=== PATIENT | female | born 1955 | race African-American/Black ===

== ENCOUNTER 2017-05-25 08:40 | Inpatient (IN) | payer MEDICAID ==
--- NOTE | 2017-05-25 09:38 | ER Document Report ---
ED General - General Chief Complaint: Altered Mental Status Stated Complaint: CONFUSION Time Seen by Provider: 05/25/17 09:29 Information source: Patient Notes: 61-year-old female that presents to the emergency department with her brother-in -law secondary to some increased confusion noted over the last 24 hours. Patient lives alone and the [id number] states that she normally is oriented to person place and time. He states that he called on the phone and she was "saying strange things". He states when he went to her house she was talking to people that were not present. She also stated that she wanted to visit his mother who has been for many years. On interviewing the patient herself, she denies any and all pain. Specifically denies any headache, chest pain, or abdominal pain. She denies any weakness or numbness, nausea, vomiting, cough, or fevers. She does not know why she is here. She did report that she believes she possibly fell yesterday but does not elaborate. TRAVEL OUTSIDE OF THE [place] IN LAST 30 DAYS: No - HPI Onset: Other - See above Onset/Duration: Persistent Quality of pain: No pain Severity: Moderate Pain Level: Denies Associated symptoms: Other - See above Exacerbated by: Denies Relieved by: Denies Similar symptoms previously: No Recently seen / treated by doctor: No - Related Data Allergies/Adverse Reactions: Penicillins Allergy (Severe, Verified 05/25/17 09:51) Hives Home Medications: Current Home Medications Amlodipine Besylate/Benazepril [Amlodipine-Benazepril 5-20 mg] 1 tab PO DAILY [History] Cetirizine HCl [Zyrtec 10 mg Tablet] 1 tab PO DAILY 05/25/17 [History] Past Medical History - General Information source: Patient - Social History Smoking Status: Unknown if Ever Smoked Cigarette use (# per day): No Chew tobacco use (# tins/day): No Smoking Education Provided: No Frequency of alcohol use: None Drug Abuse: None Family History: Reviewed & Not Pertinent Past Surgical History: Denies: Hx Pacemaker - Immunizations Hx Diphtheria, Pertussis, Tetanus Vaccination: No Review of Systems - Review of Systems Constitutional: denies: Fever EENT: denies: Eye discharge, Nose discharge Cardiovascular: denies: Chest pain, Palpitations Respiratory: denies: Short of breath Gastrointestinal: denies: Vomiting Genitourinary: denies: Dysuria Musculoskeletal: denies: Leg swelling Skin: Other - no hives. denies: Rash Neurological/Psychological: Other - no slurred speech -: Yes All other systems reviewed and negative Physical Exam - Vital signs Vitals: Temp Pulse Resp BP Pulse Ox 98.2 F 70 16 152/65 H 99 05/25/17 08:56 05/25/17 08:56 05/25/17 08:56 05/25/17 08:56 05/25/17 08:56 Notes: Reviewed vital signs and nursing note as charted by RN. CONSTITUTIONAL: Alert and polite. Patient is disoriented to president, place, and time HEAD: Normocephalic; atraumatic EYES: PERRL; Sclerae non-icteric ENT: Normal nose; no rhinorrhea; dry mucous membranes; pharynx without lesions noted NECK: Supple without meningismus; non-tender; no carotid bruits; no cervical lymphadenopathy, no masses CARD: Regular rate and rhythm; no murmurs, no clicks, no rubs, no gallops; symmetric distal pulses RESP: Normal chest excursion without splinting or tachypnea; breath sounds clear and equal bilaterally ABD/GI: Normal bowel sounds; non-distended; soft, non-tender, no palpable organomegaly or masses BACK: The back appears normal and is non-tender to palpation EXT: Normal ROM in all joints; non-tender to palpation; no edema SKIN: No acute lesions noted NEURO: CN 2-12 intact. Moves all extremities equally; 5 out of 5 bilateral upper and lower extremity strength with sensation intact to light touch PSYCH: The patient's mood and manner are appropriate. Grooming and personal hygiene are appropriate. Course - Re-evaluation Re-evalutation: 05/25/17 09:38 Given the history and physical examination I would like to evaluate for the possible causes of acute delirium. Patient currently has no pain and no focal neurological deficits. 05/25/17 10:01 EKG shows a heart of 72, normal sinus rhythm, normal axis, no obvious ST elevation or depression 05/25/17 10:39 No change in mental status or neurologic exam. CT scan of the head as recorded. Labs show some mild dehydration with an elevated sodium and chloride. Urine culture has been sent with an unremarkable urinalysis. Patient did have an admission in August 2015 with a diagnosis of encephalopathy most likely related to urinary tract infection. Patient will be admitted to the hospitalist service. - Vital Signs Vital signs: Temp Pulse Resp BP Pulse Ox 98.2 F 70 17 163/73 H 99 05/25/17 08:56 05/25/17 08:56 05/25/17 10:01 05/25/17 10:01 05/25/17 10:01 - Laboratory Result Diagrams: 05/25/17 09:32 05/25/17 09:32 Laboratory results interpreted by me: 05/25/17 05/25/17 05/25/17 09:14 09:32 09:32 Hct 35.2 L Sodium 145.4 H Chloride 109 H Carbon Dioxide 21 L BUN 27 H Calcium 10.6 H AST 53 H Total Protein 8.3 H Urine Protein 100 H Urine Ketones 20 H Urine Blood SMALL H Urine Urobilinogen 2.0 H Discharge - Discharge Clinical Impression: Altered mental status, unspecified Qualifiers: Altered mental status type: unspecified Qualified Code(s): R41.82 - Altered mental status, unspecified Condition: Fair Disposition: ADMITTED OBSERVATION Admitting Provider: Hospitalist Unit Admitted: Telemetry Referrals: KARI MYRICK MD [Primary Care Provider] - Follow up as needed
[2017-05-25 10:00] LABS: ABSOLUTE BASOPHILS # (AUTO) 0.1 10^3/uL (0.0-0.2); ABSOLUTE EOSINOPHILS # (AUTO) 0.1 10^3/uL (0.0-0.6); ABSOLUTE MONOCYTES (AUTO) 0.6 10^3/uL (0.1-1.4); ABSOLUTE NEUT (AUTO) 4.1 10^3/uL (1.7-8.2); EOSINOPHILS % (AUTO) 1.3 % (0-6); HEMATOCRIT 35.2 % (36.0-47.0); MEAN CORPUSCULAR HEMOGLOBIN 31.8 pg (27.0-33.4); MEAN CORPUSCULAR HGB CONC 34.1 g/dL (32.0-36.0); MEAN CORPUSCULAR VOLUME 93 fl (80-97); MONOCYTES % (AUTO) 8.1 % (3-13); PLATELET COUNT 317 10^3/uL (150-450); RED BLOOD COUNT 3.78 10^6/uL (3.72-5.28); RED CELL DISTRIBUTION WIDTH 12.9 % (11.5-14.0); SEGMENTED NEUTROPHILS % (AUTO) 59.6 % (42-78); TOTAL CELLS COUNTED % (AUTO) 100 %; WHITE BLOOD COUNT 6.8 10^3/uL (4.0-10.5)
[2017-05-25 10:01] LABS: INTERNATIONAL RATION (INR) 1.05; PROTHROMBIN TIME 14.4 SEC (11.4-15.4)
--- NOTE | 2017-05-25 10:02 | RADIOLOGY REPORT (SQ) ---
EXAM DESCRIPTION: CT HEAD WITHOUT COMPLETED DATE/TIME: 05/25/2017 9:43 am REASON FOR STUDY: 17, ams COMPARISON: 12/26/2015 TECHNIQUE: Axial images acquired through the brain without intravenous contrast. Images reviewed wi th bone, brain and subdural windows. Images stored on PACS. All CT scanners at this facility use dose modulation, iterative reconstruction, and/or weight based d osing when appropriate to reduce radiation dose to as low as reasonably achievable (ALARA). [facility]: Dose Right [facility]: CareDose [facility]: Dose Right [facility]: Teradose 4D [facility]: Smart Technologies RADIATION DOSE: CT Rad equipment meets quality standard of care and radiation dose reduction techniq ues were employed. CTDIvol: 64.6 mGy. DLP: 1034 mGy-cm. mGy. LIMITATIONS: None. FINDINGS: VENTRICLES: Compensatory enlargement of the right lateral ventricle and right occipital ho rn adjacent to encephalomalacia. No change. Ventricular system midline. CEREBRUM: There is again evidence of chronic right occipital parietal encephalomalacia unchanged. Co mpensatory enlargement of the right occipital horn noted. CEREBELLUM: No masses. No hemorrhage. No alteration of density. No evidence for acute infarction. EXTRAAXIAL SPACES: No fluid collections. No masses. ORBITS AND GLOBE: No intra- or extraconal masses. Normal contour of globe without masses. CALVARIUM: No fracture. PARANASAL SINUSES: No fluid or mucosal thickening. SOFT TISSUES: No mass or hematoma. OTHER: No other significant finding. IMPRESSION: NO SIGNIFICANT INTERVAL CHANGE. EVIDENCE OF ACUTE STROKE: NO. COMMENT: Quality ID # [id number]: Final reports with documentation of one or more dose reduction techniques (e.g., Automated exposure control, adjustment of the mA and/or kV according to patient size, use of iterative reconstruction technique) TECHNICAL DOCUMENTATION: JOB ID: [id number] SC-69 2010 [employer]- All Rights Reserved
[2017-05-25 10:12] LABS: ALANINE AMINOTRANSFERASE 36 U/L (9-52); ALBUMIN 4.5 g/dL (3.5-5.0); ALKALINE PHOSPHATASE 49 U/L (38-126); ANION GAP 15 (5-19); ASPARTATE AMINO TRANSFERASE 53 U/L (14-36); BILIRUBIN,DIRECT 0.4 mg/dL (0.0-0.4); BILIRUBIN,TOTAL 0.7 mg/dL (0.2-1.3); BLOOD UREA NITROGEN 27 mg/dL (7-20); CALCIUM 10.6 mg/dL (8.4-10.2); CARBON DIOXIDE 21 mmol/L (22-30); CHLORIDE 109 mmol/L (98-107); GLUCOSE 106 mg/dL (75-110); SODIUM 145.4 mmol/L (137-145); TOTAL PROTEIN 8.3 g/dL (6.3-8.2)
[2017-05-25 10:24] LABS: APPEARANCE,URINE SLIGHTLY-CLOUDY; BILIRUBIN,URINE NEGATIVE (NEGATIVE); COLOR,URINE YELLOW; GLUCOSE, URINE NEGATIVE (NEGATIVE); KETONES,URINE 20 mg/dL (NEGATIVE); LEUKOCYTE ESTERASE,URINE NEGATIVE (NEGATIVE); NITRITE,URINE NEGATIVE (NEGATIVE); PROTEIN,URINE 100 mg/dL (NEGATIVE); URINE SPECIFIC GRAVITY 1.025
[2017-05-25] MEDS ORDERED: NORMAL SALINE 1000 ML 1,000 ML IV ONE (10:31)
[2017-05-25] MEDS ORDERED: ACETAMINOPHEN 325 MG TABLET PO PRN (10:47)
[2017-05-25] MEDS ORDERED: INSULIN LISPRO 100 UNIT/ML 3 ML VIAL SUBCUT PRN (11:26)
[2017-05-25] MEDS ORDERED: DEXTROSE 50%-WATER 25 GM/50 ML DISP.SYRIN IV PRN ×2 (11:26)
[2017-05-25] MEDS ORDERED: GLUCAGON,HUMAN RECOMB 1 MG INJ IM PRN (11:26)
[2017-05-25] MEDS ORDERED: DEXTROSE 40% GEL 15 GM TUBE PO PRN ×2 (11:26)
--- NOTE | 2017-05-25 11:47 | PDOC H&P ---
History of Present Illness Admission Date/PCP: KARI MYRICK MD May 25, 2017 Patient complains of: No complaints History of Present Illness: SIRENA ZHAO is a 61 year old female who was brought into emergency room by her power of associate attorney who is her [id number]. Accordingly patient was walking down the streets and appeared to be disoriented. Upon inquiring she stated that she was going to go [place] [facility] to see her [id number]. The latter had around 20 years ago. Patient was also talking to people that were not in the room. Patient lives by herself however the power of associate attorney lives next door. He stated that when his brother he was asked to serve as power of associate attorney since she did carry a history of her brain tumor. Patient had a similar episode around a year ago. Up to his knowledge she takes care of cocaine and others chores at home. He admits that he does not know for how long she has been disoriented but he just noticed today. He also states that he thinks that she needs to go to a [place] [facility] since he cannot take care of her since he works. 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 Lives with: Alone Smoking Status: Unknown if Ever Smoked Frequency of Alcohol Use: None Hx Recreational Drug Use: No Drugs: None Hx Prescription Drug Abuse: No Family History Family History: Reviewed & Not Pertinent Parental Family History Reviewed: Yes Children Family History Reviewed: Yes Sibling(s) Family History Reviewed.: Yes Medication/Allergy Home Medications: Ibuprofen [Motrin 800 mg Tablet] 800 mg PO [id number] 08/23/15 Metformin HCl [Glucophage 500 mg Tablet] 500 mg PO BIDACBS #60 tablet 08/24/15 Amlodipine Besylate/Benazepril [Amlodipine-Benazepril 5-20 mg] 1 tab PO DAILY Cetirizine HCl [Zyrtec 10 mg Tablet] 1 tab PO DAILY 05/25/17 Allergies/Adverse Reactions: Penicillins Allergy (Severe, Verified 05/25/17 09:51) Hives Review of Systems ROS unobtainable: Due to mental status Physical Exam Vital Signs: Temp Pulse Resp BP Pulse Ox 98.2 F 70 17 163/73 H 99 05/25/17 08:56 05/25/17 08:56 05/25/17 10:01 05/25/17 10:01 05/25/17 10:01 Intake & Output 05/24/17 05/25/17 05/26/17 06:59 06:59 06:59 Weight 61 kg General appearance: PRESENT: no acute distress, cooperative, well-developed, well-nourished Head exam: PRESENT: atraumatic, normocephalic Eye exam: PRESENT: conjunctiva pink, EOMI, PERRLA. ABSENT: scleral icterus Ear exam: PRESENT: normal external ear exam Mouth exam: PRESENT: dry mucosa, neck supple Neck exam: PRESENT: full ROM. ABSENT: JVD, lymphadenopathy, tenderness, thyromegaly Respiratory exam: PRESENT: clear to auscultation oneil Cardiovascular exam: PRESENT: RRR. ABSENT: diastolic murmur, systolic murmur Vascular exam: PRESENT: normal capillary refill GI/Abdominal exam: PRESENT: normal bowel sounds, soft. ABSENT: guarding, tenderness Extremities exam: ABSENT: joint swelling, pedal edema Neurological exam: PRESENT: alert, awake, oriented to person, oriented to place , other - Mild left sided weakness Psychiatric exam: PRESENT: appropriate affect, normal mood Skin exam: PRESENT: intact, normal color Results Laboratory Results: 05/25/17 09:32 05/25/17 09:32 05/25/17 05/25/17 05/25/17 09:14 09:32 09:32 WBC 6.8 RBC 3.78 Hgb 12.0 Hct 35.2 L MCV 93 MCH 31.8 MCHC 34.1 RDW 12.9 Plt Count 317 Seg Neutrophils % 59.6 Lymphocytes % 30.0 Monocytes % 8.1 Eosinophils % 1.3 Basophils % 1.0 Absolute Neutrophils 4.1 Absolute Lymphocytes 2.0 Absolute Monocytes 0.6 Absolute Eosinophils 0.1 Absolute Basophils 0.1 Sodium 145.4 H Potassium 4.0 Chloride 109 H Carbon Dioxide 21 L Anion Gap 15 BUN 27 H Creatinine 0.94 Est GFR ( Amer) > 60 Est GFR (Non-Af Amer) > 60 Glucose 106 Calcium 10.6 H Total Bilirubin 0.7 AST 53 H ALT 36 Alkaline Phosphatase 49 Total Protein 8.3 H Albumin 4.5 Urine Color YELLOW Urine Appearance SLIGHTLY-CLOUDY Urine pH 5.0 Ur Specific [place] 1.025 Urine Protein 100 H Urine Glucose (UA) NEGATIVE Urine Ketones 20 H Urine Blood SMALL H Urine Nitrite NEGATIVE Ur Leukocyte Esterase NEGATIVE Urine WBC (Auto) 2 Urine RBC (Auto) 3 05/25/17 09:32 Troponin I < 0.012 Impressions: Head CT 05/25/17 09:31 IMPRESSION: NO SIGNIFICANT INTERVAL CHANGE. EVIDENCE OF ACUTE STROKE: NO. 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 Since blood pressure is elevated and to cover for the possibility of hypertensive encephalopathy will increase Norvasc to 10 mgs daily. To order vitamin B12 level since on metformin. Also to order ammonia and TSH level. Pseudodementia is also considered as part of the differential. She has a BUN slightly elevated to order stool for occult blood and will trend hemoglobin every 6 hours 4 (3) Old cerebrovascular accident (CVA) without late effect Is this a current diagnosis for this admission?: Yes Plan: Supportive (4) Dehydration Is this a current diagnosis for this admission?: Yes Plan: Continue IV fluids (5) Hypertensive urgency Is this a current diagnosis for this admission?: Yes Plan: To increase Norvasc to 10 mg p.o. daily and will continue lisinopril 20 mg p.o. daily. To request hydralazine for systolic blood pressure higher or equal to 160 or diastolic blood pressure higher or equal to 110. - Time Time Spent: 50 to 70 Minutes Medications reviewed and adjusted accordingly: Yes Anticipated discharge: SNF Within: within 48 hours - Inpatient Certification Based on my medical assessment, after consideration of the patient's comorbidities, presenting symptoms, or acuity I expect that the services needed warrant INPATIENT care.: No I certify that my determination is in accordance with my understanding of Medicare's requirements for reasonable and necessary INPATIENT services [42 CFR 412.3e].: Yes Medical Necessity: Need For IV Fluids
[2017-05-25] MEDS ORDERED: HYDRALAZINE HCL INJ/PF 20 MG/1 ML SDV IV PRN (11:48)
[2017-05-25] MEDS ORDERED: AMLODIPINE BESYLATE 10 MG TABLET PO ONE (12:00)
[2017-05-25] MEDS ORDERED: LISINOPRIL 10 MG TABLET PO ONE (12:00)
[2017-05-25] MEDS: NORMAL SALINE 1000 ML 1,000 ML IV PRN (12:27)
--- NOTE | 2017-05-25 16:41 | EKG REPORT ---
SEVERITY:- NORMAL ECG - SINUS RHYTHM : Confirmed by: Maynor Caraballo MD 25-May-2017 16:40:16
[2017-05-25] MEDS ORDERED: MIRTAZAPINE 15 MG TABLET PO SCH (22:00)
[2017-05-25] MEDS ORDERED: OLANZAPINE 2.5 MG TABLET PO SCH (22:00)
[2017-05-26] MEDS: NORMAL SALINE 1000 ML 1,000 ML IV PRN (05:21)
[2017-05-26 06:52] LABS: ABSOLUTE BASOPHILS # (AUTO) 0.1 10^3/uL (0.0-0.2); ABSOLUTE EOSINOPHILS # (AUTO) 0.2 10^3/uL (0.0-0.6); ABSOLUTE LYMPHOCYTES (AUTO) 2.4 10^3/uL (0.5-4.7); ABSOLUTE MONOCYTES (AUTO) 0.4 10^3/uL (0.1-1.4); ABSOLUTE NEUT (AUTO) 2.4 10^3/uL (1.7-8.2); BASOPHILS % (AUTO) 1.5 % (0-2); EOSINOPHILS % (AUTO) 3.9 % (0-6); HEMATOCRIT 30.6 % (36.0-47.0); HEMOGLOBIN 10.6 g/dL (12.0-15.5); LYMPHOCYTES % (AUTO) 43.1 % (13-45); MEAN CORPUSCULAR HEMOGLOBIN 31.9 pg (27.0-33.4); MEAN CORPUSCULAR HGB CONC 34.6 g/dL (32.0-36.0); MEAN CORPUSCULAR VOLUME 92 fl (80-97); MONOCYTES % (AUTO) 8.1 % (3-13); PLATELET COUNT 255 10^3/uL (150-450); RED BLOOD COUNT 3.32 10^6/uL (3.72-5.28); RED CELL DISTRIBUTION WIDTH 12.7 % (11.5-14.0); SEGMENTED NEUTROPHILS % (AUTO) 43.4 % (42-78); TOTAL CELLS COUNTED % (AUTO) 100 %; WHITE BLOOD COUNT 5.5 10^3/uL (4.0-10.5)
[2017-05-26 07:16] LABS: ALANINE AMINOTRANSFERASE 36 U/L (9-52); ALBUMIN 3.6 g/dL (3.5-5.0); ALKALINE PHOSPHATASE 42 U/L (38-126); ANION GAP 8 (5-19); ASPARTATE AMINO TRANSFERASE 40 U/L (14-36); BILIRUBIN,DIRECT 0.2 mg/dL (0.0-0.4); BILIRUBIN,TOTAL 0.5 mg/dL (0.2-1.3); BLOOD UREA NITROGEN 15 mg/dL (7-20); CALCIUM 9.4 mg/dL (8.4-10.2); CARBON DIOXIDE 24 mmol/L (22-30); CHLORIDE 111 mmol/L (98-107); GLUCOSE 109 mg/dL (75-110); MAGNESIUM 1.5 mg/dL (1.6-2.3); POTASSIUM 3.9 mmol/L (3.6-5.0); SODIUM 142.9 mmol/L (137-145); TOTAL PROTEIN 6.7 g/dL (6.3-8.2)
[2017-05-26] MEDS: MAGNESIUM SULFATE/D5W 1 GM/100 ML RTUPB IV SCH ×3 (08:48→12:49)
[2017-05-26] MEDS: AMLODIPINE BESYLATE 10 MG TABLET PO SCH (09:33)
[2017-05-26] MEDS: LISINOPRIL 10 MG TABLET PO SCH (09:33)
[2017-05-26] MEDS ORDERED: HALOPERIDOL LACTATE INJ 5 MG/1 ML VIAL IV ONE (12:45)
--- NOTE | 2017-05-26 15:15 | PDOC PROGRESS REPORT ---
Subjective Progress Note for:: 05/26/17 Subjective:: The patient was admitted for disorientation and hypertensive urgency. She remains extremely confused. She is oriented to person only. Reason For Visit: ALTERED MENTAL STATUS Physical Exam Vital Signs: Temp Pulse Resp BP Pulse Ox 97.9 F 86 18 156/72 H 100 05/26/17 12:04 05/26/17 12:04 05/26/17 12:04 05/26/17 12:04 05/26/17 12:04 Intake & Output 05/25/17 05/26/17 05/27/17 06:59 06:59 06:59 Intake Total 648 Output Total 0 Balance 648 Weight 61.8 kg Additional comments: Today, the patient was able to tell me her name. She could not recall the events that occurred yesterday and she was speaking about a man who was walking up and down the [place] overnight. The patient was able to tell me that she was in the [facility] but had to be reminded that she is in [facility]. She told me that it was . She got extremely angry when i asked her questions about her orientation. The patient appears to be older than her stated age of 61. However, she did not appear to be in any distress. She appears to be nontoxic. Her facial appearance is unremarkable. She moves all 4 extremities. Lungs are clear to auscultation bilaterally. Her cardiac exam is regular. She does not have any murmurs, gallops or rubs. The abdomen is soft, flat and benign. The lower extremities are without edema. The skin is clean, warm, dry and intact without lesions or rashes. Results Laboratory Results: 05/26/17 06:23 05/26/17 06:23 05/26/17 05/26/17 06:23 06:23 WBC 5.5 RBC 3.32 L Hgb 10.6 L Hct 30.6 L MCV 92 MCH 31.9 MCHC 34.6 RDW 12.7 Plt Count 255 Seg Neutrophils % 43.4 Lymphocytes % 43.1 Monocytes % 8.1 Eosinophils % 3.9 Basophils % 1.5 Absolute Neutrophils 2.4 Absolute Lymphocytes 2.4 Absolute Monocytes 0.4 Absolute Eosinophils 0.2 Absolute Basophils 0.1 Sodium 142.9 Potassium 3.9 Chloride 111 H Carbon Dioxide 24 Anion Gap 8 BUN 15 Creatinine 0.67 Est GFR ( Amer) > 60 Est GFR (Non-Af Amer) > 60 Glucose 109 Calcium 9.4 Magnesium 1.5 L Total Bilirubin 0.5 AST 40 H ALT 36 Alkaline Phosphatase 42 Total Protein 6.7 Albumin 3.6 05/25/17 05/25/17 12:20 18:50 Troponin I < 0.012 < 0.012 Impressions: Head CT 05/25/17 09:31 IMPRESSION: NO SIGNIFICANT INTERVAL CHANGE. EVIDENCE OF ACUTE STROKE: NO. Assessment & Plan - Diagnosis (1) Hypercalcemia Is this a current diagnosis for this admission?: Yes Plan: Improved after hydration (2) Altered mental status, unspecified Qualifiers: Altered mental status type: disorientation Qualified Code(s): R41.0 - Disorientation, unspecified Is this a current diagnosis for this admission?: Yes Plan: I have not identified an acute source of delirium in this patient such as infection. She may have underlying dementia. Certainly, she is not fit for discharge to go home. (3) Dehydration Is this a current diagnosis for this admission?: Yes Plan: Patient has received IV fluids. (4) Diabetes Qualifiers: Diabetes mellitus type: type 2 Diabetes mellitus complication status: without complication Diabetes mellitus mcfp insulin use: without mcfp use Qualified Code(s): E11.9 - Type 2 diabetes mellitus without complications Is this a current diagnosis for this admission?: Yes Plan: Blood sugars appear to be under good control. Continue sliding scale. (5) Hypertensive urgency Is this a current diagnosis for this admission?: Yes Plan: Norvasc was increased and patient remains on lisinopril. (6) Old cerebrovascular accident (CVA) without late effect Is this a current diagnosis for this admission?: Yes - Time Time Spent with patient: 15-24 minutes Anticipated discharge: SNF - Plan Summary Plan Summary: The patient does not appear to be suitable for discharge to home. She will likely need placement.
[2017-05-26] MEDS ORDERED: HALOPERIDOL 2 MG TABLET PO PRN (15:16)
[2017-05-26] MEDS ORDERED: ZIPRASIDONE MESYLATE INJ/PF 20 MG SDV IM ONE (20:31)
[2017-05-27 07:02] LABS: ANION GAP 9 (5-19); BLOOD UREA NITROGEN 11 mg/dL (7-20); CALCIUM 9.9 mg/dL (8.4-10.2); CARBON DIOXIDE 23 mmol/L (22-30); CHLORIDE 113 mmol/L (98-107); GLUCOSE 97 mg/dL (75-110); POTASSIUM 3.7 mmol/L (3.6-5.0); SODIUM 145.1 mmol/L (137-145)
[2017-05-27] MEDS: AMLODIPINE BESYLATE 10 MG TABLET PO SCH (10:51)
[2017-05-27] MEDS: LISINOPRIL 10 MG TABLET PO SCH (10:51)
--- NOTE | 2017-05-27 11:50 | PDOC PROGRESS REPORT ---
Subjective Progress Note for:: 05/27/17 Subjective:: The patient was admitted for disorientation and hypertensive urgency. She remains extremely confused. She is oriented to person only. She was able to tell me today that she has been receiving disability for a previous history of a brain tumor. Unfortunately, she could not give me any additional details. Reason For Visit: ALTERED MENTAL STATUS Physical Exam Vital Signs: Temp Pulse Resp BP Pulse Ox 98.5 F 81 16 158/62 H 98 05/27/17 07:34 05/27/17 07:34 05/27/17 03:57 05/27/17 07:34 05/27/17 07:34 Intake & Output 05/26/17 05/27/17 05/28/17 06:59 06:59 06:59 Intake Total 648 1872 Output Total 0 Balance 648 1872 Weight 61.8 kg 66.3 kg Additional comments: The patient did not appear to be in any distress. She was pleasant with me this morning. Her facial appearance is unremarkable. She moves all 4 extremities and can follow commands. Her lungs are clear to auscultation bilaterally. Her cardiac exam is regular without murmurs, gallops or rubs. The abdomen is soft, flat and benign. Bowel sounds are present in all 4 quadrants. The lower extremities are warm to touch. No edema is present. The skin is warm, dry and intact without lesions or rashes. Results Laboratory Results: 05/26/17 06:23 05/27/17 06:04 05/27/17 06:04 Sodium 145.1 H Potassium 3.7 Chloride 113 H Carbon Dioxide 23 Anion Gap 9 BUN 11 Creatinine 0.72 Est GFR ( Amer) > 60 Est GFR (Non-Af Amer) > 60 Glucose 97 Calcium 9.9 Magnesium 2.0 05/25/17 05/25/17 12:20 18:50 Troponin I < 0.012 < 0.012 Impressions: Head CT 05/25/17 09:31 IMPRESSION: NO SIGNIFICANT INTERVAL CHANGE. EVIDENCE OF ACUTE STROKE: NO. Assessment & Plan - Diagnosis (1) Hypercalcemia Is this a current diagnosis for this admission?: Yes Plan: Improved after hydration (2) Altered mental status, unspecified Qualifiers: Altered mental status type: disorientation Qualified Code(s): R41.0 - Disorientation, unspecified Is this a current diagnosis for this admission?: Yes Plan: I have not identified an acute source of delirium in this patient such as infection. She may have underlying dementia. Certainly, she is not fit for discharge to go home. I will consult psychiatry. I was unable to find any old records regarding her diagnosis and care for the history of brain tumor. The patient has received Haldol as needed agitation. (3) Dehydration Is this a current diagnosis for this admission?: Yes Plan: Patient has received IV fluids. IV fluids were discontinued. 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 Continue sliding scale. (5) Hypertensive urgency Is this a current diagnosis for this admission?: Yes Plan: Norvasc was increased and patient remains on lisinopril. Blood pressures appear to be somewhat labile. Patient had low blood pressure this morning. I am not going to increase blood pressure medications further at this time. (6) Old cerebrovascular accident (CVA) without late effect Is this a current diagnosis for this admission?: Yes Plan: The patient does not present with any focal neurological defects at this time. - Time Time Spent with patient: 15-24 minutes - Inpatient Certification Medical Necessity: Significant Comorbidiites Make Outpatient Treatment Too Risky , Need Close Monitoring Due to Risk of Patient Decompensation, Need for Neurological Checks, Risk of Complication if Not Cared For in Hospital
--- NOTE | 2017-05-27 12:50 | Physician Advisory Note ---
Physician Advisor ProgressNote .: Pursuant to the plan [facility], I have reviewed the medical record for this patient. Physician Advisor Statement: Please consider documenting, if you agree: 1. "Acute hypernatremia, likely due to " 2. The systolic BPs 180+/ &/or diastolic BPs 120+, that support the dx of hypertensive urgency - or was this dx ruled out? Status: continues with mental status far from baseline, eval continuing past 2 MNs. Appropriate for change to Inpatient status. THanks! CK
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
[2017-05-27] MEDS ORDERED: DIVALPROEX SODIUM 250 MG TAB.SR.24H PO SCH (18:00)
[2017-05-27] MEDS ORDERED: DIVALPROEX SODIUM 250 MG TABLET.DR PO ONE (19:30)
[2017-05-27] MEDS: CLONIDINE HCL 0.1 MG TABLET PO PRN (21:32)
[2017-05-27] MEDS ORDERED: BUSPIRONE HCL 10 MG TABLET PO SCH (22:00)
[2017-05-28 06:13] LABS: ANION GAP 11 (5-19); BLOOD UREA NITROGEN 13 mg/dL (7-20); CALCIUM 9.7 mg/dL (8.4-10.2); CARBON DIOXIDE 24 mmol/L (22-30); CHLORIDE 110 mmol/L (98-107); GLUCOSE 113 mg/dL (75-110); POTASSIUM 3.8 mmol/L (3.6-5.0); SODIUM 144.6 mmol/L (137-145)
[2017-05-28] MEDS: BUSPIRONE HCL 10 MG TABLET PO SCH (07:48)
[2017-05-28] MEDS: LISINOPRIL 10 MG TABLET PO SCH (11:00)
[2017-05-28] MEDS: DIVALPROEX SODIUM 250 MG TABLET.DR PO SCH ×2 (11:00→20:15)
[2017-05-28] MEDS: AMLODIPINE BESYLATE 10 MG TABLET PO SCH (11:00)
[2017-05-28] MEDS: CLONIDINE HCL 0.1 MG TABLET PO PRN (11:03)
--- NOTE | 2017-05-28 12:04 | PDOC PROGRESS REPORT ---
Subjective Progress Note for:: 05/28/17 Subjective:: The patient was admitted for disorientation and hypertensive urgency. She remains extremely confused. She is oriented to person only. Yesterday, she was able to tell me today that she has been receiving disability for a previous history of a brain tumor. Unfortunately, she could not give me any additional details. Psychiatry evaluated the patient yesterday. She has been diagnosed with moderate dementia. At this point time we are making arrangements for a senior living facility. Reason For Visit: ALTERED MENTAL STATUS Physical Exam Vital Signs: Temp Pulse Resp BP Pulse Ox 98.0 F 61 18 144/56 H 99 05/28/17 07:34 05/28/17 07:34 05/28/17 07:34 05/28/17 07:34 05/28/17 07:34 Intake & Output 05/27/17 05/28/17 05/29/17 06:59 06:59 06:59 Intake Total 1872 1388 Balance 1872 1388 Weight 66.3 kg 65.1 kg Additional comments: The patient remains oriented to person but not place. She appears to be cooperative and in good spirits. She has not had any belligerent behavior in over 36 hours. Her facial appearance demonstrates increased skin pigmentation in the periorbital area but is otherwise unremarkable. Her lungs are clear to auscultation bilaterally. Her cardiac exam is regular without murmurs, gallops or rubs. The abdomen is soft and flat. Bowel sounds are present. The extremities are unremarkable. Skin is warm dry and intact without lesions or rashes. Results Laboratory Results: 05/26/17 06:23 05/28/17 05:32 05/28/17 05:32 Sodium 144.6 Potassium 3.8 Chloride 110 H Carbon Dioxide 24 Anion Gap 11 BUN 13 Creatinine 0.73 Est GFR ( Amer) > 60 Est GFR (Non-Af Amer) > 60 Glucose 113 H Calcium 9.7 05/25/17 05/25/17 12:20 18:50 Troponin I < 0.012 < 0.012 Impressions: Head CT 05/25/17 09:31 IMPRESSION: NO SIGNIFICANT INTERVAL CHANGE. EVIDENCE OF ACUTE STROKE: NO. Assessment & Plan - Diagnosis (1) Hypercalcemia Is this a current diagnosis for this admission?: Yes Plan: Improved after hydration (2) Altered mental status, unspecified Qualifiers: Altered mental status type: disorientation Qualified Code(s): R41.0 - Disorientation, unspecified Is this a current diagnosis for this admission?: Yes Plan: The patient appears to have dementia. Recommendations and input from psychiatry are greatly appreciated. I have initiated the medications as recommended. (3) Dehydration Is this a current diagnosis for this admission?: Yes Plan: Patient has received IV fluids. IV fluids were discontinued. (4) Diabetes Qualifiers: Diabetes mellitus type: type 2 Diabetes mellitus complication status: without complication Diabetes mellitus terminal operator insulin use: without terminal operator use Qualified Code(s): E11.9 - Type 2 diabetes mellitus without complications Is this a current diagnosis for this admission?: Yes Plan: Blood sugars appear to be under good control. Continue sliding scale. (5) Hypertensive urgency Is this a current diagnosis for this admission?: Yes Plan: The patient's maximum blood pressure diastolic was 105. She did not meet criteria for hypertensive urgency based on systolic or diastolic blood pressure. Hypertensive urgency has been ruled out. Diagnosis should be changed to uncontrolled hypertension. Blood pressure is much improved. No changes to regimen today. (6) Old cerebrovascular accident (CVA) without late effect Is this a current diagnosis for this admission?: Yes Plan: The patient does not present with any focal neurological defects at this time. (7) Hypernatremia Is this a current diagnosis for this admission?: Yes Plan: Hypernatremia was present due to dehydration (hypovolemia). this resolved with IV fluids. (8) Anemia Is this a current diagnosis for this admission?: Yes Plan: The patient's hemoglobin trended down after IV fluids. This is likely delusional. MCV is normal. Will repeat a level in the morning. - Time Time Spent with patient: 15-24 minutes - Inpatient Certification Medical Necessity: Need Close Monitoring Due to Risk of Patient Decompensation, Need for Neurological Checks, Risk of Complication if Not Cared For in Hospital - Plan Summary Plan Summary: Patient is not safe for discharge to home. Arrangements are being made for placement to a skilled facility.
[2017-05-28] MEDS ORDERED: CLONIDINE HCL 0.1 MG TABLET PO ONE ×2 (14:00→14:30)
[2017-05-28] MEDS ORDERED: CLONIDINE HCL 0.1 MG TABLET PO PRN (14:19)
[2017-05-28] MEDS ORDERED: HALOPERIDOL 2 MG TABLET PO ONE (15:15)
[2017-05-29 05:14] LABS: ABSOLUTE BASOPHILS # (AUTO) 0.1 10^3/uL (0.0-0.2); ABSOLUTE EOSINOPHILS # (AUTO) 0.2 10^3/uL (0.0-0.6); ABSOLUTE LYMPHOCYTES (AUTO) 2.4 10^3/uL (0.5-4.7); ABSOLUTE MONOCYTES (AUTO) 0.4 10^3/uL (0.1-1.4); ABSOLUTE NEUT (AUTO) 2.5 10^3/uL (1.7-8.2); BASOPHILS % (AUTO) 1.1 % (0-2); EOSINOPHILS % (AUTO) 3.7 % (0-6); HEMATOCRIT 31.7 % (36.0-47.0); HEMOGLOBIN 10.8 g/dL (12.0-15.5); LYMPHOCYTES % (AUTO) 43.2 % (13-45); MEAN CORPUSCULAR HEMOGLOBIN 31.5 pg (27.0-33.4); MEAN CORPUSCULAR HGB CONC 34.1 g/dL (32.0-36.0); MEAN CORPUSCULAR VOLUME 92 fl (80-97); MONOCYTES % (AUTO) 7.2 % (3-13); PLATELET COUNT 282 10^3/uL (150-450); RED BLOOD COUNT 3.44 10^6/uL (3.72-5.28); RED CELL DISTRIBUTION WIDTH 12.7 % (11.5-14.0); SEGMENTED NEUTROPHILS % (AUTO) 44.8 % (42-78); TOTAL CELLS COUNTED % (AUTO) 100 %; WHITE BLOOD COUNT 5.6 10^3/uL (4.0-10.5)
[2017-05-29 05:38] LABS: ANION GAP 9 (5-19); BLOOD UREA NITROGEN 13 mg/dL (7-20); CALCIUM 10.3 mg/dL (8.4-10.2); CARBON DIOXIDE 25 mmol/L (22-30); CHLORIDE 108 mmol/L (98-107); GLUCOSE 103 mg/dL (75-110); MAGNESIUM 1.7 mg/dL (1.6-2.3); POTASSIUM 4.1 mmol/L (3.6-5.0)
[2017-05-29] MEDS: BUSPIRONE HCL 10 MG TABLET PO SCH (10:10)
[2017-05-29] MEDS: AMLODIPINE BESYLATE 10 MG TABLET PO SCH (10:11)
[2017-05-29] MEDS: DIVALPROEX SODIUM 250 MG TABLET.DR PO SCH ×2 (10:11→17:06)
[2017-05-29] MEDS: LISINOPRIL 10 MG TABLET PO SCH (10:12)
--- NOTE | 2017-05-29 15:02 | PDOC PROGRESS REPORT ---
Subjective Progress Note for:: 05/29/17 Subjective:: The patient was admitted for disorientation. Upon admission, her blood pressure was noted to be uncontrolled. She remains extremely confused. She is oriented to person only. In general, she is very polite and cooperative, but, at times she can become very agitated. Psychiatry has been by to evaluate the patient. They feel that her presentation is most consistent with moderate dementia. This morning, her calcium is elevated again. Now I am concerned about the possibility of hyperparathyroidism. If this could be causing her abnormal cognitive state she may require surgery. I have ordered a parathyroid hormone level. Reason For Visit: ALTERED MENTAL STATUS,HYPERNATREMIA Physical Exam Vital Signs: Temp Pulse Resp BP Pulse Ox 97.5 F 66 18 167/62 H 100 05/29/17 11:57 05/29/17 11:57 05/29/17 11:57 05/29/17 11:57 05/29/17 11:57 Intake & Output 05/28/17 05/29/17 05/30/17 06:59 06:59 06:59 Intake Total 1388 650 Balance 1388 650 Weight 65.1 kg 65.1 kg Additional comments: The patient was very polite and cooperative this morning. Her facial appearance demonstrates hyperpigmentation around her periorbital area. Otherwise, her facial appearance is normal. Her lungs are clear to auscultation bilaterally. Her cardiac exam is regular without murmurs, gallops or rubs. The abdomen is soft and flat. The lower extremities are warm to touch without any significant pitting edema. The skin is warm, dry and intact without lesions or rashes. Results Laboratory Results: 05/29/17 04:40 05/29/17 04:40 05/29/17 05/29/17 05/29/17 04:40 04:40 11:35 WBC 5.6 RBC 3.44 L Hgb 10.8 L Hct 31.7 L MCV 92 MCH 31.5 MCHC 34.1 RDW 12.7 Plt Count 282 Seg Neutrophils % 44.8 Lymphocytes % 43.2 Monocytes % 7.2 Eosinophils % 3.7 Basophils % 1.1 Absolute Neutrophils 2.5 Absolute Lymphocytes 2.4 Absolute Monocytes 0.4 Absolute Eosinophils 0.2 Absolute Basophils 0.1 Sodium 142.0 Potassium 4.1 Chloride 108 H Carbon Dioxide 25 Anion Gap 9 BUN 13 Creatinine 0.75 Est GFR ( Amer) > 60 Est GFR (Non-Af Amer) > 60 Glucose 103 Calcium 10.3 H Magnesium 1.7 PTH Intact 24.3 05/25/17 05/25/17 12:20 18:50 Troponin I < 0.012 < 0.012 Impressions: Head CT 05/25/17 09:31 IMPRESSION: NO SIGNIFICANT INTERVAL CHANGE. EVIDENCE OF ACUTE STROKE: NO. Assessment & Plan - Diagnosis (1) Hypercalcemia Is this a current diagnosis for this admission?: Yes Plan: The patient's parathyroid hormone level is normal. With persistent hypercalcemia it should be suppressed. I am going to order a thyroid ultrasound. Patient has hyperparathyroidism. She may benefit from surgery. While definitive evaluation does not need to be accomplished in the hospital we should make sure that the patient has appropriate arrangements after discharge pending ultrasound results. Due to such a minimal elevation of calcium at this time I will not add calcitonin but this can be considered. The patient does not eat or drink well. He will try to encourage p.o. intake of fluids. We should avoid thiazide diuretics and lithium. (2) Altered mental status, unspecified Qualifiers: Altered mental status type: disorientation Qualified Code(s): R41.0 - Disorientation, unspecified Is this a current diagnosis for this admission?: Yes Plan: The patient appears to have dementia. Recommendations and input from psychiatry are greatly appreciated. I have initiated the medications as recommended. I am also concerned about hyperparathyroidism. See recommendations above for further evaluation. (3) Dehydration Is this a current diagnosis for this admission?: Yes Plan: Patient has received IV fluids. IV fluids were discontinued. (4) Diabetes Qualifiers: Diabetes mellitus type: type 2 Diabetes mellitus complication status: without complication Diabetes mellitus termite treater helper insulin use: without skilled nursing use Qualified Code(s): E11.9 - Type 2 diabetes mellitus without complications Is this a current diagnosis for this admission?: Yes Plan: Blood sugars appear to be under good control. Continue sliding scale. (5) Hypertensive urgency Is this a current diagnosis for this admission?: Yes Plan: The patient's maximum blood pressure diastolic was 105. She did not meet criteria for hypertensive urgency based on systolic or diastolic blood pressure. Hypertensive urgency has been ruled out. Diagnosis should be changed to uncontrolled hypertension. Blood pressure is much improved. No changes to regimen today. (6) Old cerebrovascular accident (CVA) without late effect Is this a current diagnosis for this admission?: Yes Plan: The patient does not present with any focal neurological defects at this time. (7) Hypernatremia Is this a current diagnosis for this admission?: Yes Plan: Hypernatremia was present due to dehydration (hypovolemia). this resolved with IV fluids. (8) Anemia Is this a current diagnosis for this admission?: Yes Plan: The patient's hemoglobin trended down after IV fluids. This is likely dilutional. MCV is normal. Repeat level is normal. - Time Time Spent with patient: 15-24 minutes - Inpatient Certification Medical Necessity: Need for Neurological Checks, Risk of Complication if Not Cared For in Hospital - Plan Summary Plan Summary: Arrangements are being made to place the patient in a skilled facility.
--- NOTE | 2017-05-29 20:31 | RADIOLOGY REPORT (SQ) ---
EXAM DESCRIPTION: U/S THYROID/SFT TISS HD NECK COMPLETED DATE/TIME: 05/29/2017 8:13 pm REASON FOR STUDY: Hyperparathyroidism COMPARISON: None. TECHNIQUE: Dynamic and static lynch-scale images acquired of the thyroid gland. Selected additional c olor/power Doppler images recorded. All images stored to PACS. LIMITATIONS: None. FINDINGS: RIGHT LOBE: Normal size. Homogeneous echotexture. 6 mm likely solid nodule along the eloina p aspect of the mid gland. Unclear if this lies within the thyroid or is outside the confines of the gland. Location away from the poles argues against a parathyroid adenoma, however. LEFT LOBE: Normal size. Homogeneous echotexture. Isoechoic 7 mm relatively superficial mid gland no dule. ISTHMUS: Normal size. Homogeneous echotexture. No cystic or solid masses. OTHER: No other significant finding. IMPRESSION: Small thyroid nodules without dominant or suspicious lesion as above. TECHNICAL DOCUMENTATION: JOB ID: [id number] [employer]- All Rights Reserved
[2017-05-30 07:02] LABS: ANION GAP 10 (5-19); BLOOD UREA NITROGEN 13 mg/dL (7-20); CALCIUM 10.3 mg/dL (8.4-10.2); CARBON DIOXIDE 27 mmol/L (22-30); CHLORIDE 107 mmol/L (98-107); GLUCOSE 112 mg/dL (75-110); POTASSIUM 4.1 mmol/L (3.6-5.0); SODIUM 144.2 mmol/L (137-145)
[2017-05-30] MEDS: BUSPIRONE HCL 10 MG TABLET PO SCH (08:33)
[2017-05-30] MEDS: LISINOPRIL 10 MG TABLET PO SCH (09:33)
[2017-05-30] MEDS: DIVALPROEX SODIUM 250 MG TABLET.DR PO SCH ×2 (09:34→18:16)
[2017-05-30] MEDS: AMLODIPINE BESYLATE 10 MG TABLET PO SCH (09:35)
[2017-05-30] MEDS ORDERED: HYDRALAZINE HCL INJ/PF 20 MG/1 ML SDV IV PRN (14:30)
[2017-05-30] MEDS ORDERED: ACETAMINOPHEN 325 MG TABLET PO PRN (14:30)
--- NOTE | 2017-05-30 18:37 | PDOC PROGRESS REPORT ---
Subjective Progress Note for:: 05/30/17 Subjective:: No complaints at present Awaiting placement Reason For Visit: ALTERED MENTAL STATUS,HYPERNATREMIA Physical Exam Vital Signs: Temp Pulse Resp BP Pulse Ox 98.5 F 69 18 142/57 H 100 05/30/17 15:28 05/30/17 15:28 05/30/17 15:28 05/30/17 15:28 05/30/17 15:28 Intake & Output 05/29/17 05/30/17 05/31/17 06:59 06:59 06:59 Intake Total 650 1769 1095 Balance 650 1769 1095 Weight 65.1 kg 63 kg General appearance: PRESENT: no acute distress Head exam: PRESENT: atraumatic, normocephalic Eye exam: PRESENT: EOMI, PERRLA. ABSENT: nystagmus Ear exam: PRESENT: normal external ear exam Mouth exam: PRESENT: neck supple Neck exam: ABSENT: tenderness, thyromegaly, tracheal deviation Respiratory exam: PRESENT: clear to auscultation oneil, unlabored Cardiovascular exam: PRESENT: RRR Pulses: PRESENT: normal carotid pulses GI/Abdominal exam: PRESENT: normal bowel sounds, soft. ABSENT: tenderness Rectal exam: PRESENT: deferred Neurological exam: PRESENT: alert, awake Results Laboratory Results: 05/29/17 04:40 05/30/17 05:34 05/30/17 05:34 Sodium 144.2 Potassium 4.1 Chloride 107 Carbon Dioxide 27 Anion Gap 10 BUN 13 Creatinine 0.76 Est GFR ( Amer) > 60 Est GFR (Non-Af Amer) > 60 Glucose 112 H Calcium 10.3 H 05/25/17 05/25/17 12:20 18:50 Troponin I < 0.012 < 0.012 Impressions: Head CT 05/25/17 09:31 IMPRESSION: NO SIGNIFICANT INTERVAL CHANGE. EVIDENCE OF ACUTE STROKE: NO. Thyroid Ultrasound 05/29/17 00:00 IMPRESSION: Small thyroid nodules without dominant or suspicious lesion as above. Assessment & Plan - Diagnosis (1) Altered mental status, unspecified Qualifiers: Altered mental status type: disorientation Qualified Code(s): R41.0 - Disorientation, unspecified Is this a current diagnosis for this admission?: Yes (2) Dehydration Is this a current diagnosis for this admission?: Yes (3) Diabetes Qualifiers: Diabetes mellitus type: type 2 Diabetes mellitus complication status: without complication Diabetes mellitus exterminator helper insulin use: without exterminator helper use Qualified Code(s): E11.9 - Type 2 diabetes mellitus without complications Is this a current diagnosis for this admission?: Yes (4) Hypertensive urgency Is this a current diagnosis for this admission?: Yes - Time Time Spent with patient: 25-34 minutes - Plan Summary Plan Summary: Blood pressure much improved with medication adjustments by Dr. Gray Hypercalcemia work up underway, continue IV fluids Suspect primary hyperparathyroidism Awaiting placement
[2017-05-31 05:30] LABS: ANION GAP 11 (5-19); BLOOD UREA NITROGEN 13 mg/dL (7-20); CALCIUM 10.5 mg/dL (8.4-10.2); CARBON DIOXIDE 29 mmol/L (22-30); CHLORIDE 105 mmol/L (98-107); GLUCOSE 98 mg/dL (75-110); MAGNESIUM 1.7 mg/dL (1.6-2.3); PHOSPHORUS 4.6 mg/dL (2.5-4.5); POTASSIUM 4.2 mmol/L (3.6-5.0); SODIUM 144.9 mmol/L (137-145)
[2017-05-31] MEDS: BUSPIRONE HCL 10 MG TABLET PO SCH (07:49)
[2017-05-31] MEDS: DIVALPROEX SODIUM 250 MG TABLET.DR PO SCH ×2 (09:32→17:55)
[2017-05-31] MEDS: LISINOPRIL 10 MG TABLET PO SCH (09:32)
[2017-05-31] MEDS: AMLODIPINE BESYLATE 10 MG TABLET PO SCH (09:32)
--- NOTE | 2017-05-31 18:53 | PDOC PROGRESS REPORT ---
Subjective Subjective:: No complaints at present Awaiting placement. Reason For Visit: ALTERED MENTAL STATUS,HYPERNATREMIA Physical Exam Vital Signs: Temp Pulse Resp BP Pulse Ox 98.2 F 67 18 154/59 H 100 05/31/17 16:11 05/31/17 16:11 05/31/17 16:11 05/31/17 16:11 05/31/17 16:11 Intake & Output 05/30/17 05/31/17 06/01/17 06:59 06:59 06:59 Intake Total 1769 1515 400 Output Total 100 Balance 1769 1415 400 Weight 63 kg 62.7 kg General appearance: PRESENT: no acute distress Ear exam: PRESENT: normal external ear exam Throat exam: ABSENT: tonsillar exudate Neck exam: ABSENT: tracheal deviation Respiratory exam: PRESENT: unlabored Cardiovascular exam: PRESENT: RRR Results Laboratory Results: 05/29/17 04:40 05/31/17 03:57 05/31/17 03:57 Sodium 144.9 Potassium 4.2 Chloride 105 Carbon Dioxide 29 Anion Gap 11 BUN 13 Creatinine 0.75 Est GFR ( Amer) > 60 Est GFR (Non-Af Amer) > 60 Glucose 98 Calcium 10.5 H Phosphorus 4.6 H Magnesium 1.7 05/25/17 05/25/17 12:20 18:50 Troponin I < 0.012 < 0.012 Impressions: Head CT 05/25/17 09:31 IMPRESSION: NO SIGNIFICANT INTERVAL CHANGE. EVIDENCE OF ACUTE STROKE: NO. Thyroid Ultrasound 05/29/17 00:00 IMPRESSION: Small thyroid nodules without dominant or suspicious lesion as above. Assessment & Plan - Diagnosis (1) Altered mental status, unspecified Qualifiers: Altered mental status type: disorientation Qualified Code(s): R41.0 - Disorientation, unspecified Is this a current diagnosis for this admission?: Yes (2) Dehydration Is this a current diagnosis for this admission?: Yes (3) Diabetes Qualifiers: Diabetes mellitus type: type 2 Diabetes mellitus complication status: without complication Diabetes mellitus tank terminal gauger insulin use: without tank terminal gauger use Qualified Code(s): E11.9 - Type 2 diabetes mellitus without complications Is this a current diagnosis for this admission?: Yes (4) Hypertensive urgency Is this a current diagnosis for this admission?: Yes - Time Time Spent with patient: Less than 15 minutes - Plan Summary Plan Summary: Awaiting placement.
[2017-06-01 06:41] LABS: ANION GAP 9 (5-19); BLOOD UREA NITROGEN 14 mg/dL (7-20); CALCIUM 10.1 mg/dL (8.4-10.2); CARBON DIOXIDE 30 mmol/L (22-30); CHLORIDE 105 mmol/L (98-107); GLUCOSE 115 mg/dL (75-110); POTASSIUM 4.1 mmol/L (3.6-5.0)
[2017-06-01] MEDS: BUSPIRONE HCL 10 MG TABLET PO SCH (07:49)
[2017-06-01] MEDS: AMLODIPINE BESYLATE 10 MG TABLET PO SCH (09:38)
[2017-06-01] MEDS: DIVALPROEX SODIUM 250 MG TABLET.DR PO SCH ×2 (09:38→17:49)
[2017-06-01] MEDS: LISINOPRIL 10 MG TABLET PO SCH (09:38)
[2017-06-02] MEDS: LISINOPRIL 10 MG TABLET PO SCH (09:49)
[2017-06-02] MEDS: DIVALPROEX SODIUM 250 MG TABLET.DR PO SCH ×2 (09:49→17:04)
[2017-06-02] MEDS: AMLODIPINE BESYLATE 10 MG TABLET PO SCH (09:51)
[2017-06-02] MEDS: BUSPIRONE HCL 10 MG TABLET PO SCH (09:52)
--- NOTE | 2017-06-02 10:36 | PDOC PROGRESS REPORT ---
Subjective Progress Note for:: 06/01/17 Subjective:: 61-year-old female with dementia who was found wandering outside. No complaints at present Awaiting placement. She was admitted to the hospital with acute encephalopathy due to dehydration as well as a hypertensive urgency. She is doing better now and is awaiting disposition to a group home facility. Reason For Visit: ALTERED MENTAL STATUS,HYPERNATREMIA Physical Exam Vital Signs: Temp Pulse Resp BP Pulse Ox 98.3 F 74 18 143/62 H 100 06/02/17 07:47 06/02/17 07:47 06/02/17 07:47 06/02/17 07:47 06/02/17 07:47 Intake & Output 06/01/17 06/02/17 06/03/17 06:59 06:59 06:59 Intake Total 950 673 Balance 950 673 Weight 60.07 kg 61.3 kg Additional comments: Middle-aged female sitting comfortably in bed not in acute distress Cardiac: S1-S2 regular no murmurs heard no peripheral edema no calf tenderness no peripheral cyanosis Resp: Lungs clear to auscultation bilaterally normal respiratory effort Abdomen: Soft no focal tenderness normal bowel sounds Skin: Warm and dry Results Laboratory Results: 05/29/17 04:40 06/01/17 05:00 05/25/17 05/25/17 12:20 18:50 Troponin I < 0.012 < 0.012 Impressions: Head CT 05/25/17 09:31 IMPRESSION: NO SIGNIFICANT INTERVAL CHANGE. EVIDENCE OF ACUTE STROKE: NO. Thyroid Ultrasound 05/29/17 00:00 IMPRESSION: Small thyroid nodules without dominant or suspicious lesion as above. Assessment & Plan - Diagnosis (1) Altered mental status, unspecified Qualifiers: Altered mental status type: disorientation Qualified Code(s): R41.0 - Disorientation, unspecified Is this a current diagnosis for this admission?: Yes (2) Dehydration Is this a current diagnosis for this admission?: Yes (3) Diabetes Qualifiers: Diabetes mellitus type: type 2 Diabetes mellitus complication status: without complication Diabetes mellitus web services professional insulin use: without detention use Qualified Code(s): E11.9 - Type 2 diabetes mellitus without complications Is this a current diagnosis for this admission?: Yes (4) Hypertensive urgency Is this a current diagnosis for this admission?: Yes - Plan Summary Plan Summary: Continue current management for hypertension. Awaiting disposition.
--- NOTE | 2017-06-02 10:37 | PDOC PROGRESS REPORT ---
Subjective Progress Note for:: 06/02/17 Subjective:: 61-year-old female with dementia who was found wandering outside and brought in by her [id number] She was admitted to the hospital with acute encephalopathy due to dehydration as well as a hypertensive urgency. She is doing better now and is awaiting disposition to a residential facility. Is doing well. No complaints at present. Reason For Visit: ALTERED MENTAL STATUS,HYPERNATREMIA Physical Exam Vital Signs: Temp Pulse Resp BP Pulse Ox 98.3 F 74 18 143/62 H 100 06/02/17 07:47 06/02/17 07:47 06/02/17 07:47 06/02/17 07:47 06/02/17 07:47 Intake & Output 06/01/17 06/02/17 06/03/17 06:59 06:59 06:59 Intake Total 950 673 Balance 950 673 Weight 60.07 kg 61.3 kg Results Laboratory Results: 05/29/17 04:40 06/01/17 05:00 05/25/17 05/25/17 12:20 18:50 Troponin I < 0.012 < 0.012 Impressions: Head CT 05/25/17 09:31 IMPRESSION: NO SIGNIFICANT INTERVAL CHANGE. EVIDENCE OF ACUTE STROKE: NO. Thyroid Ultrasound 05/29/17 00:00 IMPRESSION: Small thyroid nodules without dominant or suspicious lesion as above. Assessment & Plan - Diagnosis (1) Altered mental status, unspecified Qualifiers: Altered mental status type: disorientation Qualified Code(s): R41.0 - Disorientation, unspecified Is this a current diagnosis for this admission?: Yes (2) Dehydration Is this a current diagnosis for this admission?: Yes (3) Diabetes Qualifiers: Diabetes mellitus type: type 2 Diabetes mellitus complication status: without complication Diabetes mellitus collision technician insulin use: without fci use Qualified Code(s): E11.9 - Type 2 diabetes mellitus without complications Is this a current diagnosis for this admission?: Yes (4) Hypertensive urgency Is this a current diagnosis for this admission?: Yes - Time Time Spent with patient: Less than 15 minutes - Plan Summary Plan Summary: Continue current management for hypertension. Currently awaiting placement.
[2017-06-03] MEDS: BUSPIRONE HCL 10 MG TABLET PO SCH (08:15)
[2017-06-03] MEDS: LISINOPRIL 10 MG TABLET PO SCH (09:40)
[2017-06-03] MEDS: AMLODIPINE BESYLATE 10 MG TABLET PO SCH (09:41)
[2017-06-03] MEDS: DIVALPROEX SODIUM 250 MG TABLET.DR PO SCH ×2 (09:42→17:49)
[2017-06-03] MEDS: METFORMIN HCL 500 MG TABLET PO SCH (15:55)
--- NOTE | 2017-06-03 16:38 | PDOC PROGRESS REPORT ---
Subjective Progress Note for:: 06/03/17 Subjective:: 61-year-old female with dementia who was found wandering outside and brought in by her [id number] She was admitted to the hospital with acute encephalopathy due to dehydration as well as a hypertensive urgency. She is doing better now and is awaiting disposition to a [place] [facility] facility. Sitting comfortably in her chair. She is pleasant and confused. Reason For Visit: ALTERED MENTAL STATUS,HYPERNATREMIA Physical Exam Vital Signs: Temp Pulse Resp BP Pulse Ox 98.2 F 58 L 17 142/54 H 100 06/03/17 11:20 06/03/17 11:20 06/03/17 11:20 06/03/17 11:20 06/03/17 11:20 Intake & Output 06/02/17 06/03/17 06/04/17 06:59 06:59 06:59 Intake Total 673 1375 Balance 673 1375 Weight 61.3 kg 61.7 kg General appearance: PRESENT: no acute distress Respiratory exam: PRESENT: clear to auscultation oneil, unlabored Cardiovascular exam: PRESENT: RRR GI/Abdominal exam: PRESENT: normal bowel sounds. ABSENT: tenderness Results Laboratory Results: 05/29/17 04:40 06/01/17 05:00 05/25/17 05/25/17 12:20 18:50 Troponin I < 0.012 < 0.012 Impressions: Head CT 05/25/17 09:31 IMPRESSION: NO SIGNIFICANT INTERVAL CHANGE. EVIDENCE OF ACUTE STROKE: NO. Thyroid Ultrasound 05/29/17 00:00 IMPRESSION: Small thyroid nodules without dominant or suspicious lesion as above. 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 Currently awaiting placement.
[2017-06-04 06:01] LABS: ABSOLUTE BASOPHILS # (AUTO) 0.1 10^3/uL (0.0-0.2); ABSOLUTE EOSINOPHILS # (AUTO) 0.3 10^3/uL (0.0-0.6); ABSOLUTE LYMPHOCYTES (AUTO) 2.3 10^3/uL (0.5-4.7); ABSOLUTE MONOCYTES (AUTO) 0.5 10^3/uL (0.1-1.4); ABSOLUTE NEUT (AUTO) 2.3 10^3/uL (1.7-8.2); BASOPHILS % (AUTO) 0.9 % (0-2); EOSINOPHILS % (AUTO) 5.3 % (0-6); HEMATOCRIT 33.5 % (36.0-47.0); HEMOGLOBIN 11.2 g/dL (12.0-15.5); LYMPHOCYTES % (AUTO) 42.7 % (13-45); MEAN CORPUSCULAR HEMOGLOBIN 31.5 pg (27.0-33.4); MEAN CORPUSCULAR HGB CONC 33.5 g/dL (32.0-36.0); MEAN CORPUSCULAR VOLUME 94 fl (80-97); MONOCYTES % (AUTO) 8.7 % (3-13); PLATELET COUNT 288 10^3/uL (150-450); RED BLOOD COUNT 3.56 10^6/uL (3.72-5.28); RED CELL DISTRIBUTION WIDTH 12.8 % (11.5-14.0); SEGMENTED NEUTROPHILS % (AUTO) 42.4 % (42-78); TOTAL CELLS COUNTED % (AUTO) 100 %; WHITE BLOOD COUNT 5.4 10^3/uL (4.0-10.5)
[2017-06-04 06:23] LABS: ALANINE AMINOTRANSFERASE 31 U/L (9-52); ALBUMIN 3.7 g/dL (3.5-5.0); ALKALINE PHOSPHATASE 42 U/L (38-126); ASPARTATE AMINO TRANSFERASE 22 U/L (14-36); BILIRUBIN,DIRECT 0.2 mg/dL (0.0-0.4); BILIRUBIN,TOTAL 0.3 mg/dL (0.2-1.3); BLOOD UREA NITROGEN 21 mg/dL (7-20); CARBON DIOXIDE 28 mmol/L (22-30); CHLORIDE 105 mmol/L (98-107); GLUCOSE 142 mg/dL (75-110); MAGNESIUM 1.9 mg/dL (1.6-2.3); POTASSIUM 4.7 mmol/L (3.6-5.0); TOTAL PROTEIN 6.8 g/dL (6.3-8.2)
[2017-06-04 06:35] LABS: ANION GAP 7 (5-19); SODIUM 139.7 mmol/L (137-145)
[2017-06-04] MEDS: METFORMIN HCL 500 MG TABLET PO SCH ×2 (08:51→17:02)
[2017-06-04] MEDS: BUSPIRONE HCL 10 MG TABLET PO SCH (08:51)
[2017-06-04] MEDS: LISINOPRIL 10 MG TABLET PO SCH (09:59)
[2017-06-04] MEDS: AMLODIPINE BESYLATE 10 MG TABLET PO SCH (09:59)
[2017-06-04] MEDS: DIVALPROEX SODIUM 250 MG TABLET.DR PO SCH ×2 (10:00→17:02)
[2017-06-04] MEDS: CETIRIZINE 10 MG TABLET PO SCH (10:00)
[2017-06-04] MEDS: FLUTICASONE NASAL SPRAY 50 MCG/SPRY 120 SPRAY/16 GM NASL SCH (10:00)
--- NOTE | 2017-06-04 18:43 | PDOC PROGRESS REPORT ---
Subjective Progress Note for:: 06/04/17 Subjective:: Patient states that she wants to go home. Nursing states that patient had been very confused however this morning patient is alert and oriented to person place and time. During my encounter patient answer questions appropriately. Spoke with case management to discuss patient's discharge plans. Patient denied any nausea vomiting or chest pain. Reason For Visit: ALTERED MENTAL STATUS,HYPERNATREMIA Physical Exam Vital Signs: Temp Pulse Resp BP Pulse Ox 98.2 F 63 16 147/53 H 100 06/04/17 14:54 06/04/17 14:54 06/04/17 14:54 06/04/17 14:54 06/04/17 14:54 Intake & Output 06/03/17 06/04/17 06/05/17 06:59 06:59 06:59 Intake Total 1375 1897 946 Balance 1375 1897 946 Weight 61.7 kg 63.6 kg General appearance: PRESENT: no acute distress, well-developed, well-nourished, other - Sitting in chair Head exam: PRESENT: atraumatic, normocephalic Eye exam: PRESENT: conjunctiva pink, EOMI. ABSENT: scleral icterus Ear exam: PRESENT: normal external ear exam Mouth exam: PRESENT: moist, tongue midline Neck exam: ABSENT: carotid bruit, JVD, lymphadenopathy, thyromegaly Respiratory exam: PRESENT: clear to auscultation oneil. ABSENT: rales, rhonchi, wheezes Cardiovascular exam: PRESENT: RRR. ABSENT: diastolic murmur, rubs, systolic murmur Pulses: PRESENT: normal dorsalis pedis pul Vascular exam: PRESENT: normal capillary refill GI/Abdominal exam: PRESENT: normal bowel sounds, soft. ABSENT: distended, guarding, mass, organolmegaly, rebound, tenderness Rectal exam: PRESENT: deferred Extremities exam: PRESENT: full ROM. ABSENT: calf tenderness, clubbing, pedal edema Neurological exam: PRESENT: alert, awake, oriented to person, oriented to place , oriented to time, oriented to situation, CN II-XII grossly intact. ABSENT: motor sensory deficit Psychiatric exam: PRESENT: appropriate affect, normal mood. ABSENT: homicidal ideation, suicidal ideation Skin exam: PRESENT: dry, intact, warm. ABSENT: cyanosis, rash Results Laboratory Results: 06/04/17 05:17 06/04/17 05:17 06/04/17 06/04/17 05:17 05:17 WBC 5.4 RBC 3.56 L Hgb 11.2 L Hct 33.5 L MCV 94 MCH 31.5 MCHC 33.5 RDW 12.8 Plt Count 288 Seg Neutrophils % 42.4 Lymphocytes % 42.7 Monocytes % 8.7 Eosinophils % 5.3 Basophils % 0.9 Absolute Neutrophils 2.3 Absolute Lymphocytes 2.3 Absolute Monocytes 0.5 Absolute Eosinophils 0.3 Absolute Basophils 0.1 Sodium 139.7 Potassium 4.7 Chloride 105 Carbon Dioxide 28 Anion Gap 7 BUN 21 H Creatinine 0.76 Est GFR ( Amer) > 60 Est GFR (Non-Af Amer) > 60 Glucose 142 H Calcium 10.0 Phosphorus 4.0 Magnesium 1.9 Total Bilirubin 0.3 AST 22 ALT 31 Alkaline Phosphatase 42 Total Protein 6.8 Albumin 3.7 05/25/17 05/25/17 12:20 18:50 Troponin I < 0.012 < 0.012 Impressions: Head CT 05/25/17 09:31 IMPRESSION: NO SIGNIFICANT INTERVAL CHANGE. EVIDENCE OF ACUTE STROKE: NO. Thyroid Ultrasound 05/29/17 00:00 IMPRESSION: Small thyroid nodules without dominant or suspicious lesion as above. Assessment & Plan - Diagnosis (1) Altered mental status, unspecified Qualifiers: Altered mental status type: disorientation Qualified Code(s): R41.0 - Disorientation, unspecified Is this a current diagnosis for this admission?: Yes Plan: Patient appears to be at baseline. During my encounter patient was alert and oriented to person place and time. Will ask for mental health to evaluate patient. (2) Dehydration Is this a current diagnosis for this admission?: Yes Plan: Resolved (3) Diabetes Qualifiers: Diabetes mellitus type: type 2 Diabetes mellitus complication status: without complication Diabetes mellitus usp insulin use: without usp use Qualified Code(s): E11.9 - Type 2 diabetes mellitus without complications Is this a current diagnosis for this admission?: Yes Plan: We will continue current treatment plan. (4) Hypertensive urgency Is this a current diagnosis for this admission?: Yes Plan: Blood pressures under good control will continue to monitor will not change regimen. (5) Acute delirium Is this a current diagnosis for this admission?: Yes Plan: Patient was alert and oriented during my encounter will have mental health evaluate patient. - Time Time Spent with patient: 15-24 minutes Anticipated discharge: Home with Homehealth - Have mental health evaluate patient if they have the same findings we will discharge patient home with home health. This has been discussed with case management.
--- NOTE | 2017-06-04 22:20 | Progress Note ---
Provider Note Provider Note: Psychiatric Report: Review of Patient's chart reveals a previous psychiatric consultation on May 25, 2017 which indicated the Patient has a history a dementia, a brain tumor that did not reportedly require surgical intervention, and diabtetes. Additionally, the Patient has an identified Power of Organizational Psychologist who is capable of making decisions on behalf of the Patient once the POA is implemented by the attending physician or a physician responsible for the Patient's care and treatment. At time of initial psychiatric evaluation, medication recommendations were made for low dosage of depakote and buspar to stabilize the Patient's mood and irritability, and appear to have been effective in this manner. Patient appears to be better oriented and more alert and able to engage in conversation more appropriately. Review of discharge planning notes suggest the POA would like the Patient to admit to [facility] for long-term placement. However, given the Patient's stabilization, a recommendation for discharge home with home health services is being considered. The concern for this Patient is her previously diagnosed dementia with head CT results demonstrating encephalomalacia near the right enlarged ventricle and right occipital horn. Given that Dementia is a neurodegenerative disease and the Patient has ongoing problems with her diabetes and other medical problems, coupled with living alone, it is felt that home health will not be able to provide enough supervision for Patient's medication compliance, compliance with diet, and supervision of her neurological processes. Individuals with dementia and concomitant health problems are at higher risk for frequent re- hospitalization due to exacerbation of medical problems because of lack of attention to proper diet, exercise, grooming, and bathing. At this time, placement with 24-hour supervision and consistent structure is recommended to ensure proper care and medical treatment of this Patient. If home health can provide waking hour supervision (18 hours per day), then discharge home with those services in place would be appropriate. However, Patient's ability to ambulate and engage in activities of daily living should be considered, and at the time of evaluation, her capacity to engage physically and safely in caring for self is felt to be compromised. Thank you for this kind referral. If there are questions regarding these recommendations, please do not hesitate to contact the Behavioral Health Office at [phone].
[2017-06-05 06:23] LABS: ABSOLUTE EOSINOPHILS # (AUTO) 0.3 10^3/uL (0.0-0.6); ABSOLUTE LYMPHOCYTES (AUTO) 2.5 10^3/uL (0.5-4.7); ABSOLUTE MONOCYTES (AUTO) 0.4 10^3/uL (0.1-1.4); ABSOLUTE NEUT (AUTO) 2.1 10^3/uL (1.7-8.2); BASOPHILS % (AUTO) 0.9 % (0-2); EOSINOPHILS % (AUTO) 5.2 % (0-6); HEMATOCRIT 33.7 % (36.0-47.0); HEMOGLOBIN 11.3 g/dL (12.0-15.5); LYMPHOCYTES % (AUTO) 46.8 % (13-45); MEAN CORPUSCULAR HEMOGLOBIN 31.7 pg (27.0-33.4); MEAN CORPUSCULAR HGB CONC 33.4 g/dL (32.0-36.0); MEAN CORPUSCULAR VOLUME 95 fl (80-97); MONOCYTES % (AUTO) 8.1 % (3-13); PLATELET COUNT 268 10^3/uL (150-450); RED BLOOD COUNT 3.55 10^6/uL (3.72-5.28); RED CELL DISTRIBUTION WIDTH 12.6 % (11.5-14.0); TOTAL CELLS COUNTED % (AUTO) 100 %; WHITE BLOOD COUNT 5.4 10^3/uL (4.0-10.5)
[2017-06-05 06:41] LABS: ANION GAP 10 (5-19); BLOOD UREA NITROGEN 31 mg/dL (7-20); CALCIUM 10.3 mg/dL (8.4-10.2); CARBON DIOXIDE 27 mmol/L (22-30); CHLORIDE 106 mmol/L (98-107); GLUCOSE 117 mg/dL (75-110); POTASSIUM 5.1 mmol/L (3.6-5.0); SODIUM 142.6 mmol/L (137-145)
[2017-06-05] MEDS: BUSPIRONE HCL 10 MG TABLET PO SCH (10:17)
[2017-06-05] MEDS: METFORMIN HCL 500 MG TABLET PO SCH (10:17)
[2017-06-05] MEDS: AMLODIPINE BESYLATE 10 MG TABLET PO SCH (10:18)
[2017-06-05] MEDS: CETIRIZINE 10 MG TABLET PO SCH (10:19)
[2017-06-05] MEDS: DIVALPROEX SODIUM 250 MG TABLET.DR PO SCH (10:19)
[2017-06-05] MEDS: LISINOPRIL 10 MG TABLET PO SCH (10:19)
[2017-06-05] MEDS: FLUTICASONE NASAL SPRAY 50 MCG/SPRY 120 SPRAY/16 GM NASL SCH (10:20)
--- NOTE | 2017-06-05 13:01 | PDOC DISCHARGE SUMMARY ---
General - Admit/Disc Date/PCP Admission Date/Primary Care Provider: 05/25/17 11:43 KARI MYRICK MD Discharge Date: 06/05/17 - Discharge Diagnosis (1) Altered mental status, unspecified Is this a current diagnosis for this admission?: Yes Summary: Secondary to hypertensive urgency in setting of mild to moderate dementia: Resolved. (2) Dehydration Is this a current diagnosis for this admission?: Yes Summary: Resolved (3) Diabetes Is this a current diagnosis for this admission?: Yes Summary: We will continue patient on home medication. Hemoglobin A1c of 5.7 (4) Hypertensive urgency Is this a current diagnosis for this admission?: Yes Summary: We will continue current regimen of lisinopril, clonidine, and Norvasc. (5) Acute delirium Is this a current diagnosis for this admission?: Yes Summary: In setting of dementia complicated by hypertensive urgency: Resolved - Additional Information Discharge Diet: Diabetic Discharge Activity: Activity As Tolerated Prescriptions: Buspirone HCl [Buspar 10 mg Tablet] 5 mg PO QAM #30 tablet Clonidine HCl [Catapres 0.1 mg Tablet] 0.1 mg PO Q12HP PRN #60 tablet PRN Reason: Lisinopril [Prinivil 10 mg Tablet] 20 mg PO DAILY #30 tablet Home Medications: Metformin HCl [Glucophage 500 mg Tablet] 500 mg PO BIDACBS #60 tablet 08/24/15 Amlodipine Besylate/Benazepril [Amlodipine-Benazepril 5-20 mg] 1 tab PO DAILY Cetirizine HCl [Zyrtec 10 mg Tablet] 10 mg PO DAILY 05/25/17 Fluticasone Propionate [Flonase Nasal Goodridge 50 Mcg/[place]ridge 16 gm] 2 sprays NASL DAILY 05/25/17 Buspirone HCl [Buspar 10 mg Tablet] 5 mg PO QAM #30 tablet 06/05/17 Clonidine HCl [Catapres 0.1 mg Tablet] 0.1 mg PO Q12HP PRN #60 tablet 06/05/17 Lisinopril [Prinivil 10 mg Tablet] 20 mg PO DAILY #30 tablet 06/05/17 History of Present Illness Patient complains of: Patient was found outside walking up and down the street disoriented. History of Present Illness: SIRENA ZHAO is a 61 year old female since after being found outside walking up and down the street disoriented. When patient was admitted patient was found to have hypertensive urgency. Hospital Course Hospital Course: Patient 59-year-old female that was admitted to our facility after found wandering down the street disoriented. When patient arrived to hospital patient was found to be in hypertensive urgency. Patient was placed on medication to help control blood pressure. Patient was also noted to be dehydrated and was given IV fluids for volume expansion. Patient was noted to have most likely mild to moderate dementia and at time of presentation patient was not oriented to time or location. However throughout hospitalization patient's mentation improved. At time of discharge patient was alert to person place and time. Patient was seen by mental health who later seen patient again I recommended that patient would require supervision and home health. Patient does live with her brother who is able to monitor patient and will have home health arranged. Patient also refused to go to group home. Physical Exam Vital Signs: Temp Pulse Resp BP Pulse Ox 98.5 F 75 12 132/77 H 95 06/05/17 08:00 06/05/17 08:00 06/05/17 08:00 06/05/17 08:00 06/05/17 08:00 Intake & Output 06/04/17 06/05/17 06/06/17 06:59 06:59 06:59 Intake Total 1897 1286 Balance 1897 1286 Weight 63.6 kg 62.8 kg General appearance: PRESENT: no acute distress, well-developed, well-nourished Head exam: PRESENT: atraumatic, normocephalic Eye exam: PRESENT: conjunctiva pink, EOMI. ABSENT: scleral icterus Ear exam: PRESENT: normal external ear exam Mouth exam: PRESENT: moist, tongue midline Neck exam: ABSENT: carotid bruit, JVD, lymphadenopathy, thyromegaly Respiratory exam: PRESENT: clear to auscultation oneil. ABSENT: rales, rhonchi, wheezes Cardiovascular exam: PRESENT: RRR. ABSENT: diastolic murmur, rubs, systolic murmur Pulses: PRESENT: normal dorsalis pedis pul Vascular exam: PRESENT: normal capillary refill GI/Abdominal exam: PRESENT: normal bowel sounds, soft. ABSENT: distended, guarding, mass, organolmegaly, rebound, tenderness Rectal exam: PRESENT: deferred Extremities exam: PRESENT: full ROM. ABSENT: calf tenderness, clubbing, pedal edema Musculoskeletal exam: PRESENT: full ROM Neurological exam: PRESENT: alert, awake, oriented to person, oriented to place , oriented to time, oriented to situation, CN II-XII grossly intact. ABSENT: motor sensory deficit Psychiatric exam: PRESENT: appropriate affect, normal mood. ABSENT: homicidal ideation, suicidal ideation Skin exam: PRESENT: dry, intact, warm. ABSENT: cyanosis, rash Results Laboratory Results: 06/05/17 05:27 06/05/17 05:27 06/05/17 06/05/17 05:27 05:27 WBC 5.4 RBC 3.55 L Hgb 11.3 L Hct 33.7 L MCV 95 MCH 31.7 MCHC 33.4 RDW 12.6 Plt Count 268 Seg Neutrophils % 39.0 L Lymphocytes % 46.8 H Monocytes % 8.1 Eosinophils % 5.2 Basophils % 0.9 Absolute Neutrophils 2.1 Absolute Lymphocytes 2.5 Absolute Monocytes 0.4 Absolute Eosinophils 0.3 Absolute Basophils 0.0 Sodium 142.6 Potassium 5.1 H Chloride 106 Carbon Dioxide 27 Anion Gap 10 BUN 31 H Creatinine 0.99 Est GFR ( Amer) > 60 Est GFR (Non-Af Amer) 57 L Glucose 117 H Calcium 10.3 H 05/25/17 05/25/17 12:20 18:50 Troponin I < 0.012 < 0.012 Impressions: Head CT 05/25/17 09:31 IMPRESSION: NO SIGNIFICANT INTERVAL CHANGE. EVIDENCE OF ACUTE STROKE: NO. Thyroid Ultrasound 05/29/17 00:00 IMPRESSION: Small thyroid nodules without dominant or suspicious lesion as above. Plan Time Spent: Greater than 30 Minutes
[2017-06-05 17:16] VITALS: BP 144/60
== END 2017-06-05 17:00 | disposition home health service (06) | DRG 305 ==
LOC: ER 08:40 → OBSVTOIN 11:43 → EH 11:43 → INTOOBSV 11:43 → 3S 23:04 → 4W 05-28 17:35
PROVIDERS: ADMIT Emergency Medicine; ATTEND Emergency Medicine
DX: I16.0 Hypertensive urgency (principal); F05 Delirium due to known physiological condition; E87.0 Hyperosmolality and hypernatremia; F03.90 Unspecified dementia, unspecified severity, without behavioral disturbance, psychotic disturbance, mood disturbance, and anxiety; E86.0 Dehydration; E11.9 Type 2 diabetes mellitus without complications; I10 Essential (primary) hypertension; E83.42 Hypomagnesemia; E83.52 Hypercalcemia; D64.9 Anemia, unspecified; E04.2 Nontoxic multinodular goiter; Z60.2 Problems related to living alone; Z79.899 Other long term (current) drug therapy; Z86.73 Personal history of transient ischemic attack (TIA), and cerebral infarction without residual deficits; Z88.0 Allergy status to penicillin
CPT/HCPCS: 36415; 70450; 76536; 80048; 80053; 81001; 82140; 82607; 82962; 83036; 83735; 83970; 84100; 84443; 84484; 85025; 85610; 87086; 93005; 93010; 96360; 96361; 99285; G0378; G8978-GP; G8979-GP; J1630; J3475; J3486; J3490; J7030

== ENCOUNTER 2018-04-24 09:00 | Inpatient (IN) | payer MEDICAID ==
[2018-04-24 09:44] LABS: ABSOLUTE LYMPHOCYTES (AUTO) 1.3 10^3/uL (0.5-4.7); ABSOLUTE MONOCYTES (AUTO) 0.7 10^3/uL (0.1-1.4); ABSOLUTE NEUT (AUTO) 6.9 10^3/uL (1.7-8.2); BASOPHILS % (AUTO) 0.3 % (0-2); EOSINOPHILS % (AUTO) 0.1 % (0-6); HEMATOCRIT 37.5 % (36.0-47.0); HEMOGLOBIN 12.8 g/dL (12.0-15.5); LYMPHOCYTES % (AUTO) 15.1 % (13-45); MEAN CORPUSCULAR HEMOGLOBIN 31.7 pg (27.0-33.4); MEAN CORPUSCULAR HGB CONC 34.1 g/dL (32.0-36.0); MEAN CORPUSCULAR VOLUME 93 fl (80-97); MONOCYTES % (AUTO) 7.4 % (3-13); PLATELET COUNT 314 10^3/uL (150-450); RED BLOOD COUNT 4.04 10^6/uL (3.72-5.28); RED CELL DISTRIBUTION WIDTH 12.9 % (11.5-14.0); SEGMENTED NEUTROPHILS % (AUTO) 77.1 % (42-78); TOTAL CELLS COUNTED % (AUTO) 100 %
[2018-04-24 09:53] LABS: APPEARANCE,URINE CLOUDY; BILIRUBIN,URINE NEGATIVE (NEGATIVE); COLOR,URINE AMBER; GLUCOSE, URINE NEGATIVE (NEGATIVE); KETONES,URINE TRACE mg/dL (NEGATIVE); LEUKOCYTE ESTERASE,URINE NEGATIVE (NEGATIVE); NITRITE,URINE NEGATIVE (NEGATIVE); PROTEIN,URINE >=500 mg/dL (NEGATIVE); UROBILINOGEN,URINE NEGATIVE mg/dL (<2.0)
[2018-04-24 10:08] LABS: ALANINE AMINOTRANSFERASE 35 U/L (9-52); ALBUMIN 4.7 g/dL (3.5-5.0); ALKALINE PHOSPHATASE 53 U/L (38-126); ANION GAP 15 (5-19); ASPARTATE AMINO TRANSFERASE 145 U/L (14-36); BILIRUBIN,DIRECT 0.6 mg/dL (0.0-0.4); BILIRUBIN,TOTAL 0.9 mg/dL (0.2-1.3); BLOOD UREA NITROGEN 39 mg/dL (7-20); CARBON DIOXIDE 22 mmol/L (22-30); CHLORIDE 108 mmol/L (98-107); GLUCOSE 183 mg/dL (75-110); POTASSIUM 3.9 mmol/L (3.6-5.0); SODIUM 144.9 mmol/L (137-145); TOTAL PROTEIN 8.8 g/dL (6.3-8.2)
[2018-04-24 10:12] LABS: ALCOHOL < 10 mg/dL (NONE DETECTED)
[2018-04-24 10:13] LABS: URINE AMPHETAMINES SCREEN NEGATIVE; URINE BARBITURATES SCREEN NEGATIVE; URINE BENZODIAZEPINES SCREEN NEGATIVE; URINE COCAINE SCREEN NEGATIVE; URINE MARIJUANA (THC) SCREEN NEGATIVE; URINE METHADONE SCREEN NEGATIVE; URINE PHENCYCLIDINE SCREEN NEGATIVE
[2018-04-24] MEDS ORDERED: NORMAL SALINE 500 ML IV PRN (10:17)
[2018-04-24 10:54] LABS: CREATINE KINASE MB 16.7 ng/mL (<4.55)
--- NOTE | 2018-04-24 11:01 | RADIOLOGY REPORT (SQ) ---
EXAM DESCRIPTION: CT HEAD WITHOUT COMPLETED DATE/TIME: 04/24/2018 10:51 am REASON FOR STUDY: AMS COMPARISON: 05/25/2017 TECHNIQUE: Axial images acquired through the brain without intravenous contrast. Images reviewed wi th bone, brain and subdural windows. Additional sagittal and coronal reconstructions were generated. Images stored on PACS. All CT scanners at this facility use dose modulation, iterative reconstruction, and/or weight based d osing when appropriate to reduce radiation dose to as low as reasonably achievable (ALARA). [facility]: Dose Right [facility]: CareDose [facility]: Dose Right [facility]: Teradose 4D [facility]: [employer]) RADIATION DOSE: CT Rad equipment meets quality standard of care and radiation dose reduction techniq ues were employed. CTDIvol: 48.6 mGy. DLP: 877 mGy-cm.mGy. LIMITATIONS: None. FINDINGS: VENTRICLES: Prominent. CEREBRUM: No masses. No hemorrhage. No midline shift. Old right occipital infarct. Areas of low d ensity in the white matter most likely due to chronic micro-vascular ischemic change. No evidence fo r acute infarction. CEREBELLUM: No masses. No hemorrhage. No alteration of density. No evidence for acute infarction. EXTRAAXIAL SPACES: Age-related involutional change. No fluid collections. No masses. ORBITS AND GLOBE: No intra- or extraconal masses. Normal contour of globe without masses. CALVARIUM: No fracture. PARANASAL SINUSES: No fluid or mucosal thickening. SOFT TISSUES: No mass or hematoma. OTHER: No other significant finding. IMPRESSION: CHRONIC CHANGES OF ATROPHY AND MICROVASCULAR ISCHEMIA. NO ACUTE PROCESS. EVIDENCE OF ACUTE STROKE: NO. TECHNICAL DOCUMENTATION: JOB ID: [id number] Quality ID # [id number]: Final reports with documentation of one or more dose reduction techniques (e.g., Au tomated exposure control, adjustment of the mA and/or kV according to patient size, use of iterative reconstruction technique) 2010 [employer]- All Rights Reserved Reading location - IP/workstation name: [email or web address]
[2018-04-24 11:04] LABS: TROPONIN I 0.084 ng/mL
--- NOTE | 2018-04-24 11:32 | RADIOLOGY REPORT (SQ) ---
EXAM DESCRIPTION: CT ABD/PELVIS WITH IV ONLY COMPLETED DATE/TIME: 04/24/2018 11:13 am REASON FOR STUDY: elevated AST, generalized abd pain COMPARISON: None. TECHNIQUE: CT scan of the abdomen and pelvis performed using helical scanning technique with dynamic intravenous contrast injection. No oral contrast. Images reviewed with lung, soft tissue, and bone windows. Reconstructed coronal and sagittal MPR images reviewed. Delayed images for evaluation of the urinary system also acquired. All images stored on PACS. All CT scanners at this facility use dose modulation, iterative reconstruction, and/or weight based d osing when appropriate to reduce radiation dose to as low as reasonably achievable (ALARA). [facility]: Dose Right [facility]: CareDose [facility]: Dose Right [facility]: Teradose 4D [facility]: [employer] CONTRAST TYPE AND DOSE: contrast/concentration: Isovue 370.00 mg/ml; Total Contrast Delivered: 67.0 ml; Total Saline Delivered: 65.0 ml RENAL FUNCTION: Creatinine 0.39 RADIATION DOSE: CT Rad equipment meets quality standard of care and radiation dose reduction techniq ues were employed. CTDIvol: 5.4 - 6.4 mGy. DLP: 625 mGy-cm.. LIMITATIONS: None. FINDINGS: LOWER CHEST: No significant findings. No nodules or infiltrates. LIVER: Normal size. No masses. No dilated ducts. SPLEEN: Normal size. No focal lesions. PANCREAS: No masses. No significant calcifications. No adjacent inflammation or peripancreatic fluid collections. Pancreatic duct not dilated. GALLBLADDER: No identified stones by CT criteria. No inflammatory changes to suggest cholecystitis. ADRENAL GLANDS: No significant masses or asymmetry. RIGHT KIDNEY AND URETER: No solid masses. No significant calcifications. No hydronephrosis or hyd roureter. LEFT KIDNEY AND URETER: No solid masses. No significant calcifications. No hydronephrosis or hydr oureter. AORTA AND VESSELS: No aneurysm. No dissection. Renal arteries, SMA, celiac without stenosis. RETROPERITONEUM: No retroperitoneal adenopathy, hemorrhage or masses. BOWEL AND PERITONEAL CAVITY: No masses or inflammatory changes. No free fluid or peritoneal masses. APPENDIX: Normal. PELVIS: No mass. No free fluid. Normal bladder. ABDOMINAL WALL: No masses. No hernias. BONES: No significant or acute findings. OTHER: No other significant finding. IMPRESSION: NO SIGNIFICANT OR ACUTE FINDING IN THE ABDOMEN OR PELVIS ON CT SCAN WITH IV CONTRAST. TECHNICAL DOCUMENTATION: JOB ID: [id number] Quality ID # [id number]: Final reports with documentation of one or more dose reduction techniques (e.g., Au tomated exposure control, adjustment of the mA and/or kV according to patient size, use of iterative reconstruction technique) 2010 [employer]- All Rights Reserved Reading location - IP/workstation name: [email or web address]
--- NOTE | 2018-04-24 13:35 | ER Document Report ---
ED General - General Chief Complaint: Altered Mental Status Stated Complaint: CONFUSION Time Seen by Provider: 04/24/18 09:35 Mode of Arrival: Medic Information source: Patient TRAVEL OUTSIDE OF THE [place] IN LAST 30 DAYS: No - Related Data Allergies/Adverse Reactions: Penicillins Allergy (Severe, Verified 05/25/17 09:51) Hives Past Medical History - General Information source: Patient - Social History Smoking Status: Unknown if Ever Smoked Family History: Reviewed & Not Pertinent Patient has suicidal ideation: No Patient has homicidal ideation: No - Past Medical History Cardiac Medical History: Reports: Hx Hypertension Neurological Medical History: Reports: Hx Seizures Endocrine Medical History: Reports: Hx Diabetes Mellitus Type 2 Renal/ Medical History: Denies: Hx Peritoneal Dialysis Past Surgical History: Reports: Other - Brain surgery. Denies: Hx Pacemaker - Immunizations Hx Diphtheria, Pertussis, Tetanus Vaccination: No Review of Systems - Review of Systems Constitutional: See HPI EENT: No symptoms reported Cardiovascular: No symptoms reported Respiratory: No symptoms reported Gastrointestinal: No symptoms reported Genitourinary: No symptoms reported Female Genitourinary: No symptoms reported Musculoskeletal: No symptoms reported Skin: No symptoms reported Hematologic/Lymphatic: No symptoms reported Neurological/Psychological: See HPI Physical Exam - Vital signs Vitals: Temp Pulse Resp BP Pulse Ox 97.2 F 103 H 20 167/51 H 97 04/24/18 09:05 04/24/18 09:05 04/24/18 09:05 04/24/18 09:05 04/24/18 09:05 - Notes Notes: PHYSICAL EXAMINATION: GENERAL: Chronically ill-appearing malnourished and in no acute distress. HEAD: Atraumatic, normocephalic. EYES: Pupils equal round and reactive to light, extraocular movements intact, conjunctiva are normal. ENT: Nares patent, oropharynx clear without exudates. Moist mucous membranes. NECK: Normal range of motion, supple without lymphadenopathy LUNGS: Breath sounds clear to auscultation bilaterally and equal. No wheezes rales or rhonchi. HEART: Regular rate and rhythm without murmurs ABDOMEN: Soft,nondistended abdomen. No guarding, no rebound. No masses appreciated. Generalized abdominal pain no CVA tenderness Female : deferred Musculoskeletal: Normal range of motion, no pitting or edema. No cyanosis. NEUROLOGICAL: Cranial nerves grossly intact. Normal speech, normal gait. Normal sensory, motor exams. PERRLA, EOMI. Full motor and sensory function throughout. Tax Services Intern + 2 equal bilaterally in BUE. Tongue midline. No pronator drift.Neck with APROM. Raises eyebrows. Speaks in full sentences. No weakness on one side. PSYCH: Normal mood, anxious SKIN: Warm, Dry, normal turgor, no rashes or lesions noted. Course - Re-evaluation Re-evalutation: 04/24/18 16:10 62-year-old female afebrile, vitals stable in no acute distress comes for evaluation per EMS for confusion. Patient states that she was "getting exercise and wondered cafeteria because she was hungry" this morning however EMS states that they were called due to patient wandering around the school. Chest x-ray, CBC remarkable. Urinalysis negative leukocytosis however does show hematuria and proteinuria. CMP hepatic or renal dysfunction, no electrolyte disturbances. CK 4536, she is having rhabdomyolysis. Troponin x2 0.084. EKG negative for STEMI or acute elevations. CT abdomen pelvis with contrast CT head unremarkable. Heart score is 3 points, which is a low percentage for MACE with 0.9% to 1.7%. patient remains stable throughout duration of stay. Patient has remained alert to place but however is confused about person and time. Patient given IV fluids for rhabdomyolysis. Will admit to [facility] to medical service for IV hydration for rhabdomyolysis as well as observation for altered mental status. - Vital Signs Vital signs: Temp Pulse Resp BP Pulse Ox 97.2 F 103 H 17 166/73 H 99 04/24/18 09:05 04/24/18 09:05 04/24/18 12:00 04/24/18 09:16 04/24/18 12:00 - Laboratory Result Diagrams: 04/24/18 09:25 04/24/18 09:25 Laboratory results interpreted by me: 04/24/18 04/24/18 04/24/18 09:25 09:25 09:25 Chloride 108 H BUN 39 H Est GFR (Non-Af Amer) 55 L Glucose 183 H Direct Bilirubin 0.6 H AST 145 H Creatine Kinase 4536 H CK-MB (CK-2) Total Protein 8.8 H Urine Protein >=500 H Urine Ketones TRACE H Urine Blood LARGE H 04/24/18 09:25 Chloride BUN Est GFR (Non-Af Amer) Glucose Direct Bilirubin AST Creatine Kinase CK-MB (CK-2) 16.70 H Total Protein Urine Protein Urine Ketones Urine Blood Discharge - Discharge Clinical Impression: Rhabdomyolysis, Hypertension, Altered mental status Condition: Stable Disposition: ADMITTED INPATIENT Admitting Provider: Hospitalist - Pedro Pablo Lan NP Unit Admitted: IMCU Referrals: KARI MYRICK MD [Primary Care Provider] - Follow up as needed
[2018-04-24] MEDS ORDERED: NORMAL SALINE 1000 ML 1,000 ML IV PRN (15:58)
[2018-04-24] MEDS ORDERED: ACETAMINOPHEN 325 MG TABLET PO PRN (16:38)
[2018-04-24] MEDS ORDERED: HYDRALAZINE HCL INJ/PF 20 MG/1 ML SDV IV PRN (17:12)
--- NOTE | 2018-04-24 17:18 | PDOC H&P ---
History of Present Illness Admission Date/PCP: KARI MYRICK MD Patient complains of: Confusion History of Present Illness: SIRENA ZHAO is a 62 year old female with a past medical history of malignant hypertension, dementia, and previous admissions for acute encephalopathy. Upon presentation to the emergency department the patient was found afebrile, vitals stable in no acute distress comes for evaluation per EMS for confusion. Patient states that she was "getting exercise and wondered cafeteria because she was hungry" this morning however EMS states that they were called due to patient wandering around a school. Chest x-ray, CBC remarkable. Urinalysis negative leukocytosis however does show hematuria and proteinuria. CMP hepatic or renal dysfunction, no electrolyte disturbances. CK 4536, she is having rhabdomyolysis. Troponin x2 0.084. EKG negative for STEMI or acute elevations. CT abdomen pelvis with contrast CT head unremarkable. Heart score is 3 points, which is a low percentage for MACE with 0.9% to 1.7%. Patient has remained alert to place but however is confused about person and time. Patient given IV fluids for rhabdomyolysis. Will admit to [facility] to medical service for IV hydration for rhabdomyolysis as well as observation for altered mental status. Selected Entries 04/24/18 16:57 Pulse Rate 109 H Blood Pressure 178/92 H [Left Upper Arm 04/24/18 04/24/18 09:25 09:25 ALT 35 Creatine Kinase 4536 H Past Medical History Cardiac Medical History: Reports: Hypertension Neurological Medical History: Reports: Seizures, Other - 3 presentations with AMS Endocrine Medical History: Reports: Diabetes Mellitus Type 2 Past Surgical History Past Surgical History: Reports: Other - Brain surgery Denies: Pacemaker Social History Smoking Status: Unknown if Ever Smoked Frequency of Alcohol Use: None Hx Recreational Drug Use: No Drugs: None Hx Prescription Drug Abuse: No Family History Family History: None Family History: Unable to obtain Parental Family History Reviewed: No - Unable to obtain Children Family History Reviewed: NA - Does not have children Sibling(s) Family History Reviewed.: NA - Unable to obtain Medication/Allergy Home Medications: Clonidine HCl [Catapres 0.1 mg Tablet] 0.1 mg PO Q12 04/24/18 Ibuprofen [Motrin 800 mg Tablet] 800 mg PO Q12 04/24/18 Metformin HCl [Glucophage 500 mg Tablet] 500 mg PO BIDBS 04/24/18 Allergies/Adverse Reactions: Penicillins Allergy (Severe, Verified 04/26/18 09:22) Hives Physical Exam Vital Signs: Temp Pulse Resp BP Pulse Ox 97.2 F 103 H 20 179/64 H 97 04/24/18 09:05 04/24/18 15:34 04/24/18 15:34 04/24/18 15:34 04/24/18 15:34 Intake & Output 04/22/18 04/23/18 04/24/18 23:59 23:59 23:59 Intake Total 500 Balance 500 Weight 62 kg General appearance: PRESENT: no acute distress, well-developed, well-nourished Head exam: PRESENT: atraumatic, normocephalic Eye exam: PRESENT: conjunctiva pink, EOMI, PERRLA. ABSENT: scleral icterus Ear exam: PRESENT: normal external ear exam Mouth exam: PRESENT: moist, tongue midline Neck exam: ABSENT: carotid bruit, JVD, lymphadenopathy, thyromegaly Respiratory exam: PRESENT: clear to auscultation oneil. ABSENT: rales, rhonchi, wheezes Cardiovascular exam: PRESENT: RRR. ABSENT: diastolic murmur, rubs, systolic murmur Pulses: PRESENT: normal dorsalis pedis pul Vascular exam: PRESENT: normal capillary refill GI/Abdominal exam: PRESENT: normal bowel sounds, soft. ABSENT: distended, guarding, mass, organolmegaly, rebound, tenderness Rectal exam: PRESENT: deferred Extremities exam: PRESENT: full ROM. ABSENT: calf tenderness, clubbing, pedal edema Neurological exam: PRESENT: alert, awake, CN II-XII grossly intact. ABSENT: oriented to person, oriented to place, oriented to time, oriented to situation, motor sensory deficit Psychiatric exam: PRESENT: flat affect, normal mood, unusual affect. ABSENT: appropriate affect, homicidal ideation, suicidal ideation Skin exam: PRESENT: dry, intact, warm. ABSENT: cyanosis, rash Results Laboratory Results: 04/24/18 09:25 04/24/18 09:25 04/24/18 04/24/18 04/24/18 09:25 09:25 09:25 WBC 9.0 RBC 4.04 Hgb 12.8 Hct 37.5 MCV 93 MCH 31.7 MCHC 34.1 RDW 12.9 Plt Count 314 Seg Neutrophils % 77.1 Lymphocytes % 15.1 Monocytes % 7.4 Eosinophils % 0.1 Basophils % 0.3 Absolute Neutrophils 6.9 Absolute Lymphocytes 1.3 Absolute Monocytes 0.7 Absolute Eosinophils 0.0 Absolute Basophils 0.0 Sodium 144.9 Potassium 3.9 Chloride 108 H Carbon Dioxide 22 Anion Gap 15 BUN 39 H Creatinine 1.02 Est GFR ( Amer) > 60 Est GFR (Non-Af Amer) 55 L Glucose 183 H Calcium 10.0 Magnesium 1.7 Total Bilirubin 0.9 AST 145 H ALT 35 Alkaline Phosphatase 53 Total Protein 8.8 H Albumin 4.7 Lipase Urine Color AMELIE Urine Appearance CLOUDY Urine pH 5.0 Ur Specific Darwin 1.030 Urine Protein >=500 H Urine Glucose (UA) NEGATIVE Urine Ketones TRACE H Urine Blood LARGE H Urine Nitrite NEGATIVE Ur Leukocyte Esterase NEGATIVE Urine WBC (Auto) 5 Urine RBC (Auto) 4 04/24/18 09:25 WBC RBC Hgb Hct MCV MCH MCHC RDW Plt Count Seg Neutrophils % Lymphocytes % Monocytes % Eosinophils % Basophils % Absolute Neutrophils Absolute Lymphocytes Absolute Monocytes Absolute Eosinophils Absolute Basophils Sodium Potassium Chloride Carbon Dioxide Anion Gap BUN Creatinine Est GFR ( Amer) Est GFR (Non-Af Amer) Glucose Calcium Magnesium Total Bilirubin AST ALT Alkaline Phosphatase Total Protein Albumin Lipase 103.0 Urine Color Urine Appearance Urine pH Ur Specific Darwin Urine Protein Urine Glucose (UA) Urine Ketones Urine Blood Urine Nitrite Ur Leukocyte Esterase Urine WBC (Auto) Urine RBC (Auto) 04/24/18 04/24/18 04/24/18 09:25 09:25 12:19 Creatine Kinase 4536 H CK-MB (CK-2) 16.70 H Troponin I 0.084 0.084 04/24/18 15:08 Creatine Kinase CK-MB (CK-2) Troponin I Cancelled Impressions: Head CT 04/24/18 09:50 IMPRESSION: CHRONIC CHANGES OF ATROPHY AND MICROVASCULAR ISCHEMIA. NO ACUTE PROCESS. EVIDENCE OF ACUTE STROKE: NO. Abdomen/Pelvis CT 04/24/18 10:48 IMPRESSION: NO SIGNIFICANT OR ACUTE FINDING IN THE ABDOMEN OR PELVIS ON CT SCAN WITH IV CONTRAST. Assessment & Plan - Diagnosis (1) Rhabdomyolysis Qualifiers: Rhabdomyolysis type: non-traumatic Qualified Code(s): M62.82 - Rhabdomyolysis Is this a current diagnosis for this admission?: Yes Plan: Admit the patient and aggressively hydrate. Repeat CK in the a.m. Monitor chemistries and follow. She does have significant proteinuria (2) Acute metabolic encephalopathy Is this a current diagnosis for this admission?: Yes Plan: Given the patient's history of brain surgery will obtain a contrasted MRI. Additionally will add B12, TSH, PTH, ammonia complete metabolic workup. (3) Hypertension Qualifiers: Hypertension type: essential hypertension Qualified Code(s): I10 - Essential (primary) hypertension Is this a current diagnosis for this admission?: Yes Plan: Continue clonidine given the patient's odd behavior. Will transition him over to Procardia in an effort to prevent rebounding. Follow. (4) Diabetes mellitus type 2 in nonobese Is this a current diagnosis for this admission?: Yes Plan: Will obtain before meals at bedtime Accu-Cheks and hold metformin for now. Will add A1c. (5) Dementia Qualifiers: Dementia type: vascular dementia Dementia behavioral disturbance: with behavioral disturbance Qualified Code(s): F01.51 - Vascular dementia with behavioral disturbance Is this a current diagnosis for this admission?: Yes Plan: This is been a previous diagnosis. The patient does have significant microvascular ischemia on previous imaging. - Time Time Spent: 50 to 70 Minutes Medications reviewed and adjusted accordingly: Yes Anticipated discharge: Home Within: within 24 hours Disposition: The patient is a full code. Pending patient's symptomatology and diagnostic findings will reevaluate in the a.m. we will admit the patient to inpatient telemetry as the patient's expected length of stay should not surpass 2 midnights. - Inpatient Certification Based on my medical assessment, after consideration of the patient's comorbidities, presenting symptoms, or acuity I expect that the services needed warrant INPATIENT care.: Yes I certify that my determination is in accordance with my understanding of Medicare's requirements for reasonable and necessary INPATIENT services [42 CFR 412.3e].: Yes Medical Necessity: Failure to Improve With Outpatient Therapy, Need For IV Fluids, Need For Continuous Telemetry Monitoring Post Hospital Care: D/C or Transfer Summary
[2018-04-24] MEDS ORDERED: NIFEDIPINE 30 MG TAB.ER.24 PO ONE (17:30)
[2018-04-24] MEDS: ENOXAPARIN SODIUM INJ 40 MG/0.4 ML DISP.SYRIN SUBCUT SCH (21:24)
[2018-04-24] MEDS: NIFEDIPINE 30 MG TAB.ER.24 PO SCH (21:25)
[2018-04-24] MEDS: NORMAL SALINE 1000 ML 1,000 ML IV PRN (23:30)
[2018-04-25 06:30] LABS: ALANINE AMINOTRANSFERASE 45 U/L (9-52); ALBUMIN 3.6 g/dL (3.5-5.0); ALKALINE PHOSPHATASE 46 U/L (38-126); ANION GAP 11 (5-19); ASPARTATE AMINO TRANSFERASE 146 U/L (14-36); BILIRUBIN,DIRECT 0.3 mg/dL (0.0-0.4); BILIRUBIN,TOTAL 0.8 mg/dL (0.2-1.3); BLOOD UREA NITROGEN 21 mg/dL (7-20); CALCIUM 9.5 mg/dL (8.4-10.2); CARBON DIOXIDE 23 mmol/L (22-30); CHLORIDE 111 mmol/L (98-107); GLUCOSE 132 mg/dL (75-110); POTASSIUM 3.8 mmol/L (3.6-5.0); SODIUM 145.2 mmol/L (137-145); TOTAL PROTEIN 6.9 g/dL (6.3-8.2)
[2018-04-25 06:55] LABS: CREATINE KINASE 4998 U/L (30-135)
[2018-04-25 09:39] LABS: HEPATITIS A AB IGM Negative (Negative); HEPATITIS B CORE AB IGM Negative (Negative); HEPATITS B SURFACE ANTIGEN Negative (Negative)
[2018-04-25 10:36] LABS: HEPATITIS C VIRUS ANTIBODY <0.1 s/co ratio (0.0-0.9)
[2018-04-25] MEDS: NIFEDIPINE 30 MG TAB.ER.24 PO SCH (10:38)
[2018-04-25] MEDS: ENOXAPARIN SODIUM INJ 40 MG/0.4 ML DISP.SYRIN SUBCUT SCH (10:39)
[2018-04-25 11:32] VITALS: BP 164/57
[2018-04-25] MEDS: NORMAL SALINE 1000 ML 1,000 ML IV PRN (11:55)
--- NOTE | 2018-04-25 19:07 | PROGRESS NOTE E ---
Progress Note NAME: SIRENA ZHAO : 1955 AGE: 62Y DATE: 04/25/2018 ROOM: 401 SUBJECTIVE: The patient has been out of bed to the bathroom this morning. The patient's mental status is about the same as it was yesterday. The patient denies any nausea or vomiting. She is uncertain of exactly how she got to the hospital. The patient has been afebrile; blood pressure has been in good range and the patient does not voice any other concerns at this time. REVIEW OF SYSTEMS: Full review of systems cannot be appreciated, given the patient's mental status. MEDICATIONS: Medications have been reviewed. OBJECTIVE: GENERAL: The patient is a 62-year-old -Turkmen female who is awake, alert, and oriented to herself, but not time nor situation. She does not appear to be distressed. VITAL SIGNS: Temperature 98.3, pulse 102, respirations 18, blood pressure 154/74, oxygen saturation 100% on room air. SKIN: Warm and dry. No rashes, not diaphoretic. HEENT: Pupils are reactive. Conjunctivae pink. There is no evidence of JVP. CVS: Heart is regular. No rubs. CHEST: Clear, symmetrical. ABDOMEN: Soft, nontender. EXTREMITIES: No clubbing, cyanosis, or edema. PSYCHIATRIC: The patient has an odd affect. DIAGNOSTICS/LAB VALUES: Hematology obtained on 04/24/2018: WBC 9.0, hemoglobin 12.8, hematocrit 37.5, platelet count 314,000. Chemistry obtained on 04/25/2018: Sodium 145, potassium 4.8, chloride 111, carbon dioxide 23, BUN 21, creatinine 0.60, glucose 132, calcium 9.5, magnesium 1.6, bilirubin 0.8, AST 146, ALT 45, alkaline phosphatase 46, CK 4998. ASSESSMENT AND PLAN: 1. NONTRAUMATIC RHABDOMYOLYSIS. The patient does not have a recollection of fall. Therefore, will continue to hydrate the patient and repeat CK. Chemistries have improved. Will repeat urinalysis to determine where her proteinuria is. 2. ACUTE METABOLIC ENCEPHALOPATHY. I have a suspicion the patient has some underlying dementia. The patient has had brain surgery in the past. Will get a contrasted MRI. B12, TSH, PTH, ammonia were all unremarkable. 3. HYPERTENSION. Have discontinued clonidine, given the patient's odd behavior. She was transitioned over to Procardia and at this point in time does not appear to have rebounded. 4. DIABETES MELLITUS TYPE 1, nonobese. Will continue before meals and bedtime Accu-Cheks. Hold off on metformin. A1c is in acceptable range. 5. DEMENTIA. This has been a previous diagnosis. The patient has significant microvascular ischemia on previous imaging. DISPOSITION: The patient is a full code. Pending the patient's symptomatology and diagnostic findings, will reevaluate in the a.m. Time spent on this followup including assessment, plan, physical examination, patient education, and review of records is 25 minutes. DICTATING PHYSICIAN: YASMANI HERNANDEZ NP [id number] PHY#: [id number] ID: [id number] JOB#: [id number] ACCT: [id number] cc: >
--- NOTE | 2018-04-27 08:52 | DISCHARGE SUMMARY E ---
ELOPEMENT SUMMARY NAME: SIRENA ZHAO : 1955 AGE: 62Y ADMITTED: 04/24/2018 DISCHARGED: 04/25/2018 ELOPEMENT SUMMARY CODE STATUS: Full code. PRIMARY CARE PROVIDER: Cedrick Coffey MD DIAGNOSES: Working diagnoses at the time the patient eloped include: 1. Nontraumatic rhabdomyolysis. 2. Acute metabolic encephalopathy. 3. Vascular dementia. 4. Hypertension. 5. Diabetes mellitus type 2 in the nonobese. MEDICATIONS: Home mediations at the time the patient left include: 1. Catapres 0.1 mg p.o. q. 12 hours. 2. Motrin 800 mg p.o. q. 12 hours. 3. Glucophage 500 mg p.o. b.i.d. RECOMMENDED DIET: Heart healthy. RECOMMENDED ACTIVITY: As tolerated. CONDITION: Fair. VITAL SIGNS: Last vital signs include temperature of 98.3, pulse 93, respiration 20, blood pressure is 164/57, oxygen saturation 100% on room air. DIAGNOSTICS: Lab values are as follows: Hematology obtained on 04/24/2018: WBC is 9.0, hemoglobin is 12.8, hematocrit is 37.5, platelet count is 314,000. Chemistry obtained on 04/25/2018: Sodium is 145, potassium 4.8, chloride is 111, carbon dioxide 23, BUN 21, creatinine 0.60, glucose 132, calcium is 9.5, magnesium is 1.6, bilirubin 0.8, AST 146, ALT is 45, alk phos 46. Ammonia is 13.5. CK is 4998. Total protein 6.9, albumin 3.7. PTH is 51.5. Urinalysis obtained on 04/24/2018: Color kwaku, appearance cloudy, pH 5.0, specific gravity is 1.030, protein greater than 500, glucose negative, ketones trace, occult blood large, nitrite negative, BILI negative, urobilinogen is negative, leukocyte esterase is negative, WBCs 5, RBCs 4, casts 26, epithelial squamous cells 1, mucous many. Toxicology obtained on 04/24/2018 is latham negative. Serum alcohol is negative. Serologies: RPR is nonreactive. Hepatitis panel is all negative. Head CT obtained on 04/24/2018 reveals chronic changes of atrophy and microvascular ischemia. No acute process. CT of the abdomen and pelvis obtained on 04/24/2018 reveals no significant or acute findings in the abdomen/pelvis on CT scan with IV contrast. HISTORY OF PRESENT ILLNESS: The patient is a 62-year-old -[place]ian female with a past medical history of hypertension, as well as previous admissions for encephalopathy. The patient presented to the emergency department. The patient was found afebrile with stable vital signs, in no acute distress, but was found wandering around a schoolyard. The patient stated she was getting exercise and wandered to the cafeteria because she was hungry. The patient, however, was noted to be confused by EMS. While in the emergency department, chest x-ray and CBC were unremarkable. Urinalysis did show hematuria in nephrotic range, proteinuria. The patient was noted to have rhabdomyolysis with a CK of 4536, and given these findings, the patient was referred to the hospitalist for admission and management. HOSPITAL COURSE: The patient was admitted to the medical unit. The patient was hydrated overnight with no change in her creatinine, and the patient's CK went from 4998 to 4536. The patient did not have a significant white count. All other metabolic labs, including B12, TSH, PTH, ammonia were found to be unremarkable. The patient was noted to be confused. An MRI was ordered. The patient listed her next of kin as a brother, Nolberto Mann. However, the number that is provided is an unreachable number. Therefore, no information was able to be obtained regarding the patient's current state. I was notified by nursing staff that the patient had "disappeared" the afternoon of 04/25/2018. Nursing histotechnologist supervisor as well as security were notified and a hospital search was made for the patient. Additionally, [place] [employer] was notified and is agreeable to do a safety check at home. Therefore, at this time, law enforcement is involved. The patient, at the time of this dictation, has not been located. During the patient's stay, at no point in time was she found to be wandering in the hallways. The patient remained in her room and was calm. The patient was eager to go home, had been redirected quite well with our rationale for staying in the hospital. Time spent on this note is 8 minutes. DICTATING PHYSICIAN: YASMANI HERNANDEZ NP [id number] PHY#: [id number] ID: [id number] JOB#: [id number] ACCT: [id number] cc:Maude CARRILLO NP > MICHAEL
== END 2018-04-25 16:56 | disposition left against medical advice (07) | DRG 557 ==
LOC: ER 09:00 → EH 16:21 → 4N 20:15
PROVIDERS: ADMIT Family Medicine; ATTEND Family Medicine
DX: M62.82 Rhabdomyolysis (principal); G93.41 Metabolic encephalopathy; F01.50 Vascular dementia, unspecified severity, without behavioral disturbance, psychotic disturbance, mood disturbance, and anxiety; I10 Essential (primary) hypertension; E11.9 Type 2 diabetes mellitus without complications; Z79.899 Other long term (current) drug therapy; Z88.0 Allergy status to penicillin
CPT/HCPCS: 36415; 70450; 74177; 80053; 80074; 80307; 81001; 82140; 82550; 82553; 82607; 82962; 83690; 83735; 83970; 84443; 84484; 85025; 86592; 96360; 99285; J0360; J1650; J7030; J7040

== ENCOUNTER 2018-04-26 09:19 | Inpatient (IN) | payer MEDICAID ==
[2018-04-26 10:27] LABS: INTERNATIONAL RATION (INR) 0.98; PROTHROMBIN TIME 13.5 SEC (11.4-15.4)
[2018-04-26 10:28] LABS: PARTIAL THROMBOPLASTIN TIME 34.9 SEC (23.5-35.8)
[2018-04-26 10:33] LABS: ABSOLUTE EOSINOPHILS # (AUTO) 0.1 10^3/uL (0.0-0.6); ABSOLUTE MONOCYTES (AUTO) 0.6 10^3/uL (0.1-1.4); ABSOLUTE NEUT (AUTO) 2.8 10^3/uL (1.7-8.2); BASOPHILS % (AUTO) 0.7 % (0-2); EOSINOPHILS % (AUTO) 1.3 % (0-6); HEMATOCRIT 34.1 % (36.0-47.0); HEMOGLOBIN 11.7 g/dL (12.0-15.5); LYMPHOCYTES % (AUTO) 36.8 % (13-45); MEAN CORPUSCULAR HGB CONC 34.4 g/dL (32.0-36.0); MEAN CORPUSCULAR VOLUME 93 fl (80-97); MONOCYTES % (AUTO) 10.2 % (3-13); PLATELET COUNT 293 10^3/uL (150-450); RED BLOOD COUNT 3.67 10^6/uL (3.72-5.28); RED CELL DISTRIBUTION WIDTH 13.1 % (11.5-14.0); TOTAL CELLS COUNTED % (AUTO) 100 %; WHITE BLOOD COUNT 5.5 10^3/uL (4.0-10.5)
[2018-04-26 10:45] LABS: ALANINE AMINOTRANSFERASE 65 U/L (9-52); ALBUMIN 4.2 g/dL (3.5-5.0); ALKALINE PHOSPHATASE 54 U/L (38-126); ANION GAP 9 (5-19); ASPARTATE AMINO TRANSFERASE 166 U/L (14-36); BILIRUBIN,DIRECT 0.2 mg/dL (0.0-0.4); BILIRUBIN,TOTAL 0.8 mg/dL (0.2-1.3); BLOOD UREA NITROGEN 16 mg/dL (7-20); CALCIUM 9.9 mg/dL (8.4-10.2); CARBON DIOXIDE 25 mmol/L (22-30); CHLORIDE 108 mmol/L (98-107); GLUCOSE 125 mg/dL (75-110); POTASSIUM 3.7 mmol/L (3.6-5.0); SODIUM 141.5 mmol/L (137-145); TOTAL PROTEIN 7.5 g/dL (6.3-8.2)
[2018-04-26 10:56] LABS: CREATINE KINASE 3062 U/L (30-135)
[2018-04-26] MEDS ORDERED: NORMAL SALINE 1000 ML 1,000 ML IV ONE (10:56)
--- NOTE | 2018-04-26 11:01 | ER Document Report ---
ED General - General Chief Complaint: Altered Mental Status Stated Complaint: HEADACHE Time Seen by Provider: 04/26/18 10:40 Information source: Patient, Relative Notes: Patient is a 62-year-old female with high blood pressure and diabetes who presents today with her brother secondary to the complaint of a slow developing left sided headache starting last night. No trauma, fevers, blurry vision, neck pain, chest pain, abdominal pain, weakness or numbness. She states that the headache is much improved. The brother brought her in today because he states he attempted to call the patient she did not answer. He states he went to talk to the patient today and she had a brief period where she was "talking to someone not there". The patient's brother states that this is happened in the past multiple times. The patient also in the past has had episodes where she has wandered from her house. She does live alone. TRAVEL OUTSIDE OF THE [place] IN LAST 30 DAYS: No - HPI Onset: Other - See above Onset/Duration: Gone Quality of pain: Other - See above Severity: Mild Pain Level: Denies Associated symptoms: Other - See above Exacerbated by: Denies Relieved by: Denies Similar symptoms previously: Yes Recently seen / treated by doctor: Yes - Related Data Allergies/Adverse Reactions: Penicillins Allergy (Severe, Verified 04/26/18 09:22) Hives Past Medical History - Social History Smoking Status: Unknown if Ever Smoked Family History: Reviewed & Not Pertinent Patient has suicidal ideation: No Patient has homicidal ideation: No - Past Medical History Cardiac Medical History: Reports: Hx Hypertension Neurological Medical History: Reports: Hx Seizures Endocrine Medical History: Reports: Hx Diabetes Mellitus Type 2 Renal/ Medical History: Denies: Hx Peritoneal Dialysis Past Surgical History: Reports: Other - Brain surgery. Denies: Hx Pacemaker - Immunizations Hx Diphtheria, Pertussis, Tetanus Vaccination: No Review of Systems - Review of Systems Constitutional: denies: Fever EENT: denies: Eye discharge, Blurred vision, Nose discharge Cardiovascular: denies: Chest pain, Palpitations Respiratory: denies: Short of breath Gastrointestinal: denies: Vomiting Genitourinary: denies: Dysuria Musculoskeletal: denies: Leg swelling Skin: Other - no hives. denies: Rash Neurological/Psychological: Other - no slurred speech -: Yes All other systems reviewed and negative Physical Exam - Vital signs Vitals: Temp Pulse Resp BP Pulse Ox 99.1 F 82 16 177/65 H 99 04/26/18 09:32 04/26/18 09:32 04/26/18 09:32 04/26/18 09:32 04/26/18 09:32 Notes: Reviewed vital signs and nursing note as charted by RN. CONSTITUTIONAL: Alert and oriented and responds appropriately to questions. She is oriented x4 at this time. Well-appearing; well-nourished HEAD: Normocephalic; atraumatic EYES: PERRL; Conjunctivae clear, sclerae non-icteric ENT: Normal nose; no rhinorrhea; no temporal erythema or tenderness; moist mucous membranes; pharynx without lesions noted NECK: Supple without meningismus; non-tender; no cervical lymphadenopathy, no masses CARD: Regular rate and rhythm; no murmurs; symmetric distal pulses RESP: Normal chest excursion without splinting or tachypnea; breath sounds clear and equal bilaterally ABD/GI: Normal bowel sounds; non-distended; soft, non-tender BACK: The back appears normal and is non-tender to palpation EXT: Normal ROM in all joints; non-tender to palpation; no edema SKIN: No acute lesions noted NEURO: CN 2-12 intact; 5/5 bilateral upper and lower extremity strength with sensation intact to light touch PSYCH: The patient's mood and manner are appropriate. Grooming and personal hygiene are appropriate. Course - Re-evaluation Re-evalutation: 04/26/18 11:00 Given the above history and physical examination I will order a CBC, chemistry, and a CT scan of the head as well as a urine analysis. I am unsure why the other laboratory values were ordered today. Patient has no abdominal pain. I will provide a liter of fluid for appears to be some mild dehydration. Given the quick and reactive pupils bilaterally, soft globes, no temporal erythema or tenderness, no fever, no headache at this time, I do believe subarachnoid hemorrhage, temporal arteritis, and acute angle-closure glaucoma to be unlikely. Given the patient over the last year has had episodes of wandering, found to be talking to people not currently present at that particular time, I am concerned about early dementia. Patient currently has no focal neurological deficits, no pain, and is oriented x4. The patient's brother understands the importance of follow-up with the primary care physician for reassessment. 04/26/18 11:03 Reviewing the patient's chart it appears the patient was actually admitted yesterday? This was for an elevated CK of around 4300. The CK has improved. She had a CT scan of the head as well as the abdomen pelvis on that admission. 04/26/18 11:09 I have called and spoken to the hospitalist team and it appears that the patient left AGAINST MEDICAL ADVICE and pulled out her IV yesterday on the floor. Labs appear to be improved at this time. 04/26/18 11:15 The hospitalist team states that they will come down and speak to the brother and admit the patient back for further evaluation and treatment. They stated that they had called the police and were attempting to find this confused patient that left AGAINST MEDICAL ADVICE. - Vital Signs Vital signs: Temp Pulse Resp BP Pulse Ox 99.1 F 82 16 177/65 H 99 04/26/18 09:32 04/26/18 09:32 04/26/18 09:32 04/26/18 09:32 04/26/18 09:32 - Laboratory Result Diagrams: 04/26/18 10:02 04/26/18 10:02 Laboratory results interpreted by me: 04/26/18 04/26/18 04/26/18 10:02 10:02 10:02 RBC 3.67 L Hgb 11.7 L Hct 34.1 L Chloride 108 H Glucose 125 H AST 166 H ALT 65 H Ammonia < 8.7 L Creatine Kinase 3062 H CK-MB (CK-2) 04/26/18 10:02 RBC Hgb Hct Chloride Glucose AST ALT Ammonia Creatine Kinase CK-MB (CK-2) 6.62 H Discharge - Discharge Clinical Impression: Altered mental status, unspecified Qualifiers: Altered mental status type: unspecified Qualified Code(s): R41.82 - Altered mental status, unspecified Headache Qualifiers: Headache type: unspecified Headache chronicity pattern: unspecified pattern Intractability: not intractable Qualified Code(s): R51 - Headache Admitting Provider: Hospitalist Unit Admitted: Medical Floor Referrals: KARI MYRICK MD [Primary Care Provider] - Follow up as needed
[2018-04-26 11:50] LABS: APPEARANCE,URINE CLEAR; BILIRUBIN,URINE NEGATIVE (NEGATIVE); COLOR,URINE STRAW; GLUCOSE, URINE NEGATIVE (NEGATIVE); KETONES,URINE TRACE mg/dL (NEGATIVE); LEUKOCYTE ESTERASE,URINE NEGATIVE (NEGATIVE); NITRITE,URINE NEGATIVE (NEGATIVE); PROTEIN,URINE 100 mg/dL (NEGATIVE); URINE SPECIFIC GRAVITY 1.008; UROBILINOGEN,URINE NEGATIVE mg/dL (<2.0)
[2018-04-26] MEDS ORDERED: ACETAMINOPHEN 325 MG TABLET PO PRN (11:58)
[2018-04-26] MEDS ORDERED: NIFEDIPINE 30 MG TAB.ER.24 PO ONE (13:00)
--- NOTE | 2018-04-26 13:43 | RADIOLOGY REPORT (SQ) ---
EXAM DESCRIPTION: MRI HEAD COMBO COMPLETED DATE/TIME: 04/26/2018 1:23 pm REASON FOR STUDY: H/O brain mass, AMS, SZ COMPARISON: CT 04/24/2018. 2015. TECHNIQUE: Multiplanar imaging includes noncontrasted T1, T2, FLAIR, diffusion with ADC map and post gadolinium contrast T1 sequences. Images stored on PACS. CONTRAST TYPE AND DOSE: mL RENAL FUNCTION: GFR > 60. LIMITATIONS: None. FINDINGS: ANATOMY: No anomalies. Normal vascular flow voids. Pituitary fossa normal. CSF SPACES: Normal in size and contour. No hemorrhage. CEREBRUM: Chronic right parietal encephalomalacia. No enhancing lesions. No hemorrhage or mass or s hift. POSTERIOR FOSSA: No signal alteration. No hemorrhage. No edema, masses, or mass effect. Internal jhoana tory canals, cerebellopontine angles, mastoids normal. No enhancing lesions. No abnormal enhancement post contrast. DIFFUSION IMAGING: Negative for acute or subacute infarction. ORBITS: No masses. Globes normal. PARANASAL SINUSES: No fluid levels. Mucosa normal. OTHER: No other significant finding. IMPRESSION: Chronic changes. No acute intracranial abnormality. EVIDENCE OF ACUTE STROKE: NO. TECHNICAL DOCUMENTATION: JOB ID: [id number] [employer]- All Rights Reserved Reading location - IP/workstation name: [email or web address]
[2018-04-26] MEDS: NORMAL SALINE 1000 ML 1,000 ML IV PRN ×2 (14:25→22:24)
[2018-04-26] MEDS: HEPARIN SOD (PORCINE) 5,000 UNIT/ML 1 ML SYRINGE SUBCUT SCH ×2 (14:26→22:16)
[2018-04-26] MEDS: DOCUSATE SODIUM 100 MG CAPSULE PO SCH (17:51)
--- NOTE | 2018-04-26 21:37 | HISTORY AND PHYSICAL E ---
History and Physical NAME: SIRENA ZHAO : 1955 AGE: 62Y ADMITTED: 04/26/2018 ROOM: 404 PRIMARY CARE PROVIDER: Cedrick Coffey M.D. CHIEF COMPLAINT: Headache. HISTORY OF PRESENT ILLNESS: The patient is a 62-year-old -Indian female with a past medical history of previous admissions for encephalopathy as well as dementia. The patient was brought into the emergency department by her fiuwgao-vp-vjm who is also her guardian. According to him he went to do a wellness check on her this morning and she was found to have a headache and was not acting completely like herself, so he brought her to the emergency department. The patient actually eloped from this facility on 04/25/2018. At that time the patient was brought in because she had significant confusion and was found wandering around at a school. The patient was attempting to get in a cafeteria in search of food. At that admission the patient was found to have rhabdomyolysis with a CK of 4998. The patient was admitted for hydration and workup for acute encephalopathy. The patient had significant workup which included a B12, TSH, PTH, ammonia, RPR; all of which was unremarkable. The patient was receiving IV fluids, however, she was unable to be located by the nursing staff at approximately 1600 on 04/25/2018. At that time the hospital staff searched for the patient and security did 2 checks of the facility and the patient could not be located. Therefore, [place] [employer] was notified and was sent to locate the patient. Today on examination the patient is not able to tell me how she got home. The patient actually left her belongings in room 401 when she eloped. The patient states that she took the bus home, however, she had no money and left partially dressed. However, this patient got home is still a mystery. However, her guardian is with her today and has provided his information for us to be able to contact him and according to him she has had a history of wandering in the past and often this is associated with headaches. PAST MEDICAL HISTORY: 1. Hypertension, which can be difficult to control. 2. Seizures. 3. Four separate presentations with altered mental status with a long history of wandering. 4. What appears to be a vascular dementia. 5. Diabetes mellitus type 2. PAST SURGICAL HISTORY: Reports possible brain surgery, however, I cannot appreciate this or find this validated in any documentation elsewhere. ALLERGIES: PENICILLIN. HOME MEDICATIONS: 1. Clonidine 0.1 mg p.o. q.12 hours. 2. Ibuprofen 800 mg p.o. q.12 hours. 3. Metformin 500 mg p.o. b.i.d. SOCIAL HISTORY: The patient is unable to articulate whether or not she ever smoked or not. I do think she has in the past. The patient denies any alcohol use. No history of illicit drug use. The patient does have a guardian, Marcin, who is her lktlheq-uy-jql as she is . Her in 2001. Marcin can be reached at [phone]. FAMILY MEDICAL HISTORY: Unable to be provided given the patient's mental status. REVIEW OF SYSTEMS: A full review of systems cannot be appreciated given the patient's mental status. She does state that her headache is improved but denies all other symptoms, but I am unsure of the reliability of this. PHYSICAL EXAMINATION: GENERAL: On examination the patient is well-developed, reasonably nourished, 62-year-old -Indian female who is awake, alert. She is oriented to place but not full insight to situation. She has an odd affect. Does not appear to be distressed. VITAL SIGNS: Temperature is 99, pulse 82, respirations 16, blood pressure 177/65, oxygen saturation is 99% on room air. SKIN: Warm and dry, no rash. She is not diaphoretic. HEENT: Pupils equal, round, reactive to light and accommodation. Conjunctivae are pink. Sclerae are nonicteric. No palpable lymphadenopathy or thyromegaly. There is no evidence of JVP. The patient does have discoloration around her eyes, uncertain if this is bruising or the patient's complexion. Hearing aid in place. CARDIOVASCULAR: Heart is regular. There is no murmur or rub. CHEST: Clear, symmetrical, unlabored. ABDOMEN: Soft, nontender, nondistended. Bowel sounds are present. No palpable organomegaly. BACK: No CVA tenderness or sacral edema. EXTREMITIES: No clubbing, cyanosis, edema, or peripheral signs of embolization. Pedal pulses +1 noted bilaterally. PSYCHIATRIC: The patient has a very odd affect. DIAGNOSTICS: Lab values are as follows - Hematology obtained on 04/26/2018; WBC is 5.5, hemoglobin is 11.7, hematocrit 34.1, platelet count is 293,000. Coagulation obtained on 04/26/2018; PT is 13.5, INR is 0.98. Chemistry obtained on 04/24/2018; sodium is 144, potassium is 2.9, chloride is 108, carbon dioxide 22, BUN 39, creatinine is 1.02, glucose 183, calcium is 10, magnesium 1.7, bilirubin is 0.9, AST 145, ALT is 35, alk-phos 53. Ammonia is 8.7. CK is 3062, troponin is 0.048. Total protein is 8.8, albumin 4.7. Lipase is 103. B12 is 643. TSH is 1.01. PTH is 51.5. Urinalysis obtained on 04/26/2018; color straw appears clear, pH 6.0, specific gravity 1.008, protein 100, glucose negative, ketones trace, occult blood small, nitrite negative, BILI negative, urobilinogen is negative, leukocyte esterase is negative, WBC 0, RBC is 2, epithelial squamous cells less than 1, mucus rare, ascorbic acid is negative. Toxicology obtained on 04/24/2018; latham-negative. Serum alcohol is less than 10. Serology obtained on 04/24/2018; RPR is nonreactive. Hepatitis panel is negative. Head CT obtained on 04/24/2018 reveals chronic changes of atrophy and microvascular ischemia, no acute process. CT of the abdomen and pelvis obtained on 04/24/2018 reveals no significant or acute findings of the abdomen, pelvis on CT scan with IV contrast. IMPRESSION AND PLAN: 1. Rhabdomyolysis, most likely nontraumatic. The patient does not have any recollection of a fall. Will continue to hydrate the patient, her CK trended down from prior. Proteinuria is backing off as well. 2. Acute metabolic encephalopathy. I have suspicion that this is a chronic issue and just worsening of her chronic dementia. Apparently there is a reported history of possible brain mass. Will obtain MRI with and without contrast. However B12, TSH, PTH, ammonia, as well as RPR were all unremarkable. 3. Hypertension. Clonidine may not be the best for the patient especially given her behaviors. As prior we will go ahead and try to transition her over to Procardia to reduce rebounding. 4. Diabetes mellitus type 2 in the nonobese. Will continue Accu-Cheks a.c. and bedtime, hold off on her metformin for now. Her A1c is in acceptable range. 5. Vascular dementia. This has been a previous diagnosis. Previous imaging shows significant microvascular ischemia on previous imaging. Will repeat this. CODE STATUS: The patient is a full code. DISPOSITION: Depending on the patient's symptomatology and diagnostic findings will reevaluate in the a.m. TIME SPENT: On this follow up, including assessment and plan, physical examination, patient education, review of records, as well as family meeting is 70 minutes. DICTATING PHYSICIAN: YASMANI HERNANDEZ NP [id number] PHY#: [id number] ID: [id number] JOB#: [id number] ACCT: [id number] cc:YASMANI HERNANDEZ NP >
[2018-04-26] MEDS: NIFEDIPINE 30 MG TAB.ER.24 PO SCH (22:16)
[2018-04-27 06:00] LABS: ALANINE AMINOTRANSFERASE 54 U/L (9-52); ALBUMIN 3.6 g/dL (3.5-5.0); ALKALINE PHOSPHATASE 40 U/L (38-126); ANION GAP 8 (5-19); ASPARTATE AMINO TRANSFERASE 106 U/L (14-36); BILIRUBIN,DIRECT 0.4 mg/dL (0.0-0.4); BILIRUBIN,TOTAL 0.8 mg/dL (0.2-1.3); BLOOD UREA NITROGEN 10 mg/dL (7-20); CALCIUM 9.2 mg/dL (8.4-10.2); CARBON DIOXIDE 24 mmol/L (22-30); CHLORIDE 111 mmol/L (98-107); CREATINE KINASE 1338 U/L (30-135); GLUCOSE 119 mg/dL (75-110); POTASSIUM 3.7 mmol/L (3.6-5.0); SODIUM 142.8 mmol/L (137-145); TOTAL PROTEIN 6.5 g/dL (6.3-8.2)
[2018-04-27] MEDS: HEPARIN SOD (PORCINE) 5,000 UNIT/ML 1 ML SYRINGE SUBCUT SCH ×3 (06:08→21:23)
[2018-04-27 09:15] LABS: MEAN CORPUSCULAR HGB CONC 34.3 g/dL (32.0-36.0); MEAN CORPUSCULAR VOLUME 93 fl (80-97); PLATELET COUNT 271 10^3/uL (150-450); RED BLOOD COUNT 3.44 10^6/uL (3.72-5.28); WHITE BLOOD COUNT 5.8 10^3/uL (4.0-10.5)
[2018-04-27] MEDS: NIFEDIPINE 30 MG TAB.ER.24 PO SCH ×2 (09:59→21:19)
[2018-04-27] MEDS: DOCUSATE SODIUM 100 MG CAPSULE PO SCH ×2 (09:59→18:13)
--- NOTE | 2018-04-27 16:44 | PDOC PROGRESS REPORT ---
Subjective Progress Note for:: 04/27/18 Subjective:: No adverse events overnight. No new complaints. She was sitting on the edge of the bed and seemed to be looking at the newspaper whenever I came in. She said she ate all of her breakfast was looking forward to lunch. She told me a very circuitous story that had no point that really was not pertinent to her current hospitalization. Reason For Visit: ALTERED MENTAL STATUS HEADACHE Physical Exam Vital Signs: Temp Pulse Resp BP Pulse Ox 98.0 F 74 14 169/63 H 100 04/27/18 11:57 04/27/18 11:57 04/27/18 11:57 04/27/18 11:57 04/27/18 11:57 Intake & Output 04/26/18 04/27/18 04/28/18 06:59 06:59 06:59 Intake Total 2925 Balance 2925 Weight 63.2 kg General appearance: PRESENT: no acute distress, cooperative, disheveled Respiratory exam: PRESENT: clear to auscultation oneil, symmetrical, unlabored. ABSENT: rales, rhonchi, tachypnea, wheezes Cardiovascular exam: PRESENT: RRR, +S1, +S2 Vascular exam: PRESENT: normal capillary refill GI/Abdominal exam: PRESENT: normal bowel sounds, soft. ABSENT: distended, guarding, rebound, tenderness Extremities exam: ABSENT: clubbing, pedal edema Musculoskeletal exam: PRESENT: normal inspection. ABSENT: deformity Neurological exam: PRESENT: alert, awake, oriented to person. ABSENT: oriented to place, oriented to time, oriented to situation Skin exam: PRESENT: dry, warm Results Laboratory Results: 04/27/18 08:35 04/27/18 05:01 04/27/18 04/27/18 04/27/18 05:01 05:01 08:35 WBC Cancelled 5.8 RBC Cancelled 3.44 L Hgb Cancelled 11.0 L Hct Cancelled 32.0 L MCV Cancelled 93 MCH Cancelled 32.0 MCHC Cancelled 34.3 RDW Cancelled 13.0 Plt Count Cancelled 271 Sodium 142.8 Potassium 3.7 Chloride 111 H Carbon Dioxide 24 Anion Gap 8 BUN 10 Creatinine 0.53 Est GFR ( Amer) > 60 Est GFR (Non-Af Amer) > 60 Glucose 119 H Calcium 9.2 Magnesium 1.6 Total Bilirubin 0.8 AST 106 H ALT 54 H Alkaline Phosphatase 40 Total Protein 6.5 Albumin 3.6 04/27/18 05:01 Creatine Kinase 1338 H Impressions: Head MRI 04/26/18 00:00 IMPRESSION: Chronic changes. No acute intracranial abnormality. EVIDENCE OF ACUTE STROKE: NO. Assessment & Plan - Diagnosis (1) Rhabdomyolysis Qualifiers: Rhabdomyolysis type: non-traumatic Qualified Code(s): M62.82 - Rhabdomyolysis Is this a current diagnosis for this admission?: Yes Plan: This is essentially resolved. She is eating and drinking normally. CPK is down to around 1300. (2) Dementia Qualifiers: Dementia type: vascular dementia Dementia behavioral disturbance: with behavioral disturbance Qualified Code(s): F01.51 - Vascular dementia with behavioral disturbance Is this a current diagnosis for this admission?: Yes Plan: She has now wandered off several times from under the care of her caregiver. She lives at home with her amwtbje-wo-gpb lives next door and looks after her. I spoke with the social services manager who had a long conversation with the brother-in- law, and the rvcsukl-de-bus is on board with our plan to find her long-term care in a memory unit. - Time Time Spent with patient: 15-24 minutes
--- NOTE | 2018-04-28 00:51 | EKG REPORT ---
SEVERITY:- ABNORMAL ECG - SINUS RHYTHM CONSIDER LEFT VENTRICULAR HYPERTROPHY : Confirmed by: Melody Joyce MD 28-Apr-2018 00:51:19
[2018-04-28] MEDS: HEPARIN SOD (PORCINE) 5,000 UNIT/ML 1 ML SYRINGE SUBCUT SCH ×4 (05:20→22:15)
[2018-04-28] MEDS: DOCUSATE SODIUM 100 MG CAPSULE PO SCH ×2 (11:32→17:12)
[2018-04-28] MEDS: NIFEDIPINE 30 MG TAB.ER.24 PO SCH ×3 (11:32→22:14)
[2018-04-28] MEDS ORDERED: OLANZAPINE INJ/PF 10 MG SDV IM ONE (18:00)
--- NOTE | 2018-04-28 18:15 | PDOC PROGRESS REPORT ---
Subjective Progress Note for:: 04/28/18 Subjective:: No adverse events overnight. Today she tried to wander off again and we caught her at the front door and got her back into her room. She was refusing to take her medications on multiple occasions, including her blood pressure. While I was in the room with her, she was sitting on the bed was initially talking to me. She then stopped talking for a second to me, staring straight ahead, and then started talking as if she was speaking to someone on the phone but she was not holding a phone. I believe she thought she was talking to her brother-in- law. Reason For Visit: FLOR ALAMO Physical Exam Vital Signs: Temp Pulse Resp BP Pulse Ox 98.4 F 79 18 180/69 H 100 04/27/18 23:04 04/28/18 12:00 04/28/18 12:00 04/28/18 12:00 04/28/18 12:00 Intake & Output 04/27/18 04/28/18 04/29/18 06:59 06:59 06:59 Intake Total 2925 1235 200 Balance 2925 1235 200 Weight 63.2 kg 63.5 kg General appearance: PRESENT: no acute distress, cooperative, disheveled Respiratory exam: PRESENT: clear to auscultation oneil, symmetrical, unlabored. ABSENT: rales, rhonchi, tachypnea, wheezes Cardiovascular exam: PRESENT: RRR, +S1, +S2 Vascular exam: PRESENT: normal capillary refill GI/Abdominal exam: PRESENT: normal bowel sounds, soft. ABSENT: distended, guarding, rebound, tenderness Extremities exam: ABSENT: clubbing, pedal edema Musculoskeletal exam: PRESENT: normal inspection. ABSENT: deformity Neurological exam: PRESENT: alert, awake, oriented to person. ABSENT: oriented to place, oriented to time, oriented to situation Skin exam: PRESENT: dry, warm Results Laboratory Results: 04/27/18 08:35 04/27/18 05:01 04/27/18 05:01 Creatine Kinase 1338 H Impressions: Head MRI 04/26/18 00:00 IMPRESSION: Chronic changes. No acute intracranial abnormality. EVIDENCE OF ACUTE STROKE: NO. Assessment & Plan - Diagnosis (1) Rhabdomyolysis Qualifiers: Rhabdomyolysis type: non-traumatic Qualified Code(s): M62.82 - Rhabdomyolysis Is this a current diagnosis for this admission?: Yes Plan: Resolved. (2) Dementia Qualifiers: Dementia type: vascular dementia Dementia behavioral disturbance: with behavioral disturbance Qualified Code(s): F01.51 - Vascular dementia with behavioral disturbance Is this a current diagnosis for this admission?: Yes Plan: She is getting a bit agitated sometimes. We have had to involuntarily commit her. Her grhwfgr-ey-phn spoke to our social service agency director and is in agreement with the plan to try to get her placed facility long-term with a memory unit. I am going to try an as needed dose of Zyprexa to see if that will help settle her down some. (3) Hypertension Qualifiers: Hypertension type: essential hypertension Qualified Code(s): I10 - Essential (primary) hypertension Is this a current diagnosis for this admission?: Yes Plan: She is refusing her medications. We will continue to offer them periodically. - Time Time Spent with patient: 25-34 minutes
[2018-04-29] MEDS: HEPARIN SOD (PORCINE) 5,000 UNIT/ML 1 ML SYRINGE SUBCUT SCH ×3 (05:53→21:33)
[2018-04-29] MEDS: NIFEDIPINE 30 MG TAB.ER.24 PO SCH ×2 (10:36→21:32)
[2018-04-29] MEDS: DOCUSATE SODIUM 100 MG CAPSULE PO SCH ×2 (10:36→17:40)
--- NOTE | 2018-04-29 19:27 | PDOC PROGRESS REPORT ---
Subjective Progress Note for:: 04/29/18 Subjective:: No adverse events overnight. She is been intermittently refusing to allow vital signs to be checked. She has been refusing to take pills. She has been refusing blood draws. She was eating her lunch today. She was initially quite pleasant and was willing to talk to me but then her mood took a turn and she told me "I be alright if you get out the room." Reason For Visit: RHABDO,AMS Physical Exam Vital Signs: Temp Pulse Resp BP Pulse Ox 98.1 F 79 16 147/89 H 100 04/29/18 12:08 04/29/18 12:08 04/29/18 12:08 04/29/18 12:08 04/29/18 12:08 Intake & Output 04/28/18 04/29/18 04/30/18 06:59 06:59 06:59 Intake Total 1235 600 600 Balance 1235 600 600 Weight 63.5 kg 63.5 kg General appearance: PRESENT: no acute distress, disheveled, well-nourished. ABSENT: cooperative Neurological exam: PRESENT: alert, awake, oriented to person. ABSENT: oriented to place, oriented to time, oriented to situation Results Laboratory Results: 04/27/18 08:35 04/27/18 05:01 04/27/18 05:01 Creatine Kinase 1338 H Impressions: Head MRI 04/26/18 00:00 IMPRESSION: Chronic changes. No acute intracranial abnormality. EVIDENCE OF ACUTE STROKE: NO. Assessment & Plan - Diagnosis (1) Rhabdomyolysis Qualifiers: Rhabdomyolysis type: non-traumatic Qualified Code(s): M62.82 - Rhabdomyolysis Is this a current diagnosis for this admission?: Yes Plan: Resolved. (2) Dementia Qualifiers: Dementia type: vascular dementia Dementia behavioral disturbance: with behavioral disturbance Qualified Code(s): F01.51 - Vascular dementia with behavioral disturbance Is this a current diagnosis for this admission?: Yes Plan: She is getting a bit agitated sometimes. We have had to involuntarily commit her. Her yytledj-ji-bxt spoke to our social economist and is in agreement with the plan to try to get her placed facility long-term with a memory unit. We have not had to give her any more Zyprexa, but she is not letting us give her pills or check labs, and sometimes she will not let us check her vital signs. (3) Hypertension Qualifiers: Hypertension type: essential hypertension Qualified Code(s): I10 - Essential (primary) hypertension Is this a current diagnosis for this admission?: Yes Plan: She is refusing her medications. We will continue to offer them periodically. Fortunately her last couple of blood pressures that she allowed us to check were better than they were yesterday. - Time Time Spent with patient: 15-24 minutes
[2018-04-30] MEDS: HEPARIN SOD (PORCINE) 5,000 UNIT/ML 1 ML SYRINGE SUBCUT SCH ×3 (06:41→21:46)
[2018-04-30] MEDS: NIFEDIPINE 30 MG TAB.ER.24 PO SCH ×2 (10:57→21:45)
[2018-04-30] MEDS: DOCUSATE SODIUM 100 MG CAPSULE PO SCH ×2 (10:57→18:50)
--- NOTE | 2018-04-30 22:24 | PDOC PROGRESS REPORT ---
Subjective Progress Note for:: 04/30/18 Subjective:: Confused but stable Reason For Visit: RHABDO,AMS Physical Exam Vital Signs: Temp Pulse Resp BP Pulse Ox 98.3 F 92 16 163/61 H 100 04/30/18 20:00 04/30/18 20:00 04/30/18 20:00 04/30/18 20:00 04/30/18 20:00 Intake & Output 04/29/18 04/30/18 05/01/18 06:59 06:59 06:59 Intake Total 600 955 480 Balance 600 955 480 Weight 63.5 kg 63.5 kg General appearance: PRESENT: no acute distress, well-developed Respiratory exam: PRESENT: clear to auscultation oneil, symmetrical, unlabored. ABSENT: rales, rhonchi, wheezes Cardiovascular exam: PRESENT: RRR, +S1, +S2 GI/Abdominal exam: PRESENT: normal bowel sounds, soft. ABSENT: tenderness Musculoskeletal exam: PRESENT: ambulatory Neurological exam: PRESENT: alert, awake, oriented to person Psychiatric exam: PRESENT: flat affect Skin exam: PRESENT: dry, normal color, warm Results Laboratory Results: 04/27/18 08:35 04/27/18 05:01 04/26/18 04/26/18 04/26/18 10:02 10:02 10:02 Creatine Kinase 3062 H CK-MB (CK-2) 6.62 H Troponin I 0.048 04/27/18 05:01 Creatine Kinase 1338 H CK-MB (CK-2) Troponin I Impressions: Head MRI 04/26/18 00:00 IMPRESSION: Chronic changes. No acute intracranial abnormality. EVIDENCE OF ACUTE STROKE: NO. Assessment & Plan - Diagnosis (1) Rhabdomyolysis Qualifiers: Rhabdomyolysis type: non-traumatic Qualified Code(s): M62.82 - Rhabdomyolysis Is this a current diagnosis for this admission?: Yes Plan: Her creatinine kinase has been decreasing. I will recheck it tomorrow. (2) Dementia Qualifiers: Dementia type: vascular dementia Dementia behavioral disturbance: with behavioral disturbance Qualified Code(s): F01.51 - Vascular dementia with behavioral disturbance Is this a current diagnosis for this admission?: Yes Plan: She has wondered from the home several times. She will likely need placement in a memory loss unit. (3) Hypertension Qualifiers: Hypertension type: essential hypertension Qualified Code(s): I10 - Essential (primary) hypertension Is this a current diagnosis for this admission?: Yes Plan: Fortunately there have been issues with medication compliance. I will institute a trial of a 0.1 mg clonidine patch. - Time Time Spent with patient: 15-24 minutes
[2018-05-01 05:27] LABS: ANION GAP 7 (5-19); BLOOD UREA NITROGEN 14 mg/dL (7-20); CARBON DIOXIDE 28 mmol/L (22-30); CHLORIDE 106 mmol/L (98-107); CREATINE KINASE 303 U/L (30-135); GLUCOSE 137 mg/dL (75-110); SODIUM 141.4 mmol/L (137-145)
[2018-05-01] MEDS: HEPARIN SOD (PORCINE) 5,000 UNIT/ML 1 ML SYRINGE SUBCUT SCH ×3 (05:47→21:08)
[2018-05-01] MEDS ORDERED: CLONIDINE 0.1 MG/24 HR PATCH.TDWK TD SCH (10:00)
--- NOTE | 2018-05-01 11:17 | PDOC PROGRESS REPORT ---
Subjective Progress Note for:: 05/01/18 Subjective:: Patient is walking around today. She is frustrated that she cannot go home. She does not appreciate the level of dementia. Reason For Visit: TYO,FLOR Physical Exam Vital Signs: Temp Pulse Resp BP Pulse Ox 98.1 F 70 16 163/61 H 97 04/30/18 23:42 04/30/18 23:42 04/30/18 23:42 04/30/18 20:00 04/30/18 23:42 Intake & Output 04/30/18 05/01/18 05/02/18 06:59 06:59 06:59 Intake Total 955 717 Balance 955 717 Weight 63.5 kg 63.5 kg General appearance: PRESENT: no acute distress, cooperative, well-developed Teeth exam: PRESENT: poor dentation Respiratory exam: PRESENT: clear to auscultation oneil, symmetrical, unlabored. ABSENT: prolonged expiratory phas, rhonchi, wheezes Cardiovascular exam: PRESENT: RRR, +S1, +S2 GI/Abdominal exam: PRESENT: normal bowel sounds, soft. ABSENT: tenderness Neurological exam: PRESENT: alert, awake, oriented to person, oriented to place Psychiatric exam: PRESENT: flat affect Skin exam: PRESENT: normal color, warm Results Laboratory Results: 04/27/18 08:35 05/01/18 04:23 05/01/18 04:23 Sodium 141.4 Potassium 4.0 Chloride 106 Carbon Dioxide 28 Anion Gap 7 BUN 14 Creatinine 0.67 Est GFR ( Amer) > 60 Est GFR (Non-Af Amer) > 60 Glucose 137 H Calcium 10.0 Magnesium 1.8 04/26/18 04/26/18 04/26/18 10:02 10:02 10:02 Creatine Kinase 3062 H CK-MB (CK-2) 6.62 H Troponin I 0.048 04/27/18 05/01/18 05:01 04:23 Creatine Kinase 1338 H 303 H CK-MB (CK-2) Troponin I Impressions: Head MRI 04/26/18 00:00 IMPRESSION: Chronic changes. No acute intracranial abnormality. EVIDENCE OF ACUTE STROKE: NO. Assessment & Plan - Diagnosis (1) Rhabdomyolysis Qualifiers: Rhabdomyolysis type: non-traumatic Qualified Code(s): M62.82 - Rhabdomyolysis Is this a current diagnosis for this admission?: Yes Plan: Serum creatinine kinase is down to 300. Rhabdomyolysis is resolved. (2) Dementia Qualifiers: Dementia type: vascular dementia Dementia behavioral disturbance: with behavioral disturbance Qualified Code(s): F01.51 - Vascular dementia with behavioral disturbance Is this a current diagnosis for this admission?: Yes Plan: Unfortunately she is not appreciate the fact that she is no longer able to live alone. We are waiting for placement. She is aware of enough that she is quite frustrated. (3) Hypertension Qualifiers: Hypertension type: essential hypertension Qualified Code(s): I10 - Essential (primary) hypertension Is this a current diagnosis for this admission?: Yes Plan: Patient has refused medications on occasion. I have applied a 0.1 mg clonidine patch. Unfortunately the nurse was unable to take the patient's blood pressure this morning as she refused to let the staff in the room. (4) Hyponatremia Is this a current diagnosis for this admission?: Yes Plan: Serum sodium is in the normal range today. I will over the fluid restriction and allow a 1.5 L daily. Recheck sodium tomorrow. - Time Time Spent with patient: 15-24 minutes Medications reviewed and adjusted accordingly: Yes
[2018-05-01] MEDS: NIFEDIPINE 30 MG TAB.ER.24 PO SCH ×2 (11:50→21:07)
[2018-05-01] MEDS: DOCUSATE SODIUM 100 MG CAPSULE PO SCH ×2 (11:50→17:08)
[2018-05-01] MEDS: HALOPERIDOL LACTATE INJ 5 MG/1 ML VIAL IM PRN ×2 (13:33→13:55)
[2018-05-02] MEDS: HEPARIN SOD (PORCINE) 5,000 UNIT/ML 1 ML SYRINGE SUBCUT SCH ×3 (05:00→21:09)
[2018-05-02] MEDS: DOCUSATE SODIUM 100 MG CAPSULE PO SCH ×2 (10:54→17:07)
[2018-05-02] MEDS: NIFEDIPINE 30 MG TAB.ER.24 PO SCH ×2 (10:54→21:08)
--- NOTE | 2018-05-02 19:59 | PDOC PROGRESS REPORT ---
Subjective Progress Note for:: 05/02/18 Subjective:: The patient has required Haldol. She is actually pleasantly interactive today. In fact she was taking a nap. She awoken easily and sat at the edge of the bed. Reason For Visit: FLOR ALAMO Physical Exam Vital Signs: Temp Pulse Resp BP Pulse Ox 98.5 F 83 16 168/59 H 99 05/02/18 15:31 05/02/18 15:31 05/02/18 15:31 05/02/18 15:31 05/02/18 15:31 Intake & Output 05/01/18 05/02/18 05/03/18 06:59 06:59 06:59 Intake Total 717 480 500 Balance 717 480 500 Weight 63.5 kg 48.4 kg General appearance: PRESENT: no acute distress, cooperative, well-developed Respiratory exam: PRESENT: clear to auscultation oneil, symmetrical, unlabored. ABSENT: accessory muscle use, rales, rhonchi, wheezes Cardiovascular exam: PRESENT: RRR, +S1, +S2 GI/Abdominal exam: PRESENT: normal bowel sounds, soft. ABSENT: tenderness Musculoskeletal exam: PRESENT: ambulatory Neurological exam: PRESENT: alert, awake, oriented to person, oriented to place. ABSENT: oriented to situation - Does not understand that she is on involuntary commitment and is being placed in long-term care. Psychiatric exam: PRESENT: appropriate affect, normal mood. ABSENT: agitated, anxious Results Laboratory Results: 04/27/18 08:35 05/01/18 04:23 04/26/18 04/26/18 04/26/18 10:02 10:02 10:02 Creatine Kinase 3062 H CK-MB (CK-2) 6.62 H Troponin I 0.048 04/27/18 05/01/18 05:01 04:23 Creatine Kinase 1338 H 303 H CK-MB (CK-2) Troponin I Impressions: Head MRI 04/26/18 00:00 IMPRESSION: Chronic changes. No acute intracranial abnormality. EVIDENCE OF ACUTE STROKE: NO. Assessment & Plan - Diagnosis (1) Rhabdomyolysis Qualifiers: Rhabdomyolysis type: non-traumatic Qualified Code(s): M62.82 - Rhabdomyolysis Is this a current diagnosis for this admission?: Yes Plan: Resolved (2) Dementia Qualifiers: Dementia type: vascular dementia Dementia behavioral disturbance: with behavioral disturbance Qualified Code(s): F01.51 - Vascular dementia with behavioral disturbance Is this a current diagnosis for this admission?: Yes Plan: Chronic and stable. Placement pending. (3) Hypertension Qualifiers: Hypertension type: essential hypertension Qualified Code(s): I10 - Essential (primary) hypertension Is this a current diagnosis for this admission?: Yes Plan: Is difficult because the patient refuses medications. We attempted to use a clonidine patch but had difficulty applying it. We will continue to offer appropriate medications. (4) Hyponatremia Is this a current diagnosis for this admission?: Yes Plan: Resolved. I will lessen the fluid restriction. - Time Time Spent with patient: 15-24 minutes Medications reviewed and adjusted accordingly: Yes
[2018-05-03] MEDS: HEPARIN SOD (PORCINE) 5,000 UNIT/ML 1 ML SYRINGE SUBCUT SCH ×3 (05:13→21:08)
[2018-05-03] MEDS: NIFEDIPINE 30 MG TAB.ER.24 PO SCH ×2 (11:08→21:07)
[2018-05-03] MEDS: DOCUSATE SODIUM 100 MG CAPSULE PO SCH ×2 (11:09→17:44)
--- NOTE | 2018-05-03 20:12 | Progress Note ---
Provider Note Provider Note: The patient was out of her room during rounding. I did review clinical data. No remarkable abnormalities to report. Still awaiting placement. The nurse reports no significant agitation today.
[2018-05-04] MEDS: HEPARIN SOD (PORCINE) 5,000 UNIT/ML 1 ML SYRINGE SUBCUT SCH ×3 (05:04→22:00)
[2018-05-04] MEDS: DOCUSATE SODIUM 100 MG CAPSULE PO SCH ×2 (09:05→17:51)
[2018-05-04] MEDS: NIFEDIPINE 30 MG TAB.ER.24 PO SCH ×2 (09:05→22:10)
--- NOTE | 2018-05-04 12:57 | PDOC PROGRESS REPORT ---
Subjective Progress Note for:: 05/04/18 Subjective:: The patient is a 62-year-old female with a past medical history of DM 2, anemia, hypertension, dementia currently under IVC status and awaiting placement in a long-term care facility. She was seen on morning rounds. She was found sitting up to a chair in the corner of her room. She initially would not look at or respond to my questions, but then told me that there was nothing that I could do for her today. ROS is limited secondary to patient's mental state and participation in conversation. The patient's sitter states that she has been "annoyed" at any attempts to interact with her today but overall has appeared comfortable. No concerns per nursing. Reason For Visit: CALLY,FLOR Physical Exam Vital Signs: Temp Pulse Resp BP Pulse Ox 97.9 F 90 18 165/76 H 100 05/04/18 10:53 05/04/18 10:53 05/04/18 10:53 05/04/18 10:53 05/04/18 10:53 Intake & Output 05/03/18 05/04/18 05/05/18 06:59 06:59 06:59 Intake Total 988 738 236 Balance 988 738 236 Weight 46.9 kg 48.2 kg General appearance: PRESENT: no acute distress, thin, well-developed, well- nourished Head exam: PRESENT: atraumatic, normocephalic Eye exam: PRESENT: conjunctiva pink, EOMI, PERRLA. ABSENT: scleral icterus Ear exam: PRESENT: normal external ear exam Mouth exam: PRESENT: moist, tongue midline Neck exam: ABSENT: carotid bruit, JVD, lymphadenopathy, thyromegaly Respiratory exam: PRESENT: clear to auscultation oneil, symmetrical, unlabored. ABSENT: rales, rhonchi, wheezes Cardiovascular exam: PRESENT: RRR. ABSENT: diastolic murmur, rubs, systolic murmur Extremities exam: PRESENT: full ROM. ABSENT: calf tenderness, clubbing, pedal edema Neurological exam: PRESENT: alert, awake, oriented to person, CN II-XII grossly intact. ABSENT: oriented to place, oriented to time, oriented to situation, motor sensory deficit Psychiatric exam: PRESENT: agitated, appropriate affect, normal mood Skin exam: PRESENT: dry, intact, warm. ABSENT: cyanosis, rash Results Laboratory Results: 04/27/18 08:35 05/01/18 04:23 04/26/18 04/26/18 04/26/18 10:02 10:02 10:02 Creatine Kinase 3062 H CK-MB (CK-2) 6.62 H Troponin I 0.048 04/27/18 05/01/18 05:01 04:23 Creatine Kinase 1338 H 303 H CK-MB (CK-2) Troponin I Impressions: Head MRI 04/26/18 00:00 IMPRESSION: Chronic changes. No acute intracranial abnormality. EVIDENCE OF ACUTE STROKE: NO. Assessment & Plan - Diagnosis (1) Rhabdomyolysis Qualifiers: Rhabdomyolysis type: non-traumatic Qualified Code(s): M62.82 - Rhabdomyolysis Is this a current diagnosis for this admission?: Yes Plan: Resolved. Encourage p.o. fluid intake. (2) Dementia Qualifiers: Dementia type: vascular dementia Dementia behavioral disturbance: with behavioral disturbance Qualified Code(s): F01.51 - Vascular dementia with behavioral disturbance Is this a current diagnosis for this admission?: Yes Plan: Chronic vascular dementia with behavioral disturbance and wandering risk. Patient has been IVC for safety; one-to-one sitter. Haloperidol 2 mg IM as needed acute agitation. (3) Hypertension Qualifiers: Hypertension type: essential hypertension Qualified Code(s): I10 - Essential (primary) hypertension Is this a current diagnosis for this admission?: Yes Plan: On average blood pressures are 140-160 over 70s. Patient is intermittently compliant with oral medications. Trial clonidine patches. This has not yet been tried; appears patient refused patch on and medication was not reattempted/rescheduled. Communication order placed instructing that nurses reattempt/reschedule medication as necessary to ensure placement of patch. (4) Hyponatremia Is this a current diagnosis for this admission?: Yes Plan: Resolved. - Time Time Spent with patient: Less than 15 minutes Medications reviewed and adjusted accordingly: Yes Anticipated discharge: Other - half-way memory care Within: when bed available
[2018-05-05] MEDS: HEPARIN SOD (PORCINE) 5,000 UNIT/ML 1 ML SYRINGE SUBCUT SCH ×3 (06:43→23:40)
[2018-05-05] MEDS: NIFEDIPINE 30 MG TAB.ER.24 PO SCH (11:13)
[2018-05-05] MEDS: DOCUSATE SODIUM 100 MG CAPSULE PO SCH ×2 (11:13→17:22)
[2018-05-05] MEDS: CLONIDINE 0.1 MG/24 HR PATCH.TDWK TD SCH (11:14)
--- NOTE | 2018-05-05 15:40 | PDOC PROGRESS REPORT ---
Subjective Progress Note for:: 05/05/18 Subjective:: The patient is a 62-year-old female with a past medical history of DM 2, anemia, hypertension, dementia currently under IVC status and awaiting placement in a long-term care facility. She was seen on morning rounds. She was found sitting up to a chair in the corner of her room. She gives me a long convoluted story that does not make sense and concludes that those are the reasons why should allow her to go home today. When I tell her that I am not yet ready to discharge her she turns her head away and refuses to interact with me further. ROS is limited secondary to patient's mental state and participation in conversation; appears to be comfortable and not in any acute distress. No concerns per nursing. Reason For Visit: FLOR ALAMO Physical Exam Vital Signs: Temp Pulse Resp BP Pulse Ox 97.9 F 75 16 131/70 H 100 05/05/18 08:23 05/05/18 08:23 05/05/18 08:23 05/05/18 08:23 05/05/18 08:23 Intake & Output 05/04/18 05/05/18 05/06/18 06:59 06:59 06:59 Intake Total 738 1116 Balance 738 1116 Weight 48.2 kg 46.7 kg General appearance: PRESENT: no acute distress, thin, well-developed, well-nourished Head exam: PRESENT: atraumatic, normocephalic Eye exam: PRESENT: conjunctiva pink, EOMI, PERRLA. ABSENT: scleral icterus Ear exam: PRESENT: normal external ear exam Mouth exam: PRESENT: moist, tongue midline Neck exam: ABSENT: carotid bruit, JVD, lymphadenopathy, thyromegaly Respiratory exam: PRESENT: clear to auscultation oneil, symmetrical, unlabored. ABSENT: rales, rhonchi, wheezes Cardiovascular exam: PRESENT: RRR. ABSENT: diastolic murmur, rubs, systolic murmur Vascular exam: PRESENT: normal capillary refill Extremities exam: PRESENT: full ROM. ABSENT: calf tenderness, clubbing, pedal edema Musculoskeletal exam: PRESENT: ambulatory Neurological exam: PRESENT: alert, awake, oriented to person, oriented to place, CN II-XII grossly intact. ABSENT: oriented to time, oriented to situation, motor sensory deficit Psychiatric exam: PRESENT: appropriate affect, normal mood. ABSENT: homicidal ideation, suicidal ideation Skin exam: PRESENT: dry, intact, warm. ABSENT: cyanosis, rash Results Laboratory Results: 04/27/18 08:35 05/01/18 04:23 04/26/18 04/26/18 04/26/18 10:02 10:02 10:02 Creatine Kinase 3062 H CK-MB (CK-2) 6.62 H Troponin I 0.048 04/27/18 05/01/18 05:01 04:23 Creatine Kinase 1338 H 303 H CK-MB (CK-2) Troponin I Impressions: Head MRI 04/26/18 00:00 IMPRESSION: Chronic changes. No acute intracranial abnormality. EVIDENCE OF ACUTE STROKE: NO. Assessment & Plan - Diagnosis (1) Rhabdomyolysis Qualifiers: Rhabdomyolysis type: non-traumatic Qualified Code(s): M62.82 - Rhabdomyolysis Is this a current diagnosis for this admission?: Yes Plan: Resolved. Encourage p.o. fluid intake. (2) Dementia Qualifiers: Dementia type: vascular dementia Dementia behavioral disturbance: with behavioral disturbance Qualified Code(s): F01.51 - Vascular dementia with behavioral disturbance Is this a current diagnosis for this admission?: Yes Plan: Chronic vascular dementia with behavioral disturbance and wandering risk. Patient has been IVC for safety; one-to-one sitter. Haloperidol 2 mg IM as needed acute agitation. Nursing successfully applied clonidine patch today; may assist in mitigating patient's agitation and behavioral disturbances. (3) Hypertension Qualifiers: Hypertension type: essential hypertension Qualified Code(s): I10 - Ess ential (primary) hypertension Is this a current diagnosis for this admission?: Yes Plan: On average blood pressures are 140-160/70s. Patient is intermittently compliant with oral medications. Trial Clonidine 0.1 mg/24 patch; nursing was finally able to apply patch today. (4) Hyponatremia Is this a current diagnosis for this admission?: Yes Plan: Resolved. - Time Time Spent with patient: Less than 15 minutes Anticipated discharge: Other - Long-term memory care Within: when bed available
[2018-05-06] MEDS: NIFEDIPINE 30 MG TAB.ER.24 PO SCH ×3 (00:22→21:22)
[2018-05-06] MEDS ORDERED: LORAZEPAM INJ 2 MG/1 ML VIAL ONE (01:44)
[2018-05-06] MEDS ORDERED: LORAZEPAM INJ 2 MG/1 ML VIAL IM ONE (05:30)
[2018-05-06] MEDS: HEPARIN SOD (PORCINE) 5,000 UNIT/ML 1 ML SYRINGE SUBCUT SCH ×3 (06:16→21:20)
[2018-05-06] MEDS: DOCUSATE SODIUM 100 MG CAPSULE PO SCH ×2 (11:00→17:02)
--- NOTE | 2018-05-06 15:02 | PDOC PROGRESS REPORT ---
Subjective Progress Note for:: 05/06/18 Subjective:: The patient is a 62-year-old AAF with a past medical history of DM 2, anemia, hypertension, and vascular dementia. She remains under IVC status and awaiting placement in a LTC facility. She also continues to have a 1:1 sitter. When evaluated the patient is sitting in the chair in personal clothes and jacket. It was hard to discern at first if she was a patient or family member. She is PLATINUM and guarded. She reports living in apartment next next to her brother in law for several years. She is AAO to self, place, day, date, year. At this time she does not come across as overtly demented. However after talking to nursing it seems that she has more difficulty in the evening time, and with certain members of staff. It does seem she was acutely agitated last night and had to recieve haldol and ativan. seems she responded better to ativan. Most of her breakfast tray has been eaten, and she reports good appetite. No acute concerns mentioned by nursing. Reason For Visit: RHABDO,AMS, HTN Physical Exam Vital Signs: Temp Pulse Resp BP Pulse Ox 98.2 F 85 16 144/57 H 99 05/05/18 19:16 05/05/18 19:16 05/05/18 19:16 05/05/18 19:16 05/05/18 19:16 Intake & Output 05/05/18 05/06/18 05/07/18 06:59 06:59 06:59 Intake Total 1116 1007 Balance 1116 1007 Weight 46.7 kg 50.1 kg General appearance: PRESENT: no acute distress, thin Head exam: PRESENT: atraumatic Ear exam: PRESENT: normal external ear exam, other - PLATINUM. hearing aid right ear Mouth exam: PRESENT: moist, tongue midline Teeth exam: PRESENT: poor dentation Respiratory exam: PRESENT: clear to auscultation oneil. ABSENT: rales, rhonchi, wheezes Cardiovascular exam: PRESENT: RRR. ABSENT: diastolic murmur, rubs, systolic murmur Pulses: PRESENT: normal dorsalis pedis pul GI/Abdominal exam: PRESENT: soft, other - non-tender. non-distended Rectal exam: PRESENT: deferred Extremities exam: PRESENT: full ROM, pedal edema - no edema BLLE, other Musculoskeletal exam: PRESENT: full ROM Neurological exam: PRESENT: alert, awake, oriented to person, oriented to place, oriented to time, oriented to situation, CN II-XII grossly intact. ABSENT: motor sensory deficit Psychiatric exam: PRESENT: flat affect - blunted, normal mood Results Laboratory Results: 04/27/18 08:35 05/01/18 04:23 04/26/18 04/26/18 04/26/18 10:02 10:02 10:02 Creatine Kinase 3062 H CK-MB (CK-2) 6.62 H Troponin I 0.048 04/27/18 05/01/18 05:01 04:23 Creatine Kinase 1338 H 303 H CK-MB (CK-2) Troponin I Impressions: Head MRI 04/26/18 00:00 IMPRESSION: Chronic changes. No acute intracranial abnormality. EVIDENCE OF ACUTE STROKE: NO. Assessment & Plan - Diagnosis (1) Altered mental status, unspecified Qualifiers: Altered mental status type: unspecified Qualified Code(s): R41.82 - Altered mental status, unspecified Is this a current diagnosis for this admission?: Yes (2) Dementia Qualifiers: Dementia type: vascular dementia Dementia behavioral disturbance: with behavioral disturbance Qualified Code(s): F01.51 - Vascular dementia with behavioral disturbance Is this a current diagnosis for this admission?: Yes (4) Hypertension Qualifiers: Hypertension type: essential hypertension Qualified Code(s): I10 - Essential (primary) hypertension Is this a current diagnosis for this admission?: Yes (5) Rhabdomyolysis Qualifiers: Rhabdomyolysis type: non-traumatic Qualified Code(s): M62.82 - Rhab domyolysis Is this a current diagnosis for this admission?: Yes - Time Time Spent with patient: 25-34 minutes Medications reviewed and adjusted accordingly: Yes Anticipated discharge: Other - LTC Facility - Inpatient Certification Based on my medical assessment, after consideration of the patient's comorbidities, presenting symptoms, or acuity I expect that the services needed warrant INPATIENT care.: Yes I certify that my determination is in accordance with my understanding of Medicare's requirements for reasonable and necessary INPATIENT services [42 CFR 412.3e].: Yes - Plan Summary Plan Summary: (1) Rhabdomyolysis Qualifiers: Rhabdomyolysis type: non-traumatic Qualified Code(s): M62.82 - Rhabdomyolysis Is this a current diagnosis for this admission?: Yes Plan: Resolved. Encourage p.o. fluid intake. (2) Dementia Qualifiers: Dementia type: vascular dementia Dementia behavioral disturbance: with behavioral disturbance Qualified Code(s): F01.51 - Vascular dementia with behavioral disturbance Is this a current diagnosis for this admission?: Yes Plan: -Chronic vascular dementia with behavioral disturbance and wandering risk. She was re-IVC'd today for her safety; continue with one-to-one sitter. options for behavior distubrnace are limited and most carry a black box warning, that being the benefits out-weight the risks at this time. needs frequent re-monitoring of medications. -last MRI was 04/26/18 -start 50mg po qpm trazodone as she seems to displays a sundowning component -trial po 25mg seroquel q6h prn for agitation -clonidine for HTN may mildly assist in agitation and behavioral disturbances. -prn haldol has not been overly effective in the past -prn ativan has demonstrated mild benefits in the past. -needs MOCA and/or further testing (3) Hypertension Qualifiers: Hypertension type: essential hypertension Qualified Code(s): I10 - Essential (primary) hypertension Is this a current diagnosis for this admission?: Yes Plan: -SBP average 140s -intermittently compliant with oral medications. - started on Trial Clonidine 0.1 mg/24 patch during admission (4) Hyponatremia Is this a current diagnosis for this admission?: Yes Plan: Resolved. (5) DM -BG averaging in the 150s (6) Anemia -chronic suspect. no acute bleeding observed. hgb stable in 11-12 range Disposition: -continue with IVC status and 1:1 sitter for patient safety. patient needs computer terminal operator monitoring.
[2018-05-07] MEDS: HEPARIN SOD (PORCINE) 5,000 UNIT/ML 1 ML SYRINGE SUBCUT SCH ×3 (05:03→21:14)
[2018-05-07] MEDS: DOCUSATE SODIUM 100 MG CAPSULE PO SCH ×2 (10:31→17:08)
[2018-05-07] MEDS: NIFEDIPINE 30 MG TAB.ER.24 PO SCH ×2 (10:33→21:14)
--- NOTE | 2018-05-07 15:35 | PDOC PROGRESS REPORT ---
Subjective Progress Note for:: 05/07/18 Subjective:: The patient is a 62-year-old AAF with a past medical history of DM 2, anemia, hypertension, and vascular dementia. She remains under IVC status and awaiting placement in a LTC facility. She also continues to have a 1:1 sitter. Ms Herrera continues to have a sitter and her IVC paperwork was re-newed yesterday. She continues to have a good appetite. She is AAO to self, place, date, year, president. She cannot recall my name but does remember speaking to me. During my eval she does become confused and irritable at one point. She desires to go home. She is mostly cooperative. No reports of agitation last night, so hopefully trazodone was beneficial. She does report improved sleep and less irritability last night. Reason For Visit: RHABDO,AMS Physical Exam Vital Signs: Temp Pulse Resp BP Pulse Ox 98.1 F 71 16 127/50 H 100 05/06/18 20:00 05/06/18 20:00 05/06/18 20:00 05/06/18 20:00 05/06/18 20:00 Intake & Output 05/06/18 05/07/18 05/08/18 06:59 06:59 06:59 Intake Total 1007 999 740 Balance 1007 999 740 Weight 50.1 kg 50.3 kg General appearance: PRESENT: no acute distress, thin Head exam: PRESENT: atraumatic, normocephalic Eye exam: PRESENT: conjunctiva pink, EOMI, PERRLA. ABSENT: scleral icterus Ear exam: PRESENT: normal external ear exam Mouth exam: PRESENT: moist, tongue midline Teeth exam: PRESENT: poor dentation Neck exam: ABSENT: carotid bruit, JVD, lymphadenopathy, thyromegaly Respiratory exam: PRESENT: clear to auscultation oneil. ABSENT: rales, rhonchi, wheezes Cardiovascular exam: PRESENT: RRR, +S1, +S2. ABSENT: diastolic murmur, rubs, systolic murmur Pulses: PRESENT: normal dorsalis pedis pul Vascular exam: PRESENT: normal capillary refill GI/Abdominal exam: PRESENT: normal bowel sounds, soft. ABSENT: distended, guarding, mass, organolmegaly, rebound, tenderness Rectal exam: PRESENT: deferred Extremities exam: PRESENT: full ROM. ABSENT: calf tenderness, clubbing, pedal edema Neurological exam: PRESENT: alert, awake, oriented to person, oriented to place, oriented to time, oriented to situation, CN II-XII grossly intact. ABSENT: motor sensory deficit Psychiatric exam: PRESENT: other - somewhat irritable. ABSENT: homicidal ideation, suicidal ideation Skin exam: PRESENT: dry, intact, warm. ABSENT: cyanosis, rash Results Laboratory Results: 04/27/18 08:35 05/01/18 04:23 04/26/18 04/26/18 04/26/18 10:02 10:02 10:02 Creatine Kinase 3062 H CK-MB (CK-2) 6.62 H Troponin I 0.048 04/27/18 05/01/18 05:01 04:23 Creatine Kinase 1338 H 303 H CK-MB (CK-2) Troponin I Impressions: Head MRI 04/26/18 00:00 IMPRESSION: Chronic changes. No acute intracranial abnormality. EVIDENCE OF ACUTE STROKE: NO. Assessment & Plan - Diagnosis (1) Altered mental status, unspecified Qualifiers: Altered mental status type: unspecified Qualified Code(s): R41.82 - Altered mental status, unspecified Is this a current diagnosis for this admission?: Yes (2) Dementia Qualifiers: Dementia type: vascular dementia Dementia behavioral disturbance: with behavioral disturbance Qualified Code(s): F01.51 - Vascular dementia with behavioral disturbance Is this a current diagnosis for this admission?: Yes (4) Hypertension Qualifiers: Hypertension type: essential hypertension Qualified Code(s): I10 - Essential (primary) hypertension Is this a current diagnosis for this admission?: Yes (5) Rhabdomyolysis Qualifiers: Rhabdomyolysis type: non-traumatic Qualified Code(s): M62.82 - Rhabdomyolysis Is this a current diagnosis for this admission?: Yes - Time Time Spent with patient: 25-34 minutes Medications reviewed and adjusted accordingly: Yes - Inpatient Certification Based on my medical assessment, after consideration of the patient's comorbidities, presenting symptoms, or acuity I expect that the services needed warrant INPATIENT care.: Yes I certify that my determination is in accordance with my understanding of Medicare's requirements for reasonable and necessary INPATIENT services [42 CFR 412.3e].: Yes - Plan Summary Plan Summary: (1) Rhabdomyolysis Qualifiers: Rhabdomyolysis type: non-traumatic Qualified Code(s): M62.82 - Rhabdomyolysis Is this a current diagnosis for this admission?: Yes Plan: Resolved. Encourage p.o. fluid intake. (2) Dementia Qualifiers: Dementia type: vascular dementia Dementia behavioral disturbance: with behavioral disturbance Qualified Code(s): F01.51 - Vascular dementia with behavioral disturbance Is this a current diagnosis for this admission?: Yes Plan: -Chronic vascular dementia with behavioral disturbance and wandering risk. She was re-IVC'd today for her safety; continue with one-to-one sitter. options for behavior disturbance are limited, and most carry a black box warning, that being said the benefits outweigh the risks at this time. needs frequent re-monitoring of medications. -last MRI was 04/26/18 -50mg po qpm trazodone as she seems to displays a sundowning component -continue trial po 25mg seroquel q6h prn for agitation -clonidine for HTN may mildly assist in agitation and behavioral disturbances. -prn haldol has not been overly effective in the past -prn ativan has demonstrated mild benefits in the past. -needs MOCA and/or further testing -irritability most likely related to vascular dementia, but given her most recent UA was 04/26, suspicion for UTI is always there. Monitor. (3) Hypertension Qualifiers: Hypertension type: essential hypertension Qualified Code(s): I10 - Essential (primary) hypertension Is this a current diagnosis for this admission?: Yes Plan: -SBP average 140s -intermittently compliant with oral medications. -started on Trial Clonidine 0.1 mg/24 patch during admission (4) Hyponatremia Is this a current diagnosis for this admission?: Yes Plan: Resolved. check bmp in am (5) DM -BG averaging in the 150s -check a1c (6) Anemia -chronic suspect. no acute bleeding observed. hgb stable in 11-12 range -check cbc in am Disposition: -continue with IVC status and 1:1 sitter for patient safety. patient needs terminal operations manager monitoring.
[2018-05-08] MEDS: HEPARIN SOD (PORCINE) 5,000 UNIT/ML 1 ML SYRINGE SUBCUT SCH ×3 (05:00→21:41)
[2018-05-08] MEDS: DOCUSATE SODIUM 100 MG CAPSULE PO SCH ×2 (09:26→17:12)
[2018-05-08] MEDS: NIFEDIPINE 30 MG TAB.ER.24 PO SCH ×2 (09:28→21:40)
[2018-05-08] MEDS ORDERED: QUETIAPINE FUMARATE 25 MG TABLET PO PRN (17:52)
--- NOTE | 2018-05-08 17:55 | PDOC PROGRESS REPORT ---
Subjective Progress Note for:: 05/08/18 Subjective:: The patient is a 62-year-old AAF with a past medical history of DM 2, anemia, hypertension, and vascular dementia. She remains under IVC status and awaiting placement in a LTC facility. She also continues to have a 1:1 sitter. Ms Herrera continues to have a sitter and her IVC paperwork. She is mostly oriented today. She is oriented to self, month, year, president, and remembers my name. She does not remember the day or date. She continues to desire discharge, but does not endorse nor does she oppose that she would benefit from assistance in her daily activities. Her appetite continues to be good. She continues to sleep better at night on trazodone, no reports of agitation have been made over the past 48 hours. Reason For Visit: FLOR ALAMO Physical Exam Vital Signs: Temp Pulse Resp BP Pulse Ox 98.6 F 86 17 142/74 H 100 05/08/18 08:09 05/08/18 08:09 05/08/18 08:09 05/08/18 08:09 05/08/18 08:09 Intake & Output 05/07/18 05/08/18 05/09/18 06:59 06:59 06:59 Intake Total 999 1765 Balance 999 1765 Weight 50.3 kg 50.4 kg General appearance: PRESENT: no acute distress, well-developed, well-nourished Head exam: PRESENT: atraumatic, normocephalic Eye exam: PRESENT: conjunctiva pink, EOMI, PERRLA. ABSENT: scleral icterus Ear exam: PRESENT: normal external ear exam Mouth exam: PRESENT: moist, tongue midline Teeth exam: PRESENT: poor dentation Neck exam: ABSENT: carotid bruit, JVD, lymphadenopathy, thyromegaly Respiratory exam: PRESENT: clear to auscultation oneil. ABSENT: rales, rhonchi, wheezes Cardiovascular exam: PRESENT: diastolic murmur, RRR, rubs, +S1, +S2, systolic murmur Pulses: PRESENT: normal dorsalis pedis pul Vascular exam: PRESENT: normal capillary refill GI/Abdominal exam: PRESENT: normal bowel sounds, soft. ABSENT: distended, guarding, mass, organolmegaly, rebound, tenderness Rectal exam: PRESENT: deferred Extremities exam: PRESENT: full ROM. ABSENT: calf tenderness, clubbing, pedal edema Neurological exam: PRESENT: alert, awake, oriented to person, oriented to place, oriented to time, oriented to situation, CN II-XII grossly intact. ABSENT: motor sensory deficit Psychiatric exam: PRESENT: appropriate affect, normal mood. ABSENT: homicidal ideation, suicidal ideation Skin exam: PRESENT: dry, intact, warm. ABSENT: cyanosis, rash Results Laboratory Results: 04/27/18 08:35 05/01/18 04:23 04/26/18 04/26/18 04/26/18 10:02 10:02 10:02 Creatine Kinase 3062 H CK-MB (CK-2) 6.62 H Troponin I 0.048 04/27/18 05/01/18 05:01 04:23 Creatine Kinase 1338 H 303 H CK-MB (CK-2) Troponin I Impressions: Head MRI 04/26/18 00:00 IMPRESSION: Chronic changes. No acute intracranial abnormality. EVIDENCE OF ACUTE STROKE: NO. Assessment & Plan - Diagnosis (1) Altered mental status, unspecified Qualifiers: Altered mental status type: unspecified Qualified Code(s): R41.82 - Altered mental status, unspecified Is this a current diagnosis for this admission?: Yes (2) Dementia Qualifiers: Dementia type: vascular dementia Dementia behavioral disturbance: with behavioral disturbance Qualified Code(s): F01.51 - Vascular dementia with behavioral disturbance Is this a current diagnosis for this admission?: Yes (4) Hypertension Qualifiers: Hypertension type: essential hypertension Qualified Code(s): I10 - Essential (primary) hypertension Is this a current diagnosis for this admission?: Yes (5) Rhabdomyolysis Qualifiers: Rhabdomyolysis type: non-traumatic Qualified Code(s): M62.82 - Rhabdomyolysis Is this a current diagnosis for this admission?: Yes - Time Time Spent with patient: 25-34 minutes Medications reviewed and adjusted accordingly: Yes - Inpatient Certification Based on my medical assessment, after consideration of the patient's comorbidities, presenting symptoms, or acuity I expect that the services needed warrant INPATIENT care.: Yes I certify that my determination is in accordance with my understanding of Medicare's requirements for reasonable and necessary INPATIENT services [42 CFR 412.3e].: Yes - Plan Summary Plan Summary: (1) Rhabdomyolysis Qualifiers: Rhabdomyolysis type: non-traumatic Qualified Code(s): M62.82 - Rhabdomyolysis Is this a current diagnosis for this admission?: Yes Plan: Resolved. Encourage p.o. fluid intake. (2) Dementia Qualifiers: Dementia type: vascular dementia Dementia behavioral disturbance: with behavioral disturbance Qualified Code(s): F01.51 - Vascular dementia with behavioral disturbance Is this a current diagnosis for this admission?: Yes Plan: -Chronic vascular dementia with behavioral disturbance and wandering risk. She was re-IVC'd for her safety; continue with one-to-one sitter. options for behavior disturbance are limited, and most carry a black box warning, that being said the benefits outweigh the risks at this time. needs frequent re-monitoring of medications. -last MRI was 04/26/18 -50mg po qpm trazodone for intermittent sleep disturbance. -continue trial po 25mg seroquel q6h prn for agitation -prn haldol has not been mildly effective in the past -prn ativan has demonstrated mild benefits in the past. -needs MOCA and/or further testing. Consult psychiatry for recommendations. -irritability most likely related to vascular dementia, but given her most recent UA was 04/26, suspicion for UTI is always there. Monitor. (3) Hypertension Qualifiers: Hypertension type: essential hypertension Qualified Code(s): I10 - Essential (primary) hypertension Is this a current diagnosis for this admission?: Yes Plan: -SBP average 140s -Increase Procardia to 90 mg to achieve better control. -started on Trial Clonidine 0.1 mg/24 patch during admission (4) Hyponatremia Is this a current diagnosis for this admission?: Yes Plan: Resolved. check bmp in am (5) DM -BG averaging in the 150s -check a1c -daily asa 81mg (6) Anemia -chronic suspect. no acute bleeding observed. hgb stable in 11-12 range -check cbc in am Disposition: -continue with IVC status and 1:1 sitter for patient safety. patient needs fpc monitoring.
[2018-05-08] MEDS: TRAZODONE HCL 50 MG TABLET PO SCH (21:41)
[2018-05-09] MEDS: HEPARIN SOD (PORCINE) 5,000 UNIT/ML 1 ML SYRINGE SUBCUT SCH ×3 (05:03→21:47)
[2018-05-09] MEDS: NIFEDIPINE 30 MG TAB.ER.24 PO SCH ×2 (10:21→21:47)
[2018-05-09] MEDS: ASPIRIN 81 MG TABLET, ENT COATED PO SCH (10:22)
[2018-05-09] MEDS: DOCUSATE SODIUM 100 MG CAPSULE PO SCH ×2 (10:23→17:40)
--- NOTE | 2018-05-09 15:32 | PDOC PROGRESS REPORT ---
Subjective Progress Note for:: 05/09/18 Subjective:: The patient is a 62-year-old AAF with a past medical history of DM 2, anemia, hypertension, and vascular dementia. She remains under IVC status and awaiting placement in a LTC facility. She also continues to have a 1:1 sitter. Ms Herrera is oriented to self, person, place, date, time, year, and remembers my name. She continues to refuse a.m. labs. Lengthy discussion had about importance of labs and encouragement provided. She continues to report good appetite. She reports sleeping well last night. No reports of agitation. Discharge planning continues to work on her destination. She has no complaints in the nursing has no concerning records. Reason For Visit: FLOR ALAMO Physical Exam Vital Signs: Temp Pulse Resp BP Pulse Ox 99 F 67 18 124/47 L 98 05/09/18 08:55 05/09/18 08:55 05/09/18 08:55 05/09/18 08:55 05/09/18 08:55 Intake & Output 05/08/18 05/09/18 05/10/18 06:59 06:59 06:59 Intake Total 1765 800 Balance 1765 800 Weight 50.4 kg 47.7 kg General appearance: PRESENT: no acute distress, disheveled, thin Head exam: PRESENT: atraumatic, normocephalic Eye exam: PRESENT: conjunctiva pink, EOMI, PERRLA. ABSENT: scleral icterus Ear exam: PRESENT: normal external ear exam Mouth exam: PRESENT: moist, tongue midline Teeth exam: PRESENT: poor dentation Respiratory exam: PRESENT: clear to auscultation oneil Cardiovascular exam: PRESENT: RRR, +S1, +S2 Pulses: PRESENT: normal dorsalis pedis pul Vascular exam: PRESENT: normal capillary refill GI/Abdominal exam: PRESENT: normal bowel sounds, soft. ABSENT: distended, guarding, mass, organolmegaly, rebound, tenderness Rectal exam: PRESENT: deferred Extremities exam: PRESENT: full ROM. ABSENT: calf tenderness, clubbing, pedal edema Neurological exam: PRESENT: alert, awake, oriented to person, oriented to place, oriented to time, oriented to situation, CN II-XII grossly intact. ABSENT: motor sensory deficit Psychiatric exam: PRESENT: flat affect Results Laboratory Results: 04/27/18 08:35 05/01/18 04:23 04/26/18 04/26/18 04/26/18 10:02 10:02 10:02 Creatine Kinase 3062 H CK-MB (CK-2) 6.62 H Troponin I 0.048 04/27/18 05/01/18 05:01 04:23 Creatine Kinase 1338 H 303 H CK-MB (CK-2) Troponin I Impressions: Head MRI 04/26/18 00:00 IMPRESSION: Chronic changes. No acute intracranial abnormality. EVIDENCE OF ACUTE STROKE: NO. Assessment & Plan - Diagnosis (1) Altered mental status, unspecified Qualifiers: Altered mental status type: unspecified Qualified Code(s): R41.82 - Altered mental status, unspecified Is this a current diagnosis for this admission?: Yes (2) Dementia Qualifiers: Dementia type: vascular dementia Dementia behavioral disturbance: with behavioral disturbance Qualified Code(s): F01.51 - Vascular dementia with behavioral disturbance Is this a current diagnosis for this admission?: Yes (4) Hypertension Qualifiers: Hypertension type: essential hypertension Qualified Code(s): I10 - Essential (primary) hypertension Is this a current diagnosis for this admission?: Yes (5) Rhabdomyolysis Qualifiers: Rhabdomyolysis type: non-traumatic Qualified Code(s): M62.82 - Rhabdomyolysis Is this a current diagnosis for this admission?: Yes - Time Time Spent with patient: 25-34 minutes Medications reviewed and adjusted accordingly: Yes - Inpatient Certification Based on my medical assessment, after consideration of the patient's comorbidities, presenting symptoms, or acuity I expect that the services needed warrant INPATIENT care.: Yes I certify that my determination is in accordance with my understanding of Medicare's requirements for reasonable and necessary INPATIENT services [42 CFR 412.3e].: Yes - Plan Summary Plan Summary: (1) Rhabdomyolysis Qualifiers: Rhabdomyolysis type: non-traumatic Qualified Code(s): M62.82 - Rhabdomyolysis Is this a current diagnosis for this admission?: Yes Plan: Resolved. Encourage p.o. fluid intake. (2) Dementia Qualifiers: Dementia type: vascular dementia Dementia behavioral disturbance: with behavioral disturbance Qualified Code(s): F01.51 - Vascular dementia with behavioral disturbance Is this a current diagnosis for this admission?: Yes Plan: -Chronic vascular dementia with behavioral disturbance and wandering risk. She was re-IVC'd for her safety; continue with one-to-one sitter. options for behavior disturbance are limited, and most carry a black box warning, that being said the benefits outweigh the risks at this time. needs frequent re-monitoring of medications. -last MRI was 04/26/18 -50mg po qpm trazodone for intermittent sleep disturbance. -continue trial po 25mg seroquel q6h prn for agitation -prn haldol was mildly effective in the past -prn ativan has demonstrated mild-moderate benefits in the past. -needs MOCA and/or further testing. Consult psychiatry for recommendations and evaluation of capacity. -Intermittent irritability most likely related to vascular dementia, or delirium, and given her most recent UTI was 04/26, suspicion for UTI (and/or another infection ) is always there. Monitor. (3) Hypertension Qualifiers: Hypertension type: essential hypertension Qualified Code(s): I10 - Essential (primary) hypertension Is this a current diagnosis for this admission?: Yes Plan: -SBP average 120s. Monitoring -Improved since increasing Procardia to 90 mg to achieve better control. -started on Clonidine trial 0.1 mg/24 patch during admission (4) Hyponatremia Is this a current diagnosis for this admission?: Yes Plan: Resolved. (5) DM -BG averaging in the 150s. -daily asa 81mg (6) Anemia -chronic suspect. no acute bleeding observed. hgb stable in 11-12 range Disposition: -continue with IVC status and 1:1 sitter for patient safety. patient needs snf monitoring. Attempts have been made to recheck labs, but patient continues to refuse.
[2018-05-09 18:49] LABS: APPEARANCE,URINE CLEAR; BILIRUBIN,URINE NEGATIVE (NEGATIVE); COLOR,URINE YELLOW; GLUCOSE, URINE NEGATIVE (NEGATIVE); KETONES,URINE NEGATIVE (NEGATIVE); LEUKOCYTE ESTERASE,URINE NEGATIVE (NEGATIVE); NITRITE,URINE NEGATIVE (NEGATIVE); PROTEIN,URINE 30 mg/dL (NEGATIVE); URINE SPECIFIC GRAVITY 1.015; UROBILINOGEN,URINE NEGATIVE mg/dL (<2.0)
[2018-05-09] MEDS: TRAZODONE HCL 50 MG TABLET PO SCH (21:47)
[2018-05-10] MEDS: HEPARIN SOD (PORCINE) 5,000 UNIT/ML 1 ML SYRINGE SUBCUT SCH ×3 (05:22→21:29)
[2018-05-10] MEDS: NIFEDIPINE 30 MG TAB.ER.24 PO SCH ×2 (09:56→21:30)
[2018-05-10] MEDS: ASPIRIN 81 MG TABLET, ENT COATED PO SCH (09:56)
[2018-05-10] MEDS: DOCUSATE SODIUM 100 MG CAPSULE PO SCH ×2 (09:57→19:25)
--- NOTE | 2018-05-10 15:51 | PDOC PROGRESS REPORT ---
Subjective Progress Note for:: 05/10/18 Subjective:: The patient is a 62-year-old AAF with a past medical history of DM 2, anemia, hypertension, and vascular dementia. She remains under IVC status and awaiting placement in a LTC facility. She also continues to have a 1:1 sitter. Ms Herrera is oriented to self, person, place, time, president, situation. She continues to be mostly lucid during my evaluations. It does seem that the patient became slightly agitated last night. She reports sleeping well on trazodone and denies there was any issues overnight. She continues to report a good appetite. She refused labs again this morning. However she has now agreed to allowing lab draw blood tomorrow morning. Her sense of humor is intact. She has no current complaints, and nursing reports no issues. Her IVC paperwork will be recompleted again today. Patient denies being in pain, shortness of breath, fever, chills, nausea, vomiting. Reason For Visit: TYO,FLOR Physical Exam Vital Signs: Temp Pulse Resp BP Pulse Ox 98.6 F 76 16 121/69 97 05/10/18 08:02 05/10/18 08:02 05/10/18 08:02 05/10/18 08:02 05/10/18 08:02 Intake & Output 05/09/18 05/10/18 05/11/18 06:59 06:59 06:59 Intake Total 800 1685 Balance 800 1685 Weight 47.7 kg 47.7 kg General appearance: PRESENT: no acute distress, disheveled, thin Head exam: PRESENT: atraumatic, normocephalic Eye exam: PRESENT: conjunctiva pink, EOMI, PERRLA. ABSENT: scleral icterus Ear exam: PRESENT: normal external ear exam Mouth exam: PRESENT: moist, tongue midline Teeth exam: PRESENT: poor dentation Neck exam: ABSENT: carotid bruit, JVD, lymphadenopathy, thyromegaly Respiratory exam: PRESENT: clear to auscultation oneil. ABSENT: rales, rhonchi, wheezes Cardiovascular exam: PRESENT: RRR. ABSENT: diastolic murmur, rubs, systolic m urmur Pulses: PRESENT: normal dorsalis pedis pul Vascular exam: PRESENT: normal capillary refill GI/Abdominal exam: PRESENT: normal bowel sounds, soft. ABSENT: distended, guarding, mass, organolmegaly, rebound, tenderness Rectal exam: PRESENT: deferred Extremities exam: PRESENT: full ROM. ABSENT: calf tenderness, clubbing, pedal edema Musculoskeletal exam: PRESENT: full ROM, normal inspection Neurological exam: PRESENT: alert, awake, oriented to person, oriented to place, oriented to time, oriented to situation, CN II-XII grossly intact. ABSENT: motor sensory deficit Psychiatric exam: PRESENT: appropriate affect, normal mood. ABSENT: homicidal ideation, suicidal ideation Skin exam: PRESENT: dry, intact, warm. ABSENT: cyanosis, rash Results Laboratory Results: 04/27/18 08:35 05/01/18 04:23 05/09/18 16:45 Urine Color YELLOW Urine Appearance CLEAR Urine pH 5.0 Ur Specific Dewar 1.015 Urine Protein 30 H Urine Glucose (UA) NEGATIVE Urine Ketones NEGATIVE Urine Blood SMALL H Urine Nitrite NEGATIVE Ur Leukocyte Esterase NEGATIVE Urine WBC (Auto) 1 Urine RBC (Auto) 0 04/26/18 04/26/18 04/26/18 10:02 10:02 10:02 Creatine Kinase 3062 H CK-MB (CK-2) 6.62 H Troponin I 0.048 04/27/18 05/01/18 05:01 04:23 Creatine Kinase 1338 H 303 H CK-MB (CK-2) Troponin I Impressions: Head MRI 04/26/18 00:00 IMPRESSION: Chronic changes. No acute intracranial abnormality. EVIDENCE OF ACUTE STROKE: NO. Assessment & Plan - Diagnosis (1) Altered mental status, unspecified Qualifiers: Altered mental status type: unspecified Qualified Code(s): R41.82 - Altered mental status, unspecified Is this a current diagnosis for this admission?: Yes (2) Dementia Qualifiers: Dementia type: vascular dementia Dementia behavioral disturbance: with behavioral disturbance Qualified Code(s): F01.51 - Vascular dementia with behavioral disturbance Is this a current diagnosis for this admission?: Yes (4) Hypertension Qualifiers: Hypertension type: essential hypertension Qualified Code(s): I10 - Essential (primary) hypertension Is this a current diagnosis for this admission?: Yes (5) Rhabdomyolysis Qualifiers: Rhabdomyolysis type: non-traumatic Qualified Code(s): M62.82 - Rhabdomyolysis Is this a current diagnosis for this admission?: Yes - Time Time Spent with patient: 25-34 minutes Medications reviewed and adjusted accordingly: Yes - Inpatient Certification Based on my medical assessment, after consideration of the patient's c omorbidities, presenting symptoms, or acuity I expect that the services needed warrant INPATIENT care.: Yes I certify that my determination is in accordance with my understanding of Medicare's requirements for reasonable and necessary INPATIENT services [42 CFR 412.3e].: Yes - Plan Summary Plan Summary: (1) Rhabdomyolysis Qualifiers: Rhabdomyolysis type: non-traumatic Qualified Code(s): M62.82 - Rhabdomyolysis Is this a current diagnosis for this admission?: Yes Plan: Resolved. Encourage p.o. fluid intake. (2) Dementia Qualifiers: Dementia type: vascular dementia Dementia behavioral disturbance: with behavioral disturbance Qualified Code(s): F01.51 - Vascular dementia with behavioral disturbance Is this a current diagnosis for this admission?: Yes Plan: -Chronic vascular dementia with behavioral disturbance and wandering risk. She was re-IVC'd for her safety; continue with one-to-one sitter. options for behavior disturbance are limited, and most carry a black box warning, that being said the benefits outweigh the risks at this time. needs frequent re-monitoring of medications. -last MRI was 04/26/18 -50mg po qpm trazodone for intermittent sleep disturbance. -continue trial po 25mg seroquel q6h prn for agitation -prn haldol was mildly effective in the past -prn ativan has demonstrated mild-moderate benefits in the past. -needs MOCA and/or further testing. Patient needs a full evaluation by psychiatry and neurology. Unfortunately neither are available here. -Intermittent irritability most likely related to vascular dementia, or delirium, and given her most recent UTI was 04/26, suspicion for UTI (and/or another infection ) is always there. Monitor. (3) Hypertension Qualifiers: Hypertension type: essential hypertension Qualified Code(s): I10 - Essentia l (primary) hypertension Is this a current diagnosis for this admission?: Yes Plan: -SBP average 120s. Monitoring. Improved since increasing Procardia to 90 mg to achieve better control. -started on Clonidine trial 0.1 mg/24 patch during admission (4) Hyponatremia Is this a current diagnosis for this admission?: Yes Plan: Resolved. (5) DM -BG averaging in the 150s. -daily asa 81mg (6) Anemia -chronic suspect. no acute bleeding observed. hgb stable in 11-12 range Disposition: -continue with IVC status and 1:1 sitter for patient safety. patient needs mcc monitoring. Attempts have been made to recheck labs, but patient continues to refuse. However patient has agreed to letting lab draw blood in the morning.
[2018-05-10] MEDS: TRAZODONE HCL 50 MG TABLET PO SCH (21:31)
[2018-05-11] MEDS: HEPARIN SOD (PORCINE) 5,000 UNIT/ML 1 ML SYRINGE SUBCUT SCH ×3 (05:19→21:20)
[2018-05-11 06:05] LABS: HEMOGLOBIN 11.4 g/dL (12.0-15.5); MEAN CORPUSCULAR HEMOGLOBIN 31.9 pg (27.0-33.4); MEAN CORPUSCULAR HGB CONC 34.4 g/dL (32.0-36.0); MEAN CORPUSCULAR VOLUME 93 fl (80-97); PLATELET COUNT 315 10^3/uL (150-450); RED BLOOD COUNT 3.56 10^6/uL (3.72-5.28); WHITE BLOOD COUNT 5.1 10^3/uL (4.0-10.5)
[2018-05-11 06:23] LABS: ALANINE AMINOTRANSFERASE 29 U/L (9-52); ALBUMIN 3.6 g/dL (3.5-5.0); ALKALINE PHOSPHATASE 49 U/L (38-126); ANION GAP 8 (5-19); ASPARTATE AMINO TRANSFERASE 24 U/L (14-36); BILIRUBIN,DIRECT 0.2 mg/dL (0.0-0.4); BILIRUBIN,TOTAL 0.4 mg/dL (0.2-1.3); BLOOD UREA NITROGEN 23 mg/dL (7-20); CALCIUM 9.7 mg/dL (8.4-10.2); CARBON DIOXIDE 26 mmol/L (22-30); CHLORIDE 107 mmol/L (98-107); GLUCOSE 146 mg/dL (75-110); POTASSIUM 4.7 mmol/L (3.6-5.0); SODIUM 140.8 mmol/L (137-145); TOTAL PROTEIN 6.9 g/dL (6.3-8.2); TRIGLYCERIDES 69 mg/dL (<150)
[2018-05-11 06:34] LABS: DIRECT LDL 115 mg/dL (<100)
[2018-05-11] MEDS: ASPIRIN 81 MG TABLET, ENT COATED PO SCH (09:36)
[2018-05-11] MEDS: NIFEDIPINE 30 MG TAB.ER.24 PO SCH ×2 (09:36→21:21)
[2018-05-11] MEDS: DOCUSATE SODIUM 100 MG CAPSULE PO SCH ×2 (09:36→18:36)
[2018-05-11] MEDS ORDERED: CLONIDINE 0.1 MG/24 HR PATCH.TDWK TD SCH (10:00)
--- NOTE | 2018-05-11 10:46 | PSYCHOLOGICAL NOTE ---
Psych Note - Psych Note Date seen by psych provider: 05/09/18 Time seen by psych provider: 14:55 Psych Note: Reason for Consult: Capacity Patient received evaluation for capacity on 05/09/2018. Patient is felt to lack capacity at this time. While patient is orientated to person, place, time, and circumstance; she lacks abstract, rational and higher cortical reasoning including decision making and safety reasoning with the ability to maintain her own safety and that of others. These deficits place her at significant risk for engaging in high risk behaviors, becoming seriously injured or in or a victim of crime without 24-hour supervision. Thus it is recommended legal guardianship is obtained for the patient. Full report will be submitted.
--- NOTE | 2018-05-11 15:53 | PDOC PROGRESS REPORT ---
Subjective Progress Note for:: 05/11/18 Subjective:: The patient is a 62-year-old AAF with a past medical history of DM 2, anemia, hypertension, and vascular dementia. She remains under IVC status and awaiting placement in a LTC facility. She also continues to have a 1:1 sitter. Ms Herrera remains oriented. She did allow lab to draw blood this morning. She is eating well. She seems to ambulate well in the room. There have been no recent reports of agitation. Patient seems to be sleeping well on the trazodone. She continues to have a sitter in the IVC paperwork was redone by psych. No specific concerns were reported by nursing. Reason For Visit: FLOR ALAMO Physical Exam Vital Signs: Temp Pulse Resp BP Pulse Ox 97.9 F 79 16 148/71 H 100 05/11/18 08:00 05/11/18 08:00 05/11/18 08:00 05/11/18 08:00 05/11/18 08:00 Intake & Output 05/10/18 05/11/18 05/12/18 06:59 06:59 06:59 Intake Total 1685 1121 593 Balance 1685 1121 593 Weight 47.7 kg 46.9 kg General appearance: PRESENT: no acute distress, disheveled, thin Head exam: PRESENT: atraumatic, normocephalic Eye exam: PRESENT: conjunctiva pink, EOMI, PERRLA. ABSENT: scleral icterus Ear exam: PRESENT: normal external ear exam Mouth exam: PRESENT: moist, tongue midline Teeth exam: PRESENT: poor dentation Respiratory exam: PRESENT: clear to auscultation oneil. ABSENT: rales, rhonchi, wheezes Cardiovascular exam: PRESENT: RRR. ABSENT: diastolic murmur, rubs, systolic murmur Pulses: PRESENT: normal dorsalis pedis pul Vascular exam: PRESENT: normal capillary refill GI/Abdominal exam: PRESENT: normal bowel sounds, soft. ABSENT: distended, guarding, mass, organolmegaly, rebound, tenderness Rectal exam: PRESENT: deferred Extremities exam: PRESENT: full ROM. ABSENT: calf tenderness, clubbing, pedal edema Musculoskeletal exam: PRESENT: full ROM, normal inspection Neurological exam: PRESENT: alert, awake, oriented to person, oriented to place, oriented to time, oriented to situation, CN II-XII grossly intact. ABSENT: motor sensory deficit Psychiatric exam: PRESENT: appropriate affect, normal mood. ABSENT: homicidal ideation, suicidal ideation Results Laboratory Results: 05/11/18 05:24 05/11/18 05:24 05/11/18 05/11/18 05/11/18 05:24 05:24 05:24 WBC 5.1 RBC 3.56 L Hgb 11.4 L Hct 33.0 L MCV 93 MCH 31.9 MCHC 34.4 RDW 13.0 Plt Count 315 Sodium 140.8 Potassium 4.7 Chloride 107 Carbon Dioxide 26 Anion Gap 8 BUN 23 H Creatinine 0.84 Est GFR ( Amer) > 60 Est GFR (Non-Af Amer) > 60 Glucose 146 H Calcium 9.7 Total Bilirubin 0.4 AST 24 ALT 29 Alkaline Phosphatase 49 Total Protein 6.9 Albumin 3.6 Triglycerides 69 Cholesterol 239.80 H LDL Cholesterol Direct 115 H VLDL Cholesterol 14.0 HDL Cholesterol 81 TSH 3.84 04/26/18 04/26/18 04/26/18 10:02 10:02 10:02 Creatine Kinase 3062 H CK-MB (CK-2) 6.62 H Troponin I 0.048 04/27/18 05/01/18 05:01 04:23 Creatine Kinase 1338 H 303 H CK-MB (CK-2) Troponin I Impressions: Head MRI 04/26/18 00:00 IMPRESSION: Chronic changes. No acute intracranial abnormality. EVIDENCE OF ACUTE STROKE: NO. Assessment & Plan - Diagnosis (1) Altered mental status, unspecified Qualifiers: Altered mental status type: unspecified Qualified Code(s): R41.82 - Altered mental status, unspecified Is this a current diagnosis for this admission?: Yes (2) Dementia Qualifiers: Dementia type: vascular dementia Dementia behavioral disturbance: with behavioral disturbance Qualified Code(s): F01.51 - Vascular dementia with behavioral disturbance Is this a current diagnosis for this admission?: Yes (4) Hypertension Qualifiers: Hypertension type: essential hypertension Qualified Code(s): I10 - Essential (primary) hypertension Is this a current diagnosis for this admission?: Yes (5) Rhabdomyolysis Qualifiers: Rhabdomyolysis type: non-traumatic Qualified Code(s): M62.82 - R habdomyolysis Is this a current diagnosis for this admission?: Yes - Time Time Spent with patient: 25-34 minutes - Inpatient Certification Based on my medical assessment, after consideration of the patient's comorbidities, presenting symptoms, or acuity I expect that the services needed warrant INPATIENT care.: Yes I certify that my determination is in accordance with my understanding of Medicare's requirements for reasonable and necessary INPATIENT services [42 CFR 412.3e].: Yes - Plan Summary Plan Summary: Plan Summary: (1) Rhabdomyolysis Qualifiers: Rhabdomyolysis type: non-traumatic Qualified Code(s): M62.82 - Rhabdomyolysis Is this a current diagnosis for this admission?: Yes Plan: Resolved. Encourage p.o. fluid intake. (2) Dementia Qualifiers: Dementia type: vascular dementia Dementia behavioral disturbance: with behavioral disturbance Qualified Code(s): F01.51 - Vascular dementia with behavioral disturbance Is this a current diagnosis for this admission?: Yes Plan: -Chronic vascular dementia with behavioral disturbance and wandering risk. She was re-IVC'd for her safety; continue with one-to-one sitter. options for behavior disturbance are limited, and most carry a black box warning, that being said the benefits outweigh the risks at this time. needs frequent re-monitoring of medications. -last MRI was 04/26/18 -50mg po qpm trazodone for intermittent sleep disturbance. -continue trial po 25mg seroquel q6h prn for agitation -prn haldol was mildly effective in the past -prn ativan has demonstrated mild-moderate benefits in the past. -Intermittent irritability most likely related to vascular dementia, or delirium, and given her most recent UTI was 04/26, suspicion for UTI (and/or another infection ) is always there. Monitor. -Psychiatry continues to feel that the patient needs to relinquish guardianship. -Manage the modifiable factors were possible. (3) Hypertension Qualifiers: Hypertension type: essential hypertension Qualified Code(s): I10 - E ssential (primary) hypertension Is this a current diagnosis for this admission?: Yes Plan: -SBP average 120s. Monitoring. Improved since increasing Procardia to 90 mg to achieve better control. -started on Clonidine trial 0.1 mg/24 patch during admission (4) Hyponatremia Is this a current diagnosis for this admission?: Yes Plan: Resolved. (5) DM -BG averaging in the 150s. A1c 5.9. -daily asa 81mg (6) Anemia -chronic suspect. no acute bleeding observed. hgb stable in 11-12 range (7) hyperlipidemia -Start atorvastatin 20 mg nightly. Disposition: -continue with IVC status and 1:1 sitter for patient safety. patient needs exterminator monitoring per psych recommendations.
[2018-05-11] MEDS: ATORVASTATIN CALCIUM 20 MG TABLET PO SCH (21:20)
[2018-05-11] MEDS: TRAZODONE HCL 50 MG TABLET PO SCH (21:21)
[2018-05-12] MEDS: HEPARIN SOD (PORCINE) 5,000 UNIT/ML 1 ML SYRINGE SUBCUT SCH ×3 (05:43→22:09)
[2018-05-12] MEDS: CLONIDINE 0.1 MG/24 HR PATCH.TDWK TD SCH (09:28)
[2018-05-12] MEDS: NIFEDIPINE 30 MG TAB.ER.24 PO SCH ×2 (09:29→22:19)
[2018-05-12] MEDS: DOCUSATE SODIUM 100 MG CAPSULE PO SCH ×2 (09:29→17:04)
[2018-05-12] MEDS: ASPIRIN 81 MG TABLET, ENT COATED PO SCH (09:29)
--- NOTE | 2018-05-12 17:54 | PDOC PROGRESS REPORT ---
Subjective Progress Note for:: 05/12/18 Subjective:: Patient is resting comfortably. Just waking from a nap. Reason For Visit: RHABDO,AMS Physical Exam Vital Signs: Temp Pulse Resp BP Pulse Ox 98.4 F 84 17 139/64 H 97 05/12/18 15:42 05/12/18 15:42 05/12/18 15:42 05/12/18 15:42 05/12/18 15:42 Intake & Output 05/11/18 05/12/18 05/13/18 06:59 06:59 06:59 Intake Total 1121 1250 Balance 1121 1250 Weight 46.9 kg 46.9 kg General appearance: PRESENT: no acute distress, cooperative, well-developed Head exam: PRESENT: normocephalic Teeth exam: PRESENT: poor dentation Respiratory exam: PRESENT: clear to auscultation oneil, symmetrical, unlabored. ABSENT: accessory muscle use, rales, rhonchi, wheezes Cardiovascular exam: PRESENT: RRR, +S1, +S2, systolic murmur - 2/6 GI/Abdominal exam: PRESENT: normal bowel sounds, soft. ABSENT: distended, tenderness Extremities exam: ABSENT: calf tenderness, pedal edema Musculoskeletal exam: PRESENT: ambulatory Neurological exam: PRESENT: alert, awake, oriented to person, oriented to place Psychiatric exam: ABSENT: agitated, anxious Results Laboratory Results: 05/11/18 05:24 05/11/18 05:24 04/26/18 04/26/18 04/26/18 10:02 10:02 10:02 Creatine Kinase 3062 H CK-MB (CK-2) 6.62 H Troponin I 0.048 04/27/18 05/01/18 05:01 04:23 Creatine Kinase 1338 H 303 H CK-MB (CK-2) Troponin I Impressions: Head MRI 04/26/18 00:00 IMPRESSION: Chronic changes. No acute intracranial abnormality. EVIDENCE OF ACUTE STROKE: NO. Assessment & Plan - Diagnosis (1) Dementia Qualifiers: Dementia type: vascular dementia Dementia behavioral disturbance: with behavioral disturbance Qualified Code(s): F01.51 - Vascular dementia with behavioral disturbance Is this a current diagnosis for this admission?: Yes Plan: Chronic. Awaiting placement. She has exhibited significant risk for wandering. She continues on involuntary commitment. Psychiatry feels that she is not able to make informed decisions. (2) Hypertension Qualifiers: Hypertension type: essential hypertension Qualified Code(s): I10 - Essential (primary) hypertension Is this a current diagnosis for this admission?: Yes Plan: Reasonable blood pressure control. Continue current medications. (3) Hyponatremia Is this a current diagnosis for this admission?: Yes Plan: Serum sodium remains normal. She is on 1.5 L fluid restriction. I will c ontinue the same. (4) Rhabdomyolysis Qualifiers: Rhabdomyolysis type: non-traumatic Qualified Code(s): M62.82 - Rhabdomyolysis Is this a current diagnosis for this admission?: Yes Plan: Resolved - Time Time Spent with patient: Less than 15 minutes Medications reviewed and adjusted accordingly: Yes Anticipated discharge: SNF
[2018-05-12] MEDS: TRAZODONE HCL 50 MG TABLET PO SCH (22:18)
[2018-05-12] MEDS: ATORVASTATIN CALCIUM 20 MG TABLET PO SCH (22:18)
[2018-05-13] MEDS: HEPARIN SOD (PORCINE) 5,000 UNIT/ML 1 ML SYRINGE SUBCUT SCH ×3 (05:31→22:25)
[2018-05-13] MEDS: NIFEDIPINE 30 MG TAB.ER.24 PO SCH ×2 (10:20→22:35)
[2018-05-13] MEDS: DOCUSATE SODIUM 100 MG CAPSULE PO SCH ×2 (10:20→17:32)
[2018-05-13] MEDS: ASPIRIN 81 MG TABLET, ENT COATED PO SCH (10:20)
--- NOTE | 2018-05-13 13:52 | PDOC PROGRESS REPORT ---
Subjective Progress Note for:: 05/13/18 Subjective:: The patient is dressed and sitting up in a chair. She remains frustrated by her prolonged stay in the hospital and does not understand the reasoning for the IVC. Reason For Visit: CALLY,FLOR Physical Exam Vital Signs: Temp Pulse Resp BP Pulse Ox 98.0 F 75 16 140/72 H 100 05/13/18 12:00 05/13/18 12:00 05/13/18 12:00 05/13/18 12:00 05/13/18 12:00 Intake & Output 05/12/18 05/13/18 05/14/18 06:59 06:59 06:59 Intake Total 1250 887 Balance 1250 887 Weight 46.9 kg 104.2 kg General appearance: PRESENT: no acute distress, well-developed Head exam: PRESENT: normocephalic Teeth exam: PRESENT: poor dentation Respiratory exam: PRESENT: clear to auscultation oneil, symmetrical, unlabored. ABSENT: rales, stridor, wheezes Cardiovascular exam: PRESENT: RRR, +S1, +S2 GI/Abdominal exam: PRESENT: normal bowel sounds, soft. ABSENT: distended, tenderness Neurological exam: PRESENT: alert, awake, oriented to person, oriented to place, CN II-XII grossly intact Psychiatric exam: PRESENT: appropriate affect Results Laboratory Results: 05/11/18 05:24 05/11/18 05:24 04/26/18 04/26/18 04/26/18 10:02 10:02 10:02 Creatine Kinase 3062 H CK-MB (CK-2) 6.62 H Troponin I 0.048 04/27/18 05/01/18 05:01 04:23 Creatine Kinase 1338 H 303 H CK-MB (CK-2) Troponin I Impressions: Head MRI 04/26/18 00:00 IMPRESSION: Chronic changes. No acute intracranial abnormality. EVIDENCE OF ACUTE STROKE: NO. Assessment & Plan - Diagnosis (1) Dementia Qualifiers: Dementia type: vascular dementia Dementia behavioral disturbance: with be havioral disturbance Qualified Code(s): F01.51 - Vascular dementia with b ehavioral disturbance Is this a current diagnosis for this admission?: Yes Plan: Appears to be back at baseline. She does not comprehend the concerns of her [id number] with her wandering. She blames a wandering on low blood glucose. She states that it is not an issue anymore because she will carry to peppermint candies in her pocket. (2) Hypertension Qualifiers: Hypertension type: essential hypertension Qualified Code(s): I10 - Essential (primary) hypertension Is this a current diagnosis for this admission?: Yes Plan: Reasonable blood pressure control. Continue current medications. (3) Hyponatremia Is this a current diagnosis for this admission?: Yes Plan: Resolved (4) Rhabdomyolysis Qualifiers: Rhabdomyolysis type: non-traumatic Qualified Code(s): M62.82 - Rhabdomyolysis Is this a current diagnosis for this admission?: Yes Plan: Resolved - Time Time Spent with patient: Less than 15 minutes Medications reviewed and adjusted accordingly: Yes Anticipated discharge: SNF - Plan Summary Plan Summary: As above
[2018-05-13] MEDS: ATORVASTATIN CALCIUM 20 MG TABLET PO SCH (22:35)
[2018-05-13] MEDS: TRAZODONE HCL 50 MG TABLET PO SCH (22:35)
[2018-05-14] MEDS: HEPARIN SOD (PORCINE) 5,000 UNIT/ML 1 ML SYRINGE SUBCUT SCH ×3 (05:06→22:17)
[2018-05-14] MEDS: NIFEDIPINE 30 MG TAB.ER.24 PO SCH ×2 (09:05→22:15)
[2018-05-14] MEDS: DOCUSATE SODIUM 100 MG CAPSULE PO SCH ×2 (09:06→15:26)
[2018-05-14] MEDS: ASPIRIN 81 MG TABLET, ENT COATED PO SCH (09:06)
--- NOTE | 2018-05-14 13:17 | PDOC PROGRESS REPORT ---
Subjective Progress Note for:: 05/14/18 Subjective:: Patient was sitting at the edge of the bed. She became upset when we discussed the potential placement interview that is supposed to occur today. Reason For Visit: CALLY,FLOR Physical Exam Vital Signs: Temp Pulse Resp BP Pulse Ox 97.4 F 77 16 140/56 H 100 05/14/18 11:55 05/14/18 11:55 05/14/18 11:55 05/14/18 11:55 05/14/18 11:55 Intake & Output 05/13/18 05/14/18 05/15/18 06:59 06:59 06:59 Intake Total 887 1133 Balance 887 1133 Weight 104.2 kg 104.5 kg General appearance: PRESENT: no acute distress Exam: The patient refused to let me examine her Psychiatric exam: PRESENT: agitated Results Laboratory Results: 05/11/18 05:24 05/11/18 05:24 04/26/18 04/26/18 04/26/18 10:02 10:02 10:02 Creatine Kinase 3062 H CK-MB (CK-2) 6.62 H Troponin I 0.048 04/27/18 05/01/18 05:01 04:23 Creatine Kinase 1338 H 303 H CK-MB (CK-2) Troponin I Impressions: Head MRI 04/26/18 00:00 IMPRESSION: Chronic changes. No acute intracranial abnormality. EVIDENCE OF ACUTE STROKE: NO. Assessment & Plan - Diagnosis (1) Dementia Qualifiers: Dementia type: vascular dementia Dementia behavioral disturbance: with behavioral disturbance Qualified Code(s): F01.51 - Vascular dementia with behavioral disturbance Is this a current diagnosis for this admission?: Yes Plan: Appears to be back at baseline. She does not comprehend the concerns of her gragrzw-yr-jxr with her wandering. She blames a wandering on low blood glucose. She states that it is not an issue anymore because she will carry to peppermint candies in her pocket. (2) Hypertension Qualifiers: Hypertension type: essential hypertension Qualified Code(s): I10 - Essential (primary) hypertension Is this a current diagnosis for this admission?: Yes Plan: Reasonable blood pressure control. Continue current medications. (3) Hyponatremia Is this a current diagnosis for this admission?: Yes Plan: Resolved (4) Rhabdomyolysis Qualifiers: Rhabdomyolysis type: non-traumatic Qualified Code(s): M62.82 - Rhabdomyolysis Is this a current diagnosis for this admission?: Yes Plan: Resolved - Time Time Spent with patient: Less than 15 minutes Medications reviewed and adjusted accordingly: Yes Anticipated discharge: SNF - Plan Summary Plan Summary: I signed an [place] to form. Facility is coming to assess the patient for possible placement. The patient became extremely upset when I discussed this. I asked her if anyone had come to speak to her. She insisted that I called her [id number]. I am going to discuss with case management because I believe her [id number] is in fact in favor of placement.
[2018-05-14] MEDS: ATORVASTATIN CALCIUM 20 MG TABLET PO SCH (22:16)
[2018-05-14] MEDS: TRAZODONE HCL 50 MG TABLET PO SCH (22:16)
[2018-05-15] MEDS: HEPARIN SOD (PORCINE) 5,000 UNIT/ML 1 ML SYRINGE SUBCUT SCH ×3 (05:47→21:43)
[2018-05-15] MEDS: DOCUSATE SODIUM 100 MG CAPSULE PO SCH ×2 (09:20→17:13)
[2018-05-15] MEDS: ASPIRIN 81 MG TABLET, ENT COATED PO SCH (09:20)
[2018-05-15] MEDS: NIFEDIPINE 30 MG TAB.ER.24 PO SCH ×2 (09:20→22:35)
--- NOTE | 2018-05-15 12:20 | PDOC PROGRESS REPORT ---
Subjective Progress Note for:: 05/15/18 Subjective:: The patient was sitting comfortably on the side of the bed eating lunch. Reason For Visit: CALLY,FLOR Physical Exam Vital Signs: Temp Pulse Resp BP Pulse Ox 98.3 F 84 16 138/62 H 100 05/15/18 11:37 05/15/18 11:37 05/15/18 11:37 05/15/18 11:37 05/15/18 11:37 Intake & Output 05/14/18 05/15/18 05/16/18 06:59 06:59 06:59 Intake Total 1133 600 Balance 1133 600 Weight 104.5 kg 102.2 kg Exam: The patient was very angry. See discussion below. Physical exam was not able to be performed. Musculoskeletal exam: PRESENT: ambulatory Neurological exam: PRESENT: alert, awake Psychiatric exam: PRESENT: agitated Additional comments: Unfortunately the patient does not want to go to an assisted living facility. Psychiatry has deemed her not competent to make decisions. Her vseqcff-sf-lzy who lives next to her and has been tasked with making decisions is in agreement with the plan. She has been picked up by the police multiple times. Her brother and psychiatry feel that it is very unsafe for her to return to her apartment living by herself. Assisted living facility has come by to interview the patient. We should know within a day or 2 if she will be accepted. We did place a PPD as this is requir ed prior to their admission. Results Laboratory Results: 05/11/18 05:24 05/11/18 05:24 04/26/18 04/26/18 04/26/18 10:02 10:02 10:02 Creatine Kinase 3062 H CK-MB (CK-2) 6.62 H Troponin I 0.048 04/27/18 05/01/18 05:01 04:23 Creatine Kinase 1338 H 303 H CK-MB (CK-2) Troponin I Impressions: Head MRI 04/26/18 00:00 IMPRESSION: Chronic changes. No acute intracranial abnormality. EVIDENCE OF ACUTE STROKE: NO. Assessment & Plan - Diagnosis (1) Dementia Qualifiers: Dementia type: vascular dementia Dementia behavioral disturbance: with behavioral disturbance Qualified Code(s): F01.51 - Vascular dementia with behavioral disturbance Is this a current diagnosis for this admission?: Yes Plan: Patient is at baseline. She does not understand why she requires assisted living. (2) Hypertension Qualifiers: Hypertension type: essential hypertension Qualified Code(s): I10 - Essential (primary) hypertension Is this a current diagnosis for this admission?: Yes Plan: Good blood pressure control. Continue current regimen. (3) Hyponatremia Is this a current diagnosis for this admission?: Yes Plan: Resolved (4) Rhabdomyolysis Qualifiers: Rhabdomyolysis type: non-traumatic Qualified Code(s): M62.82 - Rhabdomyolysis Is this a current diagnosis for this admission?: Yes Plan: Resolved - Time Time Spent with patient: Less than 15 minutes Medications reviewed and adjusted accordingly: Yes
[2018-05-15] MEDS ORDERED: TUBERCULIN,PURIF.PROT.DERIV. 5 TU/0.1 ML TEST 1 ML VIAL ID ONE (13:00)
[2018-05-15] MEDS: TRAZODONE HCL 50 MG TABLET PO SCH (22:36)
[2018-05-15] MEDS: ATORVASTATIN CALCIUM 20 MG TABLET PO SCH (22:36)
[2018-05-16] MEDS: HEPARIN SOD (PORCINE) 5,000 UNIT/ML 1 ML SYRINGE SUBCUT SCH ×3 (05:45→21:33)
[2018-05-16] MEDS: NIFEDIPINE 30 MG TAB.ER.24 PO SCH ×2 (09:12→21:38)
[2018-05-16] MEDS: DOCUSATE SODIUM 100 MG CAPSULE PO SCH ×2 (09:12→17:14)
[2018-05-16] MEDS: ASPIRIN 81 MG TABLET, ENT COATED PO SCH (09:12)
--- NOTE | 2018-05-16 16:12 | PDOC PROGRESS REPORT ---
Subjective Progress Note for:: 05/16/18 Subjective:: Staff reports that the patient has been talking to herself in a loud whisper. She was doing this just before I walked into the room. Reason For Visit: TYO,FLOR Physical Exam Vital Signs: Temp Pulse Resp BP Pulse Ox 98.5 F 76 14 122/57 L 100 05/16/18 11:34 05/16/18 11:34 05/16/18 11:34 05/16/18 11:34 05/16/18 11:34 Intake & Output 05/15/18 05/16/18 05/17/18 06:59 06:59 06:59 Intake Total 600 750 Balance 600 750 Weight 102.2 kg 47.8 kg General appearance: PRESENT: cooperative Respiratory exam: PRESENT: clear to auscultation oneil. ABSENT: rales, rhonchi, wheezes Cardiovascular exam: PRESENT: RRR, +S1, +S2 Neurological exam: PRESENT: alert, awake Psychiatric exam: PRESENT: other - She has been talking to herself all day in a very loud whisper that you can hear at the nurses station She did let me auscultate her heart and lungs today but when the subject of assisted living came up she asked me to leave. Focused psych exam: PRESENT: other - As above Results Laboratory Results: 05/11/18 05:24 05/11/18 05:24 04/26/18 04/26/18 04/26/18 10:02 10:02 10:02 Creatine Kinase 3062 H CK-MB (CK-2) 6.62 H Troponin I 0.048 04/27/18 05/01/18 05:01 04:23 Creatine Kinase 1338 H 303 H CK-MB (CK-2) Troponin I Impressions: Head MRI 04/26/18 00:00 IMPRESSION: Chronic changes. No acute intracranial abnormality. EVIDENCE OF ACUTE STROKE: NO. Assessment & Plan - Diagnosis (1) Dementia Qualifiers: Dementia type: vascular dementia Dementia behavioral disturbance: with behavioral disturbance Qualified Code(s): F01.51 - Vascular dementia with behavioral disturbance Is this a current diagnosis for this admission?: Yes Plan: Stable. She has however displaying significantly different behavior today as noted above. (2) Hypertension Qualifiers: Hypertension type: essential hypertension Qualified Code(s): I10 - Essential (primary) hypertension Is this a current diagnosis for this admission?: Yes Plan: Continue current regimen (3) Hyponatremia Is this a current diagnosis for this admission?: Yes Plan: Resolved (4) Rhabdomyolysis Qualifiers: Rhabdomyolysis type: non-traumatic Qualified Code(s): M62.82 - Rhabdomyolysis Is this a current diagnosis for this admission?: Yes Plan: Resolved - Time Time Spent with patient: Less than 15 minutes Medications reviewed and adjusted accordingly: Yes
[2018-05-16] MEDS: ATORVASTATIN CALCIUM 20 MG TABLET PO SCH (21:38)
[2018-05-16] MEDS: TRAZODONE HCL 50 MG TABLET PO SCH (21:38)
[2018-05-17] MEDS: HEPARIN SOD (PORCINE) 5,000 UNIT/ML 1 ML SYRINGE SUBCUT SCH ×3 (05:38→21:31)
[2018-05-17] MEDS: NIFEDIPINE 30 MG TAB.ER.24 PO SCH ×2 (10:23→21:32)
[2018-05-17] MEDS: ASPIRIN 81 MG TABLET, ENT COATED PO SCH (10:23)
[2018-05-17] MEDS: DOCUSATE SODIUM 100 MG CAPSULE PO SCH ×2 (10:23→17:06)
--- NOTE | 2018-05-17 14:25 | PDOC PROGRESS REPORT ---
Subjective Progress Note for:: 05/17/18 Subjective:: The patient is a 62-year-old female with a past medical history of DM 2, anemia, hypertension, dementia currently under IVC status and awaiting placement in a long-term care facility. She was seen on morning rounds with her fhjqfal-az-xmb, Marcin, present. She was found sitting up to the edge of the bed, comfortably on room air. She tells me that she is ready to go home and that Marcin is here to pick her up. She becomes very agitated when Marcin I attempted to explain that she is not ready to go home today and that we are trying to find a living arrangement for her where she will be able to maintain as much of her independence as possible but does have 24-ho ur assistance as needed (long-term care). The patient tells us that we should go out into the hallway to talk about this because she does not want to hear it. Marcin accompanied me into the hallway where he confirmed that he wishes to assist us in finding placement for his btaqyv-[id number]. He believes that she is unsafe at home. He states that she has been talking with people in the room who are not present. We discussed that she is medically stable and that we are awaiting placement at this time. ROS is limited secondary to patient's participation in conversation; appears to be comfortable and not in any acute distress. The patient and her [id number] have no questions at this time. No concerns per nursing. Reason For Visit: RHABDO,AMS Physical Exam Vital Signs: Temp Pulse Resp BP Pulse Ox 98.5 F 78 12 138/70 H 99 05/17/18 12:44 05/17/18 12:44 05/17/18 12:44 05/17/18 12:44 05/17/18 12:44 Intake & Output 05/16/18 05/17/18 05/18/18 06:59 06:59 06:59 Intake Total 750 1833 Balance 750 1833 Weight 47.8 kg 47.8 kg General appearance: PRESENT: no acute distress, thin, well-developed, well- nourished Head exam: PRESENT: atraumatic, normocephalic Eye exam: PRESENT: conjunctiva pink, EOMI, PERRLA. ABSENT: scleral icterus Ear exam: PRESENT: normal external ear exam Mouth exam: PRESENT: moist, tongue midline Extremities exam: PRESENT: full ROM. ABSENT: calf tenderness, clubbing, pedal edema Neurological exam: PRESENT: alert, awake, oriented to person, oriented to place, CN II-XII grossly intact. ABSENT: oriented to time, oriented to situation, motor sensory deficit Psychiatric exam: PRESENT: agitated, appropriate affect. ABSENT: homicidal ideation, suicidal ideation Skin exam: PRESENT: dry, intact, warm. ABSENT: cyanosis, rash Additional comments: Exam limited secondary to patient's refusal. Results Laboratory Results: 05/11/18 05:24 05/11/18 05:24 04/26/18 04/26/18 04/26/18 10:02 10:02 10:02 Creatine Kinase 3062 H CK-MB (CK-2) 6.62 H Troponin I 0.048 04/27/18 05/01/18 05:01 04:23 Creatine Kinase 1338 H 303 H CK-MB (CK-2) Troponin I Impressions: Head MRI 04/26/18 00:00 IMPRESSION: Chronic changes. No acute intracranial abnormality. EVIDENCE OF ACUTE STROKE: NO. Assessment & Plan - Diagnosis (1) Dementia Qualifiers: Dementia type: vascular dementia Dementia behavioral disturbance: with behavioral disturbance Qualified Code(s): F01.51 - Vascular dementia with behavioral disturbance Is this a current diagnosis for this admission?: Yes Plan: Chronic vascular dementia with behavioral disturbance and wandering risk. Continue clonidine patch; may assist in mitigating patient's agitation and behavioral disturbances. Trazadone nightly for sleep. Seroquel daily as needed for acute agitation. Discharge planning is consulted; awaiting jail placement. (2) Hypertension Qualifiers: Hypertension type: essential hypertension Qualified Code(s): I10 - Essential (primary) hypertension Is this a current diagnosis for this admission?: Yes Plan: Acceptable blood pressures. On average blood pressures are 140-160/70s. Patient is intermittently compliant with oral medications. Clonidine 0.1 mg/24 patch and Nifedipine 90 mg twice daily. (3) Hyponatremia Is this a current diagnosis for this admission?: Yes Plan: Resolved. (4) Rhabdomyolysis Qualifiers: Rhabdomyolysis type: non-traumatic Qualified Code(s): M62.82 - Rhabdomyolysis Is this a current diagnosis for this admission?: Yes Plan: Resolved. Encourage p.o. fluid intake. - Time Time Spent with patient: Less than 15 minutes Medications reviewed and adjusted accordingly: Yes Anticipated discharge: SNF Within: when bed available
[2018-05-17] MEDS: TRAZODONE HCL 50 MG TABLET PO SCH (21:32)
[2018-05-17] MEDS: ATORVASTATIN CALCIUM 20 MG TABLET PO SCH (21:32)
[2018-05-18] MEDS: HEPARIN SOD (PORCINE) 5,000 UNIT/ML 1 ML SYRINGE SUBCUT SCH ×3 (05:17→21:36)
[2018-05-18] MEDS: DOCUSATE SODIUM 100 MG CAPSULE PO SCH ×2 (09:41→17:20)
[2018-05-18] MEDS: NIFEDIPINE 30 MG TAB.ER.24 PO SCH ×2 (09:45→21:38)
[2018-05-18] MEDS: ASPIRIN 81 MG TABLET, ENT COATED PO SCH (09:45)
[2018-05-18] MEDS ORDERED: HALOPERIDOL LACTATE INJ 5 MG/1 ML VIAL IV ONE (12:30)
[2018-05-18] MEDS ORDERED: TUBERCULIN,PURIF.PROT.DERIV. 5 TU/0.1 ML TEST 1 ML VIAL ID ONE (13:00)
--- NOTE | 2018-05-18 14:59 | PDOC PROGRESS REPORT ---
<DAVID SHAH - Last Filed: 05/18/18 14:51> Subjective Progress Note for:: 05/18/18 Subjective:: The patient is a 62-year-old female with a past medical history of DM 2, anemia, hypertension, dementia currently under IVC status and awaiting placement in a long-term care facility. She was seen on morning rounds. She was found sitting up to the edge of the bed, comfortably on room air. She tells me that she is feeling much better today; has just had a large bowel movement. She denies additional constipation. She asks to go home. The patient is told that we need to place a PPD to screen for tuberculosis. She states that "you are not going to put anything in my body." She then refuses blood draw for Gold test. When told that this will help us get her ready for her discharge, she maintains that we are not allowed to touch her. However, she does consent to an exam. ROS is limited secondary to patient's participation in conversation; she does deny headache, chest pain, abdominal pain, constipation. Appears to be comfortable and not in any acute distress. No concerns per nursing. Reason For Visit: FLOR ALAMO Physical Exam Vital Signs: Temp Pulse Resp BP Pulse Ox 98.6 F 77 13 140/66 H 100 05/18/18 08:00 05/18/18 08:00 05/18/18 08:00 05/18/18 08:00 05/18/18 08:00 Intake & Output 05/17/18 05/18/18 05/19/18 06:59 06:59 06:59 Intake Total 1833 505 Balance 1833 505 Weight 47.8 kg 47.8 kg General appearance: PRESENT: no acute distress, thin, well-developed, well- nourished Head exam: PRESENT: atraumatic, normocephalic Eye exam: PRESENT: conjunctiva pink, EOMI, PERRLA. ABSENT: scleral icterus Ear exam: PRESENT: normal external ear exam Mouth exam: PRESENT: moist, tongue midline Neck exam: ABSENT: carotid bruit, JVD, lymphadenopathy, thyromegaly Respiratory exam: PRESENT: clear to auscultation oneil, symmetrical, unlabored. ABSENT: rales, rhonchi, wheezes Cardiovascular exam: PRESENT: RRR, +S1, +S2. ABSENT: diastolic murmur, rubs, systolic murmur Pulses: PRESENT: normal dorsalis pedis pul Vascular exam: PRESENT: normal capillary refill GI/Abdominal exam: PRESENT: normal bowel sounds, soft. ABSENT: distended, guarding, mass, organolmegaly, rebound, tenderness Rectal exam: PRESENT: deferred Extremities exam: PRESENT: full ROM. ABSENT: calf tenderness, clubbing, pedal edema Neurological exam: PRESENT: alert, awake, oriented to person, oriented to place, oriented to time, oriented to situation, CN II-XII grossly intact. ABSENT: motor sensory deficit Psychiatric exam: PRESENT: appropriate affect, normal mood. ABSENT: homicidal ideation, suicidal ideation Skin exam: PRESENT: dry, intact, warm. ABSENT: cyanosis, rash Results Laboratory Results: 05/11/18 05:24 05/11/18 05:24 04/26/18 04/26/18 04/26/18 10:02 10:02 10:02 Creatine Kinase 3062 H CK-MB (CK-2) 6.62 H Troponin I 0.048 04/27/18 05/01/18 05:01 04:23 Creatine Kinase 1338 H 303 H CK-MB (CK-2) Troponin I Impressions: Head MRI 04/26/18 00:00 IMPRESSION: Chronic changes. No acute intracranial abnormality. EVIDENCE OF ACUTE STROKE: NO. Assessment & Plan - Diagnosis (1) Dementia Qualifiers: Dementia type: vascular dementia Dementia behavioral disturbance: with behavioral disturbance Qualified Code(s): F01.51 - Vascular dementia with behavioral disturbance Is this a current diagnosis for this admission?: Yes Plan: Chronic vascular dementia with behavioral disturbance and wandering risk. Continue clonidine patch; may assist in mitigating patient's agitation and behavioral disturbances. Trazadone nightly for sleep. Seroquel daily as needed for acute agitation. Discharge planning is consulted; awaiting intermediate accountant placement. Spoke with psychiatry service today regarding the need to place a PPD in patient who has been determined to lack capacity. Per Dr. Mario Reno has cleared with risk management our authority to place PPD despite patient's objections. The patient's vohfrva-qc-qpv, Nolberto Mann, was contacted. The purpose of the TB screening was explained, Mr. Mann stated that he wants us to do whatever is necessary to take care of Ms. Medellin and has no objections to us placing a PPD. He is aware, and understands, that she is likely to become quite agitated and may require short-term restraints during the process. Nursing was advised of confirmed approval by psychiatry, risk management, family and hospitalist team to place PPD today. Haldol 2.5 mg IM once prn is ordered. (2) Hypertension Qualifiers: Hypertension type: essential hypertension Qualified Code(s): I10 - Essential (primary) hypertension Is this a current diagnosis for this admission?: Yes Plan: Acceptable blood pressures. On average blood pressures are 140-160/70s. Patient is intermittently compliant with oral medications. Clonidine 0.1 mg/24 patch and Nifedipine 90 mg twice daily. (3) Hyponatremia Is this a current diagnosis for this admission?: Yes Plan: Resolved. (4) Rhabdomyolysis Qualifiers: Rhabdomyolysis type: non-traumatic Qualified Code(s): M62.82 - Rhabdom yolysis Is this a current diagnosis for this admission?: Yes Plan: Resolved. Encourage p.o. fluid intake. - Time Time Spent with patient: 15-24 minutes Medications reviewed and adjusted accordingly: Yes Anticipated discharge: Other - LTC Within: when bed available <ANABEL CABRERA - Last Filed: 05/19/18 13:29> Subjective Reason For Visit: FLOR ALAMO Physical Exam Vital Signs: Temp Pulse Resp BP Pulse Ox 98.5 F 76 18 152/66 H 100 05/19/18 11:31 05/19/18 11:31 05/19/18 11:31 05/19/18 11:31 05/19/18 11:31 Intake & Output 05/18/18 05/19/18 05/20/18 06:59 06:59 06:59 Intake Total 505 1178 Balance 505 1178 Weight 105 lb 6.095 oz 104 lb 15.04 oz Results Laboratory Results: 05/11/18 05:24 05/11/18 05:24 04/26/18 04/26/18 04/26/18 10:02 10:02 10:02 Creatine Kinase 3062 H CK-MB (CK-2) 6.62 H Troponin I 0.048 04/27/18 05/01/18 05:01 04:23 Creatine Kinase 1338 H 303 H CK-MB (CK-2) Troponin I Impressions: Head MRI 12/15/18 00:00 IMPRESSION: Chronic changes. No acute intracranial abnormality. EVIDENCE OF ACUTE STROKE: NO. Assessment & Plan - Plan Summary Plan Summary: discussed plan with mid-level - agree with plan- i did not see patient myself
[2018-05-18] MEDS: ATORVASTATIN CALCIUM 20 MG TABLET PO SCH (21:38)
[2018-05-18] MEDS: TRAZODONE HCL 50 MG TABLET PO SCH (21:38)
[2018-05-19] MEDS: HEPARIN SOD (PORCINE) 5,000 UNIT/ML 1 ML SYRINGE SUBCUT SCH ×3 (05:46→21:24)
[2018-05-19] MEDS: DOCUSATE SODIUM 100 MG CAPSULE PO SCH ×2 (09:56→17:41)
[2018-05-19] MEDS: NIFEDIPINE 30 MG TAB.ER.24 PO SCH ×2 (09:56→21:28)
[2018-05-19] MEDS: ASPIRIN 81 MG TABLET, ENT COATED PO SCH (09:56)
[2018-05-19] MEDS: CLONIDINE 0.1 MG/24 HR PATCH.TDWK TD SCH (09:57)
--- NOTE | 2018-05-19 10:57 | PDOC PROGRESS REPORT ---
<DAVID SHAH - Last Filed: 05/19/18 10:46> Subjective Progress Note for:: 05/19/18 Subjective:: The patient is a 62-year-old female with a past medical history of DM 2, anemia, hypertension, dementia currently under IVC status and awaiting placement in a long-term care facility. She was seen on morning rounds. She was found resting in bed, comfortably on room air. She tells me that she is feeling well today. She asks about her PPD test placed yesterday; states she is hopeful that she can be discharged home now that it has been placed. She is informed that the test can not be read until tomorrow; following that we will talk with discharge planners about discharge. The patient states that she is pleased by this and hopes "it reads the right way." She denies fever, chills, headache, chest pain, palpitations, dyspnea, abdominal pain. She has no other questions or concerns today. No concerns per nursing. Reason For Visit: CALLY,FLOR Physical Exam Vital Signs: Temp Pulse Resp BP Pulse Ox 98.3 F 71 20 137/58 H 100 05/19/18 00:00 05/19/18 00:00 05/19/18 00:00 05/19/18 00:00 05/19/18 00:00 Intake & Output 05/18/18 05/19/18 05/20/18 06:59 06:59 06:59 Intake Total 505 1178 Balance 505 1178 Weight 47.8 kg 47.6 kg General appearance: PRESENT: no acute distress, cooperative, thin, well- developed Head exam: PRESENT: atraumatic, normocephalic Eye exam: PRESENT: conjunctiva pink, EOMI, PERRLA. ABSENT: scleral icterus Ear exam: PRESENT: normal external ear exam Mouth exam: PRESENT: moist, tongue midline Neck exam: ABSENT: carotid bruit, JVD, lymphadenopathy, thyromegaly Respiratory exam: PRESENT: clear to auscultation oneil, symmetrical, unlabored. ABSENT: rales, rhonchi, wheezes Cardiovascular exam: PRESENT: RRR, +S1, +S2. ABSENT: diastolic murmur, rubs, systolic murmur Pulses: PRESENT: normal dorsalis pedis pul Vascular exam: PRESENT: normal capillary refill GI/Abdominal exam: PRESENT: normal bowel sounds, soft. ABSENT: distended, guarding, mass, organolmegaly, rebound, tenderness Rectal exam: PRESENT: deferred Extremities exam: PRESENT: full ROM. ABSENT: calf tenderness, clubbing, pedal edema Musculoskeletal exam: PRESENT: ambulatory Neurological exam: PRESENT: alert, awake, oriented to person, oriented to place, oriented to time, oriented to situation, CN II-XII grossly intact, other - Technically orientated and conversationally appropriate; clearly does not appreciate risks, complex/abstract ideas. Reference capacity evaluation by psych on 05/09 (note dated 05/11).. ABSENT: motor sensory deficit Psychiatric exam: PRESENT: appropriate affect, normal mood. ABSENT: homicidal ideation, suicidal ideation Skin exam: PRESENT: dry, intact, warm. ABSENT: cyanosis, rash Results Laboratory Results: 05/11/18 05:24 05/11/18 05:24 04/26/18 04/26/18 04/26/18 10:02 10:02 10:02 Creatine Kinase 3062 H CK-MB (CK-2) 6.62 H Troponin I 0.048 04/27/18 05/01/18 05:01 04:23 Creatine Kinase 1338 H 303 H CK-MB (CK-2) Troponin I Impressions: Head MRI 04/26/18 00:00 IMPRESSION: Chronic changes. No acute intracranial abnormality. EVIDENCE OF ACUTE STROKE: NO. Assessment & Plan - Diagnosis (1) Dementia Qualifiers: Dementia type: vascular dementia Dementia behavioral disturbance: with behavioral disturbance Qualified Code(s): F01.51 - Vascular dementia with behavioral disturbance Is this a current diagnosis for this admission?: Yes Plan: Chronic vascular dementia with behavioral disturbance and wandering risk. Reference capacity evaluation by psychiatry on 05/09 (note dated 05/11). Continue clonidine patch; may assist in mitigating patient's agitation and behavioral disturbances. Trazadone nightly for sleep. Seroquel daily as needed for acute agitation. Discharge planning is consulted; awaiting terminal worker placement. PPD successfully placed to Left FA on 05/18/17; read 05/19-05/20. (2) Hypertension Qualifiers: Hypertension type: essential hypertension Qualified Code(s): I10 - Essential (primary) hypertension Is this a current diagnosis for this admission?: Yes Plan: Acceptable blood pressures. On average blood pressures are 120-140/60s. Patient is intermittently compliant with oral medications. Clonidine 0.1 mg/24 patch and Nifedipine 90 mg twice daily. (3) Hyponatremia Is this a current diagnosis for this admission?: Yes Plan: Resolved. (4) Rhabdomyolysis Qualifiers: Rhabdomyolysis type: non-traumatic Qualified Code(s): M62.82 - Rhabdomyolysis Is this a current diagnosis for this admission?: Yes Plan: Resolved. Encourage p.o. fluid intake. - Time Time Spent with patient: Less than 15 minutes Medications reviewed and adjusted accordingly: Yes Anticipated discharge: Other - LTC Within: when bed available - PPD will be read tomorrow. <ANABEL CABRERA - Last Filed: 05/19/18 13:26> Subjective Reason For Visit: FLOR ALAMO Physical Exam Vital Signs: Temp Pulse Resp BP Pulse Ox 98.5 F 76 18 152/66 H 100 05/19/18 11:31 05/19/18 11:31 05/19/18 11:31 05/19/18 11:31 05/19/18 11:31 Intake & Output 05/18/18 05/19/18 05/20/18 06:59 06:59 06:59 Intake Total 505 1178 Balance 505 1178 Weight 105 lb 6.095 oz 104 lb 15.04 oz Results Laboratory Results: 05/11/18 05:24 05/11/18 05:24 04/26/18 04/26/18 04/26/18 10:02 10:02 10:02 Creatine Kinase 3062 H CK-MB (CK-2) 6.62 H Troponin I 0.048 04/27/18 05/01/18 05:01 04:23 Creatine Kinase 1338 H 303 H CK-MB (CK-2) Troponin I Impressions: Head MRI 04/26/18 00:00 IMPRESSION: Chronic changes. No acute intracranial abnormality. EVIDENCE OF ACUTE STROKE: NO. Assessment & Plan - Plan Summary Plan Summary: discussed with mid-level about patient- i did not personally see patient
[2018-05-19] MEDS: TRAZODONE HCL 50 MG TABLET PO SCH (21:28)
[2018-05-19] MEDS: ATORVASTATIN CALCIUM 20 MG TABLET PO SCH (21:28)
[2018-05-20] MEDS: HEPARIN SOD (PORCINE) 5,000 UNIT/ML 1 ML SYRINGE SUBCUT SCH ×3 (05:28→21:21)
[2018-05-20] MEDS: DOCUSATE SODIUM 100 MG CAPSULE PO SCH ×2 (10:07→17:21)
[2018-05-20] MEDS: ASPIRIN 81 MG TABLET, ENT COATED PO SCH (10:11)
[2018-05-20] MEDS: NIFEDIPINE 30 MG TAB.ER.24 PO SCH ×2 (10:11→21:26)
--- NOTE | 2018-05-20 13:53 | PDOC PROGRESS REPORT ---
Subjective Progress Note for:: 05/20/18 Subjective:: The patient was resting quietly in bed. When I initiated the encounter she stared at me and said I hope you do not have any bad news. I replied that I did not have any news different from the last time I saw her. This in fact improved her mood. Reason For Visit: CALLY,FLOR Physical Exam Vital Signs: Temp Pulse Resp BP Pulse Ox 98.1 F 70 16 130/60 H 100 05/20/18 12:00 05/20/18 12:00 05/20/18 12:00 05/20/18 12:00 05/20/18 12:00 Intake & Output 05/19/18 05/20/18 05/21/18 06:59 06:59 06:59 Intake Total 1178 858 237 Balance 1178 858 237 Weight 47.6 kg General appearance: PRESENT: no acute distress Head exam: PRESENT: normocephalic Teeth exam: PRESENT: poor dentation Respiratory exam: PRESENT: clear to auscultation oneil, symmetrical, unlabored. ABSENT: rales, rhonchi, wheezes Cardiovascular exam: PRESENT: RRR, +S1, +S2 GI/Abdominal exam: PRESENT: normal bowel sounds, soft. ABSENT: distended, tenderness Extremities exam: ABSENT: pedal edema Neurological exam: PRESENT: alert, awake, oriented to person, oriented to place Psychiatric exam: PRESENT: appropriate affect, normal mood. ABSENT: agitated, anxious Focused psych exam: ABSENT: restlessness Results Laboratory Results: 05/11/18 05:24 05/11/18 05:24 04/26/18 04/26/18 04/26/18 10:02 10:02 10:02 Creatine Kinase 3062 H CK-MB (CK-2) 6.62 H Troponin I 0.048 04/27/18 05/01/18 05:01 04:23 Creatine Kinase 1338 H 303 H CK-MB (CK-2) Troponin I Impressions: Head MRI 04/26/18 00:00 IMPRESSION: Chronic changes. No acute intracranial abnormality. EVIDENCE OF ACUTE STROKE: NO. Assessment & Plan - Diagnosis (1) Dementia Qualifiers: Dementia type: vascular dementia Dementia behavioral disturbance: with behavioral disturbance Qualified Code(s): F01.51 - Vascular dementia with behavioral disturbance Is this a current diagnosis for this admission?: Yes Plan: The patient is much better spirits than the last time I saw her. At that time we again discussed placement. She became quite upset. Today she was in a good mood. Unfortunately her vascular dementia is an ongoing chronic progressive condition. Her needs exceed her xlecuae-ss-qzk's ability to care for her at home. The patient is being evaluated by assisted living facilities (2) Hypertension Qualifiers: Hypertension type: essential hypertension Qualified Code(s): I10 - Ess ential (primary) hypertension Is this a current diagnosis for this admission?: Yes Plan: Continue current regimen. Blood pressure control has been adequate. (3) Hyponatremia Is this a current diagnosis for this admission?: Yes Plan: Resolved (4) Rhabdomyolysis Qualifiers: Rhabdomyolysis type: non-traumatic Qualified Code(s): M62.82 - Rhabdomyolysis Is this a current diagnosis for this admission?: Yes Plan: Resolved - Time Time Spent with patient: Less than 15 minutes Medications reviewed and adjusted accordingly: Yes Anticipated discharge: Other - Assisted living
[2018-05-20] MEDS: TRAZODONE HCL 50 MG TABLET PO SCH (21:26)
[2018-05-20] MEDS: ATORVASTATIN CALCIUM 20 MG TABLET PO SCH (21:26)
[2018-05-21] MEDS: HEPARIN SOD (PORCINE) 5,000 UNIT/ML 1 ML SYRINGE SUBCUT SCH ×2 (05:03→21:09)
[2018-05-21] MEDS: ASPIRIN 81 MG TABLET, ENT COATED PO SCH (10:02)
[2018-05-21] MEDS: DOCUSATE SODIUM 100 MG CAPSULE PO SCH (10:02)
[2018-05-21] MEDS: NIFEDIPINE 30 MG TAB.ER.24 PO SCH ×2 (10:03→21:13)
--- NOTE | 2018-05-21 13:24 | PDOC PROGRESS REPORT ---
Subjective Progress Note for:: 05/21/18 Subjective:: The patient was very upset this morning. Prior to entering the room you could hear her down the whole yelling in conversation or yelling at someone who was not in the room. These hallucinations are much more prevalent today than previously. Every day she tries to tell people that she does not need to go to a facility that she wants to return home. No matter how many times we tell her that her gpwkxjr-un-yen is on board with this and that she really is not safe to go home it just makes her more upset. Reason For Visit: FLOR ALAMO Physical Exam Vital Signs: Temp Pulse Resp BP Pulse Ox 98.5 F 70 14 101/58 L 100 05/21/18 07:48 05/21/18 07:48 05/21/18 07:48 05/21/18 07:48 05/21/18 07:48 Intake & Output 05/20/18 05/21/18 05/22/18 06:59 06:59 06:59 Intake Total 858 740 474 Balance 858 740 474 Weight 46.7 kg General appearance: PRESENT: other - The patient was very upset today. She argued her discharge plan with me. I repeatedly told her that there will be no change in our plan for placement. She has made to leave the room. Psychiatric exam: PRESENT: agitated Results Laboratory Results: 05/11/18 05:24 05/11/18 05:24 04/26/18 04/26/18 04/26/18 10:02 10:02 10:02 Creatine Kinase 3062 H CK-MB (CK-2) 6.62 H Troponin I 0.048 04/27/18 05/01/18 05:01 04:23 Creatine Kinase 1338 H 303 H CK-MB (CK-2) Troponin I Impressions: Head MRI 04/26/18 00:00 IMPRESSION: Chronic changes. No acute intracranial abnormality. EVIDENCE OF ACUTE STROKE: NO. Assessment & Plan - Diagnosis (1) Dementia Qualifiers: Dementia type: vascular dementia Dementia behavioral disturbance: with behavioral disturbance Qualified Code(s): F01.51 - Vascular dementia with behavioral disturbance Is this a current diagnosis for this admission?: Yes Plan: Chronic condition. As noted above today was a bad day that she was hallucinating and quite agitated. (2) Hypertension Qualifiers: Hypertension type: essential hypertension Qualified Code(s): I10 - Essential (primary) hypertension Is this a current diagnosis for this admission?: Yes Plan: Continue current medications (3) Hyponatremia Is this a current diagnosis for this admission?: Yes Plan: Resolved (4) Rhabdomyolysis Qualifiers: Rhabdomyolysis type: non-traumatic Qualified Code(s): M62.82 - Rhabdomyolysis Is this a current diagnosis for this admission?: Yes Plan: Resolved - Time Time Spent with patient: Less than 15 minutes Medications reviewed and adjusted accordingly: Yes Anticipated discharge: Other - Assisted living/memory unit
[2018-05-21] MEDS: TRAZODONE HCL 50 MG TABLET PO SCH (21:13)
[2018-05-21] MEDS: ATORVASTATIN CALCIUM 20 MG TABLET PO SCH (21:13)
[2018-05-22] MEDS: HEPARIN SOD (PORCINE) 5,000 UNIT/ML 1 ML SYRINGE SUBCUT SCH ×3 (05:01→21:37)
[2018-05-22] MEDS: NIFEDIPINE 30 MG TAB.ER.24 PO SCH ×2 (11:48→21:36)
[2018-05-22] MEDS: DOCUSATE SODIUM 100 MG CAPSULE PO SCH ×2 (11:52→17:48)
[2018-05-22] MEDS: ASPIRIN 81 MG TABLET, ENT COATED PO SCH (11:52)
--- NOTE | 2018-05-22 18:58 | PDOC PROGRESS REPORT ---
Subjective Progress Note for:: 05/22/18 Subjective:: The patient is more settled than yesterday but still very unhappy about the transition to a memory care facility. Reason For Visit: RHABDO,FLOR Physical Exam Vital Signs: Temp Pulse Resp BP Pulse Ox 98.4 F 77 16 122/58 L 100 05/22/18 09:43 05/22/18 09:43 05/22/18 09:43 05/22/18 09:43 05/22/18 09:43 Intake & Output 05/21/18 05/22/18 05/23/18 06:59 06:59 06:59 Intake Total 740 592 Balance 740 592 Weight 46.7 kg 45.6 kg General appearance: PRESENT: other - Unable to examine the patient again today. Results Laboratory Results: 05/11/18 05:24 05/11/18 05:24 04/26/18 04/26/18 04/26/18 10:02 10:02 10:02 Creatine Kinase 3062 H CK-MB (CK-2) 6.62 H Troponin I 0.048 04/27/18 05/01/18 05:01 04:23 Creatine Kinase 1338 H 303 H CK-MB (CK-2) Troponin I Impressions: Head MRI 04/26/18 00:00 IMPRESSION: Chronic changes. No acute intracranial abnormality. EVIDENCE OF ACUTE STROKE: NO. Assessment & Plan - Diagnosis (1) Dementia Qualifiers: Dementia type: vascular dementia Dementia behavioral disturbance: with behavioral disturbance Qualified Code(s): F01.51 - Vascular dementia with behavioral disturbance Is this a current diagnosis for this admission?: Yes Plan: Chronic condition. As noted above today was a bad day that she was hallucinating and quite agitated. (2) Hypertension Qualifiers: Hypertension type: essential hypertension Qualified Code(s): I10 - Essential (primary) hypertension Is this a current diagnosis for this admission?: Yes Plan: Continue current medications (3) Hyponatremia Is this a current diagnosis for this admission?: Yes Plan: Resolved (4) Rhabdomyolysis Qualifiers: Rhabdomyolysis type: non-traumatic Qualified Code(s): M62.82 - Rhabdomyolysis Is this a current diagnosis for this admission?: Yes Plan: Resolved - Time Time Spent with patient: Less than 15 minutes Medications reviewed and adjusted accordingly: Yes - Plan Summary Plan Summary: The patient has been accepted at a facility near [place]. Her hviwqzp-ey-vqu, who is the healthcare proxy, needs to sign paperwork for her admission. This had been in process today. By the end of the day the paperwork evidently had not been processed by the facility and the patient's transfer will likely occur tomorrow.
[2018-05-22] MEDS: ATORVASTATIN CALCIUM 20 MG TABLET PO SCH (21:36)
[2018-05-22] MEDS: TRAZODONE HCL 50 MG TABLET PO SCH (21:36)
[2018-05-23] MEDS: HEPARIN SOD (PORCINE) 5,000 UNIT/ML 1 ML SYRINGE SUBCUT SCH (05:11)
[2018-05-23] MEDS: ASPIRIN 81 MG TABLET, ENT COATED PO SCH (09:52)
[2018-05-23] MEDS: DOCUSATE SODIUM 100 MG CAPSULE PO SCH (09:52)
[2018-05-23] MEDS: NIFEDIPINE 30 MG TAB.ER.24 PO SCH (09:52)
--- NOTE | 2018-05-23 11:52 | PDOC TRANSFER SUMMARY ---
General - Admit/Disc Date/PCP Admission Date/Primary Care Provider: 04/26/18 11:58 KARI MYRICK MD Discharge Date: 05/23/18 - Discharge Diagnosis (1) Dementia Is this a current diagnosis for this admission?: Yes Summary: The patient has a history of vascular dementia. It has been progressing. The patient is a risk for wandering. The police have had to pick her up several ti mes. Her pnsookr-cc-ppx feels that he is unable to monitor her at home especially since she lives alone. Psychiatry saw the patient and feels she is not capable of making medical decisions. The patient is transitioning to a memory care unit. Unfortunately the patient does not feel that she requires this level of care and does not have enough insight to appreciate her situation. Her izhxxuw-xa-nvn, who is the healthcare proxy, in fact has agreed to the plan. (2) Hypertension Is this a current diagnosis for this admission?: Yes Summary: Stable on current medication regimen. Her blood pressure will increase slightly at times typically when she is agitated. (3) Hyponatremia Is this a current diagnosis for this admission?: Yes Summary: Present on admission but resolved (4) Rhabdomyolysis Is this a current diagnosis for this admission?: Yes Summary: Present on admission but resolved - Additional Information Resuscitation Status: Full Code Discharge Diet: Diabetic Discharge Activity: Activity As Tolerated Home Medications: Clonidine HCl [Catapres 0.1 mg Tablet] 0.1 mg PO Q12 04/24/18 Ibuprofen [Motrin 800 mg Tablet] 800 mg PO Q12 04/24/18 Metformin HCl [Glucophage 500 mg Tablet] 500 mg PO BIDBS 04/24/18 Acetaminophen [Tylenol 325 mg Tablet] 650 mg PO Q4HP PRN tablet 05/23/18 Aspirin [Ecotrin 81 mg EC Tablet] 81 mg PO DAILY tabec 05/23/18 Atorvastatin Calcium [Lipitor 20 mg Tablet] 20 mg PO QHS tablet 05/23/18 Clonidine [Catapres-Tts 1 (0.1 mg/24 Hr) Transderm Patch] 1 each TD Mo@1000 patch.tdwk 05/23/18 Docusate Sodium [Colace 100 mg Capsule] 100 mg PO BID capsule 05/23/18 Nifedipine [Procardia XL 30 mg Tablet] 90 mg PO Q12 tab.er.24 05/23/18 Quetiapine Fumarate [Seroquel 25 mg Tablet] 25 mg PO DAILYP PRN tablet 05/23/18 Trazodone HCl [Desyrel 50 mg Tablet] 50 mg PO QHS tablet 05/23/18 History of Present Illness Admission Date/PCP: 04/26/18 11:58 KARI MYRICK MD Patient complains of: The patient was initially brought in as she was found wandering. She did have muscle pain and was found to have rhabdomyolysis. History of Present Illness: SIRENA ZHAO is a 62 year old female with a history of dementia. The dementia has been worsening. She was found to be wandering and required police knot picker cloth several times. On this particular episode she ambulated quite a distance and was found to have rhabdomyolysis when initially evaluated in the emergency department. She was also noted to have hyponatremia. She does have a history of hypertension. The patient was admitted. She has been on involuntary commitment since admission. Hospital Course Hospital Course: The patient has a very prolonged but fairly uneventful hospital course. The rhabdomyolysis and hyponatremia have resolved. Her blood pressure has been stable. She has had intermittent episodes of hallucinations and can be extremely argumentative when talking about her disposition. She has been accepted at a memory care unit and will be transferring today. Physical Exam Vital Signs: Temp Pulse Resp BP Pulse Ox 98.2 F 70 16 119/62 100 05/23/18 08:00 05/23/18 08:00 05/23/18 08:00 05/23/18 08:00 05/23/18 08:00 Intake & Output 05/22/18 05/23/18 05/24/18 06:59 06:59 06:59 Intake Total 592 268 Balance 592 268 Weight 45.6 kg 47.1 kg General appearance: PRESENT: no acute distress Head exam: PRESENT: normocephalic Teeth exam: PRESENT: poor dentation Respiratory exam: PRESENT: clear to auscultation oneil. ABSENT: rales, rhonchi, wheezes Cardiovascular exam: PRESENT: RRR, +S1, +S2 GI/Abdominal exam: PRESENT: normal bowel sounds, soft. ABSENT: tenderness Neurological exam: PRESENT: alert, awake, oriented to person, oriented to place, oriented to situation Results Laboratory Results: 05/11/18 05:24 05/11/18 05:24 04/26/18 04/26/18 04/26/18 10:02 10:02 10:02 Creatine Kinase 3062 H CK-MB (CK-2) 6.62 H Troponin I 0.048 04/27/18 05/01/18 05:01 04:23 Creatine Kinase 1338 H 303 H CK-MB (CK-2) Troponin I Impressions: Head MRI 04/26/18 00:00 IMPRESSION: Chronic changes. No acute intracranial abnormality. EVIDENCE OF ACUTE STROKE: NO. Transfer Plan - Disposition Transfer Plan: The patient will be transferring to a memory care unit. - Time Spent with Patient Time spent with patient: Less than 30 Minutes Qualifiers - * PATIENT BEING DISCHARGED WITH ANY OF THE FOLLOWING DIAGNOSIS: No Plan Discharge Plan: As outlined above Time Spent: Less than 30 Minutes
[2018-05-23 12:06] VITALS: BP 118/68
== END 2018-05-23 13:10 | DRG 884 ==
LOC: ER 09:19 → EH 11:58 → 4N 13:37
PROVIDERS: ADMIT Family Medicine; ATTEND Family Medicine
DX: F01.51 Vascular dementia, unspecified severity, with behavioral disturbance (principal); E87.1 Hypo-osmolality and hyponatremia; M62.82 Rhabdomyolysis; I10 Essential (primary) hypertension; E11.9 Type 2 diabetes mellitus without complications; Z79.84 Long term (current) use of oral hypoglycemic drugs; Z79.899 Other long term (current) drug therapy
CPT/HCPCS: 36415; 70553; 80048; 80053; 80061; 81001; 82140; 82550; 82553; 82962; 83036; 83735; 84443; 84484; 85025; 85027; 85610; 85730; 93005; 93010; 99285; A9576; J1630; J1644; J2060; J3490; J7030